=== PATIENT | female | born 1995 | race Caucasian/White ===

== ENCOUNTER 2022-12-19 17:47 | Emergency (ER) | payer OTHER, SELFPAY ==
[2022-12-19 17:55] VITALS: BP 117/80; PULSE 130; RESP 18; TEMP 37.1; O2SAT 99; BMI 32.3
[2022-12-19 18:19] VITALS: O2SAT 99
[2022-12-19 18:25] LABS: SARS-CoV-2 Ag NEGATIVE (NEGATIVE)
--- NOTE | 2022-12-19 18:33 | ED.GENADUL1 ---
HPI - General Adult General Chief complaint: Fever Stated complaint: FEVER, COUGH Time Seen by Provider: 12/19/22 17:56 Source: patient Mode of arrival: walk-in History of Present Illness HPI narrative: patient already diagnosed with bronchitis and bilateral ear infections - she is on augmentin and tessalon perles but is not taking tylenol or motrin. She was sent here by her family who told her that her skin looked yellow . No abdominal pain, vomiting or discolored stools. She complains of cough, achiness throughout the body and continued ear pain. Related Data Home Medications Medication Instructions Recorded Confirmed amoxicillin 875 mg-potassium 1 tab PO Q12H 12/19/22 12/19/22 clavulanate 125 mg tablet benzonatate 200 mg capsule 200 mg PO TID PRN cough 12/19/22 12/19/22 methylprednisolone 4 mg tablets in 4 mg PO . DIRECTED 12/19/22 12/19/22 a dose pack Allergies Allergy/AdvReac Type Severity Reaction Status Date / Time codeine Allergy Severe Verified 12/19/22 17:55 Exam Narrative Exam Narrative: Nurses notes and vital signs reviewed and patient is not hypoxic. afebrile General: Well-appearing and in no apparent distress. Skin: Warm, dry, no pallor noted. No rash. No scleral icterus or jaundice Head: Normocephalic, atraumatic. Neck: Supple, non-tender. no meningismus. No cervical lymphadenopathy. Eye: Pupils are equal, round and EOMI. No scleral icterus. Ears, Nose, Mouth, and Throat: TM are dull and erythematous bilaterally. Mild nasal mucosal hypertrophy. Oral mucosa is moist, mild posterior oropharynx erythema without exudate, uvula is mid-line Cardiovascular: Tachycardia Respiratory: No accessory muscle use or respiratory distress. Lungs with scattered rhonchi, no wheezing or ralesi Back: No CVA tenderness Musculoskeletal: normal ROM GI: Abdomen is soft, non-distended. Normal bowel sounds. No focal tenderness to palpation. No rebound, guarding, or rigidity noted. Neurological: A&O x4. No cranial nerve dysfunction observed. No truncal ataxia. Moves all extremities. Sensation intact. Psychiatric: Cooperative and interactive. Normal mood and affect. Constitutional Vital Signs, click to edit/add: Last Vital Signs Temp 98.8 F 12/19/22 17:55 Pulse 130 H 12/19/22 17:55 Resp 18 12/19/22 17:55 BP 117/80 12/19/22 17:55 Pulse Ox 99 12/19/22 18:19 O2 Del Method Room Air 12/19/22 18:19 Course Vital Signs Vital signs: Vital Signs Temperature 98.8 F 12/19/22 17:55 Pulse Rate 130 H 12/19/22 17:55 Respiratory Rate 18 12/19/22 17:55 Blood Pressure 117/80 12/19/22 17:55 Pulse Oximetry 99 12/19/22 17:55 Oxygen Delivery Method Room Air 12/19/22 17:55 Temperature 98.8 F 12/19/22 17:55 Pulse Rate 130 H 12/19/22 17:55 Respiratory Rate 18 12/19/22 17:55 Blood Pressure 117/80 12/19/22 17:55 Pulse Oximetry 99 12/19/22 18:19 Oxygen Delivery Method Room Air 12/19/22 18:19 Medical Decision Making MDM Narrative Medical decision making narrative: Covid swab was negative. Exam is consistent with bilateral ear infection and she has achiness associated with her illness. She was informed of results and given reassurance. Patient advised to rest, stay at home, practice social distancing, take Motrin and Tylenol for pain and fever if not allergic, stay well hydrated with Gatorade or similar drinks if vomiting or eat as tolerated if not and take any meds as prescribed. Reviewed reasons to return including rapid increase in respiratory rate, shortness of breath, confusion, inability to keep down sips of swallowed liquids for more than 24 hours. Asked patient to encourage any ill contacts to stay home and practice similar advice. Lab Data Lab results reviewed: Yes I reviewed the patient's lab results Labs: Lab Results 12/19/22 Range/Units 18:00 SARS-CoV-2 (PCR) Negative (NEGATIVE) Discharge Plan Discharge Chief Complaint: Fever Clinical Impression: Otitis media, Bronchitis Time of Disposition Decision: 18:38 Prescriptions / Home Meds: No Action amoxicillin-pot clavulanate 875-125 mg tablet 1 tab PO Q12H Patient Comments: STARTED 12/17 X 10DAYS benzonatate 200 mg capsule 200 mg PO TID PRN (Reason: cough) Patient Comments: STARTED 12/17 X 10 DAYS methylprednisolone 4 mg tablets,dose pack 4 mg PO . DIRECTED Patient Comments: STARTED ON 12/17 X 6 DAYS Instructions: Ear Infection (ED), Acute Bronchitis (ED) Stand Alone Forms: Portal Instructions Referrals: Physician,Non-Staff, MD [Primary Care Provider] - 1 week
[2022-12-19 18:45] VITALS: PULSE 110
[2022-12-20 14:11] LABS: SARS-CoV-2 NAA NOT DETECTED (NOT DETECTE)
== END 2022-12-19 18:48 | disposition home or self-care (01) ==
PROVIDERS: Emergency Provider Emergency Medicine
DX: J40 Bronchitis, not specified as acute or chronic (principal); H66.93 Otitis media, unspecified, bilateral; Z20.822 Contact with and (suspected) exposure to COVID-19
CPT/HCPCS: 87635; 87811; 99283; U0003

== ENCOUNTER 2023-09-08 19:23 | Emergency (ER) | payer SELFPAY ==
[2023-09-08 19:35] VITALS: BP 156/93; PULSE 96; TEMP 36.7; O2SAT 98; BMI 33.7
--- NOTE | 2023-09-08 20:06 | US_ITS ---
The [address] [address] Patient Name: JANNETTE LY MRN: [id number] date: 1995 Sex: F Assigned Patient Location: ER Current Patient Location: ER Accession/Order Number: [id number] Exam Date: 09/08/2023 21:39 Report Date: 09/08/2023 23:05 At the request of: ADELA MARKER Procedure: US pelvis transvaginal EXAM: US pelvis transvaginal HISTORY: R/O ovarian cyst COMPARISON: Correlation is made with CT abdomen and pelvis examination of the same date. TECHNIQUE: Real time pelvic ultrasound examination was performed using Duplex Doppler by a transvaginal approach. FINDINGS: The uterus is normal in size measuring 8.7 cm in length. There is a 0.8 x 0.7 x 0.9 cm suspected anterior uterine body fibroid. The endometrium is within normal limits with the stripe measuring up to 0.3 cm in thickness. A small amount of endometrial fluid is seen. The right ovary measures 3.1 x 1.8 x 2.1 cm, and the left ovary measures 4.1 x 2.4 x 2.4 cm. Arterial and venous blood flow is seen in both ovaries. There is a left ovarian follicle measures 2.7 x 2.1 x 2.3 cm. There is no significant free fluid. Prominent vessels are seen in the right hemipelvis. US/US pelvis transvaginal IMPRESSION: 1. Small left ovarian follicle without evidence of torsion. 2. Small uterine body fibroid. 3. Prominent vessels in the right hemipelvis which can be seen with pelvic congestion syndrome. 4. Small amount of fluid in the endometrial canal. Electronically authenticated by: Dennis MOSELEY Date: 09/08/2023 23:05
--- NOTE | 2023-09-08 20:06 | CT_ITS ---
[address] [address] Patient Name: JANNETTE LY MRN: [id number] date: 1995 Sex: F Assigned Patient Location: ER Current Patient Location: Accession/Order Number: [id number] Exam Date: 09/08/2023 20:53 Report Date: 09/08/2023 22:00 At the request of: ADELA MARKER Procedure: CT abdomen pelvis w con CT ABDOMEN AND PELVIS WITH CONTRAST: INDICATION: Right lower quadrant pain. COMPARISON: None. TECHNIQUE: Helical CT images of the abdomen and pelvis were obtained after the administration of intravenous contrast. Dose reduction techniques were achieved by using automated exposure control and/or adjustment of mA and/or kV according to patient size and/or use of iterative reconstruction technique. FINDINGS: LOWER CHEST: The visualized lung bases are clear. LIVER: There is hepatomegaly and diffuse hepatic steatosis. GALLBLADDER AND BILIARY SYSTEM: Unremarkable. SPLEEN: Unremarkable. PANCREAS: Unremarkable. ADRENAL GLANDS: Unremarkable. KIDNEYS AND URETERS: The kidneys enhance symmetrically. There is no hydronephrosis. No focal renal lesions. BLADDER: Under distended. GASTROINTESTINAL TRACT: No evidence of bowel obstruction or colitis. Normal appendix. VASCULATURE: Unremarkable. RETROPERITONEUM AND LYMPH NODES: No lymphadenopathy or mass. PERITONEUM/MESENTERY: No abdominal ascites. No free air. PELVIS: There are left ovarian cysts measuring 3.1 x 2.7 cm and 2.2 x 1.9 cm. No pelvic ascites or lymphadenopathy. BODY WALL: Unremarkable. BONES: Degenerative changes of the sacroiliac joints bilaterally. CT/CT abdomen pelvis w con IMPRESSION: 1. Left ovarian cysts. 2. Fatty liver. Electronically authenticated by: AYUSH CHIANG Date: 09/08/2023 22:00
--- NOTE | 2023-09-08 20:09 | ED.ABDPAIN1 ---
HPI - Abdominal Pain General Chief Complaint: Abdominal Pain Stated Complaint: Abdominal Pain Time Seen by Provider: 09/08/23 19:50 Source: patient Mode of arrival: walk-in Limitations: no limitations History of Present Illness HPI narrative: This 28-year-old female with a history of pyelonephritis presents for evaluation of right lower quadrant abdominal pain with radiation into her right flank associated with nausea and a fever earlier today. She has not had any vomiting or diarrhea. She denies any urinary symptoms. She doubts the possibility of but she did miss her last menstrual period. She states that the pain started on Wednesday and has been increasing in intensity since that time. On Wednesday she was seen by her family physician and an ultrasound was ordered but she cannot get the ultrasound performed until September 15 greater than 1 week from today. She states she cannot tolerate the pain until that time. At age 18 she did have a history of ovarian cyst. She denies any chest pain or shortness of breath. She denies any vaginal discharge odor or itching. She is not concerned about STDs. She is not having any dysuria or hematuria. Related Data Home Medications ?Medication ?Instructions ?Recorded ?Confirmed amoxicillin 875 mg-potassium 1 tab PO Q12H 12/19/22 12/19/22 clavulanate 125 mg tablet benzonatate 200 mg capsule 200 mg PO TID PRN cough 12/19/22 12/19/22 methylprednisolone 4 mg tablets in 4 mg PO . DIRECTED 12/19/22 12/19/22 a dose pack Allergies Allergy/AdvReac Type Severity Reaction Status Date / Time codeine Allergy Severe Verified 09/08/23 19:43 Review of Systems ROS Status of ROS 10 or more systems reviewed and unremarkable except as noted in history and below Exam Narrative Exam Narrative: Vital signs and Nursing Notes reviewed: She is afebrile, pulse and blood pressure are elevated, she is not hypoxic with pulse ox of 98% on room air General: Awake, alert, oriented, no acute distress, lying comfortably on the stretcher, ambulatory with a steady gait, no distress noted HEENT: Normocephalic atraumatic, mucous membranes are moist and pink, eyes are clear, normal conjunctiva, vision is grossly intact Neck: Supple, no meningeal signs, no anterior or posterior cervical lymphadenopathy Chest: Lungs are clear to auscultation with good air entry, there is no wheezing rhonchi or rales appreciated no accessory muscle use, patient is speaking in complete sentences-no chest wall tenderness to palpation CVS: Regular rate and rhythm S1-S2, no murmurs rubs or gallops, pulses are brisk and equal bilaterally ABD: Obese,Soft, nondistended, with tenderness in RLQ and rebound, negative Rovsing signs, bowel sounds are normal, no pulsatile masses appreciated Extremities: Moving all extremities, no lower extremity tenderness or swelling noted, negative Homans' sign, pulses are brisk and equal bilaterally Skin: Normal in appearance without rash,pallor, petechiae or purpura Neuro: No focal deficits Constitutional Vital Signs, click to edit/add: Last Vital Signs Temp 98.1 F 09/08/23 19:35 Pulse 96 H 09/08/23 19:35 Resp 18 09/08/23 19:35 BP 156/93 H 09/08/23 19:35 Pulse Ox 98 09/08/23 19:35 Course Vital Signs Vital signs: Vital Signs Temperature 98.1 F 09/08/23 19:35 Pulse Rate 96 H 09/08/23 19:35 Respiratory Rate 18 09/08/23 19:35 Blood Pressure 156/93 H 09/08/23 19:35 Pulse Oximetry 98 09/08/23 19:35 Temperature 98.1 F 09/08/23 19:35 Pulse Rate 96 H 09/08/23 19:35 Respiratory Rate 18 09/08/23 19:35 Blood Pressure 156/93 H 09/08/23 19:35 Pulse Oximetry 98 09/08/23 19:35 MDM - Abdominal Pain MDM Narrative Medical decision making narrative: This 28-year-old female presents for evaluation of 5 days of right lower quadrant abdominal pain that is now radiating somewhat into her right flank and associated with nausea. She states she had a fever earlier in the day. She had taken some Tylenol prior to arrival. She did not have a fever here. She was mildly tender in her right lower quadrant with mild rebound, no guarding or rigidity is appreciated. There is no flank tenderness. There was a negative Rovsing sign. An IV was placed and she was medicated with IV fluids, Zofran and Toradol. Routine labs are reviewed. Her white count is mildly elevated at 13. She has a normal hemoglobin. test was negative. Urinalysis is negative for infection. She stated that she had missed her last menstrual period. She is not concerned about any STDs. Electrolytes were reviewed. She has normal electrolytes with the exception of a low potassium of 2.9. She was medicated with 40 mEq of oral potassium in the emergency department. She states that she has had hypokalemia in the past. Ultrasound of the abdomen pelvis was ordered and it does show pelvic congestion syndrome and some left sided ovarian follicles. There was no sign of ovarian torsion or other notable abnormality on the ultrasound. CT scan of the abdomen pelvis again shows left-sided ovarian cyst without any notable torsion, appendix was noted to be normal, and there was mild hepatomegaly with fatty liver. The results of the CAT scan and ultrasound were discussed with the patient and she was given copies to share with her family physician. On reevaluation she was feeling better. Her nausea was resolved and pain had improved. She will be discharged home with prescription for potassium replacement, ibuprofen and Zofran. Medical Records Medical records narrative: [place] [address] CT Scan Report Signed Patient: JANNETTE LY MR#: [id number] : 1995 Acct:[id number] Age/Sex: 28 / F ADM Date: 09/08/23 Loc: ER Attending Dr: Ordering Physician: Adela Mccloud Date of Service: 09/08/23 Procedure(s): CT abdomen pelvis w con Accession Number(s): [id number] cc: WM THORNE The [address] [address] Patient Name: JANNETTE LY MRN: [id number] date: 1995 Sex: F Assigned Patient Location: ER Current Patient Location: ER Accession/Order Number: [id number] Exam Date: 09/08/2023 20:53 Report Date: 09/08/2023 22:00 At the request of: ADELA MCCLOUD Procedure: CT abdomen pelvis w con CT ABDOMEN AND PELVIS WITH CONTRAST: INDICATION: Right lower quadrant pain. COMPARISON: None. TECHNIQUE: Helical CT images of the abdomen and pelvis were obtained after the administration of intravenous contrast. Dose reduction techniques were achieved by using automated exposure control and/or adjustment of mA and/or kV according to patient size and/or use of iterative reconstruction technique. FINDINGS: LOWER CHEST: The visualized lung bases are clear. LIVER: There is hepatomegaly and diffuse hepatic steatosis. GALLBLADDER AND BILIARY SYSTEM: Unremarkable. SPLEEN: Unremarkable. PANCREAS: Unremarkable. ADRENAL GLANDS: Unremarkable. KIDNEYS AND URETERS: The kidneys enhance symmetrically. There is no hydronephrosis. No focal renal lesions. BLADDER: Under distended. GASTROINTESTINAL TRACT: No evidence of bowel obstruction or colitis. Normal appendix. VASCULATURE: Unremarkable. RETROPERITONEUM AND LYMPH NODES: No lymphadenopathy or mass. PERITONEUM/MESENTERY: No abdominal ascites. No free air. PELVIS: There are left ovarian cysts measuring 3.1 x 2.7 cm and 2.2 x 1.9 cm. No pelvic ascites or lymphadenopathy. BODY WALL: Unremarkable. BONES: Degenerative changes of the sacroiliac joints bilaterally. CT/CT abdomen pelvis w con IMPRESSION: 1. Left ovarian cysts. 2. [place]ty [place] [address] Ultrasound Report Signed Patient: JANNETTE LY MR#: [id number] : 1995 Acct:[id number] Age/Sex: 28 / F ADM Date: 09/08/23 Loc: ER Attending Dr: Ordering Physician: Adela Mccloud Date of Service: 09/08/23 Procedure(s): US pelvis transvaginal Accession Number(s): [id number] cc: WM THORNE ; Adela Mccloud~ The [address] [address] Patient Name: JANNETTE LY MRN: [id number] date: 1995 Sex: F Assigned Patient Location: ER Current Patient Location: ER Accession/Order Number: [id number] Exam Date: 09/08/2023 21:39 Report Date: 09/08/2023 23:05 At the request of: ADELA MCCLOUD Procedure: US pelvis transvaginal EXAM: US pelvis transvaginal HISTORY: R/O ovarian cyst COMPARISON: Correlation is made with CT abdomen and pelvis examination of the same date. TECHNIQUE: Real time pelvic ultrasound examination was performed using Duplex Doppler by a transvaginal approach. FINDINGS: The uterus is normal in size measuring 8.7 cm in length. There is a 0.8 x 0.7 x 0.9 cm suspected anterior uterine body fibroid. The endometrium is within normal limits with the stripe measuring up to 0.3 cm in thickness. A small amount of endometrial fluid is seen. The right ovary measures 3.1 x 1.8 x 2.1 cm, and the left ovary measures 4.1 x 2.4 x 2.4 cm. Arterial and venous blood flow is seen in both ovaries. There is a left ovarian follicle measures 2.7 x 2.1 x 2.3 cm. There is no significant free fluid. Prominent vessels are seen in the right hemipelvis. US/US pelvis transvaginal IMPRESSION: 1. Small left ovarian follicle without evidence of torsion. 2. Small uterine body fibroid. 3. Prominent vessels in the right hemipelvis which can be seen with pelvic congestion syndrome. 4. Small amount of fluid in the endometrial canal. Lab Data Attestation: I reviewed the patient's lab results. Labs: Lab Results 09/08/23 09/08/23 Range/Units 20:00 20:05 WBC 13.0 H (4.0-11.0) 10^3/uL RBC 4.39 (4.20-5.40) 10^6/uL Hgb 13.4 (12.0-16.0) g/dL Hct 39.3 (36.0-48.0) % MCV 89.5 (81.0-99.0) fL MCH 30.5 (26.7-34.0) pg MCHC 34.1 (29.9-35.2) g/dL RDW 11.9 (11.0-15.0) % Plt Count 431 (150-450) 10^3/uL MPV 8.6 L (9.5-13.5) fL Neut % (Auto) 54.9 (43.0-75.0) % Lymph % (Auto) 37.5 (20.5-60.0) % [place] % (Auto) 5.5 (1.7-12.0) % Eos % (Auto) 1.0 (0.9-7.0) % Baso % (Auto) 0.6 (0.2-2.0) % Neut # (Auto) 7.1 H (1.4-6.5) 10^3/uL Lymph # (Auto) 4.9 H (1.2-3.8) 10^3/uL [place] # (Auto) 0.7 (0.3-0.8) 10^3/uL Eos # (Auto) 0.1 (0.0-0.7) 10^3/uL Baso # (Auto) 0.1 (0.0-0.1) 10^3/uL Abs Immat Gran (auto) 0.07 H (0.00-0.03) 10^3/uL Imm/Tot Granulo (auto) 0.5 (0.0-0.5) % Sodium 136 (136-145) mmol/L Potassium 2.9 L* (3.5-5.1) mmol/L Chloride 101 (98-107) mmol/L Carbon Dioxide 26.0 (21.0-32.0) mmol/L Anion Gap 11.9 BUN 7.0 (7.0-18.0) mg/dL Creatinine 0.86 (0.55-1.02) mg/dL Est GFR ( Amer) >60 (>=60) Est GFR (Non-Af Amer) >60 (>=60) BUN/Creatinine Ratio 8.1 Glucose 122 H (74-106) mg/dL Lactate 2.0 (0.4-2.0) mmol/L Calcium 9.2 (8.5-10.1) mg/dL Total Bilirubin 0.3 (0.2-1.0) mg/dL AST 16 (15-37) U/L ALT 22 (14-59) U/L Alkaline Phosphatase 93 (46-116) U/L Total Protein 8.2 (6.4-8.2) g/dL Albumin 3.8 (3.4-5.0) g/dL Globulin 4.4 g/dL Albumin/Globulin Ratio 0.9 Urine Color Yellow (YELLOW) Urine Clarity Clear (CLEAR) Urine pH 6.0 (5.0-9.0) Ur Specific [place] >=1.030 A (1.005-1.025) Urine Protein Negative (NEG/TRACE) mg/dL Urine Glucose (UA) Negative (NEGATIVE) mg/dL Urine Ketones Negative (NEGATIVE) mg/dL Urine Occult Blood Large A (NEGATIVE) Urine Nitrite Negative (NEGATIVE) Urine Bilirubin Negative (NEGATIVE) Urine Urobilinogen 0.2 (0.2-1.0) EU/dL Ur Leukocyte Esterase Negative (NEGATIVE) Urine RBC 5-10 A (0-2) #/HPF Urine WBC 2-5 A (NONE SEEN) #/HPF Ur Squamous Epith Cells Moderate A (NONE/RARE) #/LPF Urine Crystals None seen (None Seen) #/HPF Amorphous Sediment Moderate Urine Bacteria None seen (NONE SEEN) #/HPF Urine Casts None seen (NONE SEEN) #/LPF Urine Mucus Moderate A (NONE SEEN) Ur Culture Indicated? No Urine HCG, Qual Negative (NEGATIVE) Discharge Plan Discharge Stand Alone Forms: Portal Instructions Chief Complaint: Abdominal Pain Clinical Impression: Female pelvic congestion syndrome, Abdominal pain, Follicular cyst of ovary, Hypokalemia Patient Disposition: Home, Self-Care Time of Disposition Decision: 23:26 Condition: Good Prescriptions / Home Meds: No Action amoxicillin-pot clavulanate 875-125 mg tablet 1 tab PO Q12H Patient Comments: STARTED 12/17 X 10DAYS benzonatate 200 mg capsule 200 mg PO TID PRN (Reason: cough) Patient Comments: STARTED 12/17 X 10 DAYS methylprednisolone 4 mg tablets,dose pack 4 mg PO . DIRECTED Patient Comments: STARTED ON 12/17 X 6 DAYS Print Language: Chadian Instructions: Ovarian Cyst (ED), Potassium Content of Foods List (ED), Hypokalemia (ED), Abdominal Pain (ED) Referrals: WM THORNE [Primary Care Provider] - 1 week
[2023-09-08 20:31] LABS: Basophils Absolute Auto 0.1 10^3/uL (0.0-0.1); Basophils Percent Auto 0.6 % (0.2-2.0); Eosinophils Absolute Auto 0.1 10^3/uL (0.0-0.7); Hematocrit 39.3 % (36.0-48.0); Hemoglobin 13.4 g/dL (12.0-16.0); Immature Granulocytes Abs Auto 0.07 10^3/uL (0.00-0.03); Immature Granulocytes Pct Auto 0.5 % (0.0-0.5); Lymphocytes Absolute Auto 4.9 10^3/uL (1.2-3.8); Lymphocytes Percent Auto 37.5 % (20.5-60.0); Mean Corpuscular HGB Conc 34.1 g/dL (29.9-35.2); Mean Corpuscular Hemoglobin 30.5 pg (26.7-34.0); Mean Corpuscular Volume 89.5 fL (81.0-99.0); Mean Platelet Volume 8.6 fL (9.5-13.5); Monocytes Absolute Auto 0.7 10^3/uL (0.3-0.8); Monocytes Percent Auto 5.5 % (1.7-12.0); Neutrophils Absolute Auto 7.1 10^3/uL (1.4-6.5); Neutrophils Percent Auto 54.9 % (43.0-75.0); Platelet Count 431 10^3/uL (150-450); Red Blood Count 4.39 10^6/uL (4.20-5.40); Red Cell Distribution Width 11.9 % (11.0-15.0)
[2023-09-08 20:36] LABS: Bilirubin Urine NEGATIVE (NEGATIVE); Blood Urine LARGE (NEGATIVE); Clarity Urine CLEAR (CLEAR); Color Urine YELLOW (YELLOW); Glucose Urine UA NEGATIVE (NEGATIVE); Ketones Urine NEGATIVE (NEGATIVE); Leukocyte Esterase Urine NEGATIVE (NEGATIVE); Nitrite Urine NEGATIVE (NEGATIVE); Protein Urine NEGATIVE (NEG/TRACE); Specific Gravity Urine >=1.030 (1.005-1.025); Urobilinogen Urine 0.2 EU/dL (0.2-1.0)
[2023-09-08 20:38] LABS: HCG Qualitative Urine* NEGATIVE (NEGATIVE)
[2023-09-08] MEDS: 0.9 % SODIUM CHLORIDE 1,000 ML 1000 ML IV (20:42)
[2023-09-08] MEDS: ONDANSETRON PF 4 MG/2 ML VIAL IV (20:43)
[2023-09-08] MEDS: KETOROLAC TROMETHAMINE 30 MG/ML VIAL IVP (20:43)
[2023-09-08 20:45] LABS: Bacteria Urine NONE SEEN #/HPF (NONE SEEN); Crystals Seen? None Seen #/HPF (None Seen); Mucus Urine MODERATE (NONE SEEN); Squamous Epithelial Cell Urine MODERATE #/LPF (NONE/RARE)
[2023-09-08 20:46] LABS: Amorphous Sediment Urine MODERATE; Cast Seen? NONE SEEN #/LPF (NONE SEEN); Urine Culture Indicated NO
[2023-09-08 20:49] LABS: Alanine Aminotransferase 22 U/L (14-59); Albumin Globulin Ratio 0.9; Albumin Level 3.8 g/dL (3.4-5.0); Alkaline Phosphatase 93 U/L (46-116); Anion Gap 11.9; Aspartate Amino Transferase 16 U/L (15-37); BUN Creatinine Ratio 8.1; Bilirubin Total 0.3 mg/dL (0.2-1.0); Calcium 9.2 mg/dL (8.5-10.1); Chloride 101 mmol/L (98-107); Estimated GFR (African America >60 (>=60); Estimated GFR (Non-African Ame >60 (>=60); Globulin 4.4 g/dL; Glucose 122 mg/dL (74-106); Sodium 136 mmol/L (136-145); Total Protein 8.2 g/dL (6.4-8.2)
[2023-09-08 20:50] LABS: Potassium 2.9 mmol/L (3.5-5.1)
[2023-09-08] MEDS: POTASSIUM CHLORIDE 10 MEQ ER TABLET 40 MEQ PO (21:22)
== END 2023-09-08 23:56 | disposition home or self-care (01) ==
PROVIDERS: Emergency Provider Emergency Medicine; PCP Physician Assistant
DX: N94.89 Other specified conditions associated with female genital organs and menstrual cycle (principal); N83.202 Unspecified ovarian cyst, left side; K76.0 Fatty (change of) liver, not elsewhere classified; E87.6 Hypokalemia; R10.31 Right lower quadrant pain
CPT/HCPCS: 36415; 74177; 76830; 80053; 81001; 83605; 84703; 85025; 87040; 96374; 96375; 99285; Q9967

== ENCOUNTER 2023-09-12 19:30 | Emergency (ER) | payer SELFPAY ==
--- OUTSIDE RECORDS SUMMARY | 2023-09-12 19:37 | XMS_ITS | CCD ---
Author Organization [facility] Care Team Providers Care Carpet Cleaning Technician Name Role Phone Juliana Thorne Primary Care Unavailable Paddy Figueroa Admitting UnavailPaddy Langston Attending Unavailab YEVGENIY Talbert Attending Unavailable YEVGENIY RIVERS Referring Unavailable YEVGENIY RIVERS Attending Unavailable YEVGENIY RIVERS Referring Unavailable Hemmer Juliana BERG Primary Care Provider [phone] RYAN FABIAN Referring Unavailable HEMHIEN, JULIANA Primary Care Unavailable Anuel Peace MD Primary Care Provider ANJELICA MOELLER Attending Unavailable HEMMERJULIANA Referring Unavailable HEMMER, JULIANA Primary Care Unavailable OOSTRRYAN Bone Attending Unavailable HEMHIEN, JULIANA Referring Unavailable HEMMER, JULIANA Primary Care Unavailable OOSTRRYAN Bone Attending Unavailable HEMJULIANA STANFORD Referring Unavailable HEMMER, JULIANA Primary Care Unavailable HEMJULIANA STANFORD Referring Unavailable HEMMER, JULIANA Primary Care Unavailable ANJELICA MOELLER Attending Unavailable OOSTRARYAN Referring Unavailable HEMMER, JULIANA Primary Care Unavailable ANJELICA MOELLER Referring Unavailable HEMMER, JULIANA Primary Care Unavailable YEVGENIY RIVERS Attending Unavailable HEMMERJULIANA Attending Unavailable HEMMERJULIANA Attending Unavailable HEMMERJULIANA Attending Unavailable HEMMERJULIANA Attending Unavailable Allergies Allergy Classification Reported Allergen(s) Allergy Type Date of Onset Reaction(s) Facility (10 sources) Codeine; Translations: [codeine] Drug Allergy [facility] (7 sources) Lactase; Translations: [LACTASE] Drug Allergy 1 GI Disturbance [facility] (2 sources) Lactose (non-medical use) Drug Allergy 3 Unknown [facility] Work Phone: Medications Current Medications Medication Drug Class(es) Dates Sig (Normalized) Sig (Original) acetaminophen 500 mg oral tablet (2 sources) Start: 03-10-2022 take 1 tablet by mouth every six hours as needed for pain Acetaminophen Extra Strength 500 MG tablet Take 500 mg by mouth every 6 (six) hours if needed for mild pain. 0 03/10/2022 Active ergocalciferol 1.25 mg oral capsule (4 sources) Provitamin D2 Compound Start: 05-26-2023 ergocalciferol (Vitamin D2) 1.25 MG (99899 UT) capsule Start: 05-25-2023 take 1 capsule by mo uth every week ergocalciferol (DRISDOL) 1,250 mcg (50,000 unit) capsule Indications: Vitamin D deficiency Take 1 capsule (50,000 Units total) by mouth once a week. 12 capsule 0 05/25/2023 Active Ethinyl Estradiol / Ferrous fumarate / Norethindrone (5 sources) Estrogen Start: 11-17-2022 take 1 tablet by mouth in the morning, then take 0.05 tablet by mouth once norethindrone-e.estradioL-iron (JUNEL FE 05/08, ,) 1 mg-20 mcg (21)/75 mg (7) per tablet Indications: Encounter for surveillance of other contraceptive Take 1 tablet by mouth in the morning. 28 tablet 12 11/17/2022 Active ethinyl estradiol 0.005 mg / norethindrone acetate 1 mg oral tablet (2 sources) Estrogen norethindrone-et hinyl estradiol (Femhrt 04/23) 1-5 MG-MCG tablet Take 1 tablet by mouth 1 (one) time each day. 0 Active ferrous sulfate 325 mg oral tablet (5 sources) Start: 05-25-2023 End: 05-24-2024 take 1 tablet by mouth every other day ferrous sulfate 325 (65 FE) mg tablet Indications: History of iron deficiency Take 1 tablet (325 mg total) by mouth every other day. 45 tablet 3 05/25/2023 05/24/2024 Active folic acid 0.4 mg / vitamin b12 1 mg sublingual tablet (1 source) Vitamin B12 Start: 05-25-2023 End: 05-24-2024 take 100-5000 ug under the tongue in the morning Cobalamin Combinations (B-12) 100-[address] 5,000 mcg under the tongue in the morning. 0 05/25/2023 05/24/2024 Active phentermine hydrochloride 37.5 mg oral tablet (5 sources) Sympathomimetic Amine Anorectic Start: 04-28-2023 End: 06-26-2023 take 1 tablet by mouth before mealtime phentermine (Adipex-P) 37.5 MG tablet Indications: Obesity (BMI 30-39.9) Take 1 tablet (37.5 mg) by mouth in the morning. Take before meals. 30 tablet 0 05/27/2023 06/26/2023 Active rifAXIMin 200 mg oral tablet (2 sources) Rifamycin Antibacterial Start: 05-20-2023 End: 06-03-2023 take 1 tablet by mouth in the morning, then take 1 tablet by mouth in the evening, then take 1 tablet by mouth at bedtime rifAXIMin (Xifaxan) 200 MG tablet Indications: Irritable bowel syndrome with diarrhea Take 1 tablet (200 mg) by mouth in the morning and 1 tablet (200 mg) in the evening and 1 tablet (200 mg) before bedtime. Do all this for 14 days. 42 tablet 0 05/20/2023 06/03/2023 Active SUMAtriptan 25 mg oral tablet (6 sources) Serotonin-1b and Serotonin-1d Receptor Agonist take 1 tablet by mouth every twelve hours SUMAtriptan (IMITREX) 25 mg tablet Take 1 tablet (25 mg total) by mouth every 12 (twelve) hours. 0 Active tranexamic acid 650 mg oral tablet (5 sources) Antifibrinolytic Agent Start: 05-25-2023 tranexamic acid (LYSTEDA) 65 0 mg tablet Indications: Menorrhagia with regular cycle Take 2 tablets (1,300 mg total) by mouth 3 (three) times a day as needed (take days 1-5 of menses). 30 tablet 5 05/25/2023 Active vitamin b12 1 mg/ml injectable solution (3 sources) Vitamin B12 Start: 05-28-2023 End: 05-27-2024 cyanocobalamin, vitamin B-12 , 1,000 mcg/mL kit Indications: B12 deficiency Inject 1,000 mcg as directed every 28 days. 3 kit 3 05/28/2023 05/27/2024 Active Start: 05-25-2023 End: 05-24-2024 take 1 tablet under the tongue in the morning cyanocobalamin, vitamin B-12, 5,000 mcg tablet, sublingual Indications: B12 deficiency Place 5,000 mcg under the tongue in the morning. 90 tablet 3 05/25/2023 05/24/2024 Active Problems Active Problems Problem Classification Problem Date Documented Da te Episodic/Chronic Anxiety disorders (2 sources) Posttraumatic stress disorder; Translations: [Post-traumatic stress disorder, unspecified] Onset: 10-06-2022 10-06-2022 Chronic Headache; including migraine (10 sources) Migraine without aura; Translations: [Migraine without aura, not intractable, without status migrainosus] Onset: 09-22-2013 02-09-2020 Chronic Immunizations and screening for infectious disease (5 sources) Anti-nuclear factor positive; Translations: [Other specified abnormal immunological findings in serum] Onset: 06-10-2023 05-27-2023 Episodic Melanomas of skin (7 sources) Malignant melanoma; Translations: [Malignant melanoma of skin, unspecified] Onset: 09-09-2021 Resolved: 04-28-2023 09-09-2021 Chronic Menstrual disorders (4 sources) Menorrhagia; Translations: [Excessive and frequent menstruation with regular cycle] Onset: 10-06-2022 05-25-2023 Chronic Mood disorders (7 sources) Reactive depression (situational); Translations: [Major depressive disorder, single episode, unspecified] Onset: 09-20-2017 Resolved: 12-06-2018 12-06-2018 Chronic Nutritional deficiencies (6 sources) Vitamin D deficiency; Translations: [Vitamin D deficiency, unspecified] Onset: 10-07-2022 05-25-2023 Chronic Nutritional deficiencies (18 sources) Iron deficiency; Translations: [Iron deficiency] Onset: 05-26-2022 05-26-2022 Episodic Other acquired deformities (7 sources) Scoliosis deformity of spine; Translations: [Scoliosis, unspecified] Onset: 09-22-2013 02-09-2020 Chronic Other bone disease and musculoskeletal deformities (2 sources) Idiopathic scoliosis; Translations: [Other idiopathic scoliosis, site unspecified] 06-10-2023 Chronic Other bone disease and musculoskeletal deformities (1 source) Other idiopathic scoliosis, site unspecified; Translations: [Other idiopathic scoliosis, site unspecified] Onset: 02-09-2020 Chronic Other circulatory disease (1 source) Raynaud's disease; Translations: [Raynaud's syndrome without gangrene] 05-25-2023 Chronic Other circulatory disease (1 source) Raynaud's syndrome without gangrene; Translations: [Raynaud's syndrome without gangrene] Onset: 05-25-2023 Chronic Other complications of (7 sources) Iron deficiency anemia of ; Translations: [Anemia complicating , unspecified trimester] Onset: 01-03-2022 01-03-2022 Chronic Other gastrointestinal disorders (7 sources) Malabsorption - iron; Translations: [Intestinal malabsorption, unspecified] Onset: 01-03-2022 01-03-2022 Chronic Other gastrointestinal disorders (3 sources) Irritable bowel syndrome with diarrhea; Translations: [Irritable bowel syndrome with diarrhea] Onset: 04-28-2023 04-28-2023 Chronic Other liver diseases (2 sources) Steatosis of liver; Translations: [Fatty (change of) liver, not elsewhere classified] Onset: 10-06-2022 10-06-2022 Chronic Other nutritional; endocrine; and metabolic disorders (3 sources) Body mass index 30+ - obesity; Translations: [Obesity, unspecified] Onset: 10-06-2022 10-06-2022 Chronic Other nutritional; endocrine; and metabolic disorders (1 source) Hypomagnesemia; 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] Onset: 05-25-2023 Chronic Other nutritional; endocrine; and metabolic disorders (1 source) History of iron deficiency; Translations: [Personal history of other endocrine, nutritional and metabolic disease] 05-25-2023 Episodic Other nutritional; endocrine; and metabolic disorders (1 source) Personal history of other endocrine, nutritional and metabolic disease; Translations: [Personal history of other endocrine, nutritional and metabolic disease] Onset: 08-25-2023 Episodic Other screening for suspected conditions (not mental disorders or infectious disease) (3 sources) Decreased vitamin D; Translations: [Other specified abnormal findings of blood chemistry] Onset: 06-10-2023 06-10-2023 Episodic Ovarian cyst (2 sources) Cyst of ovary; Translations: [Unspecified ovarian cyst, unspecified side] Onset: 04-28-2023 04-28-2023 Episodic Residual codes; unclassified (2 sources) Insomnia; Translations: [Other insomnia] Onset: 10-06-2022 10-06-2022 Chronic Unclassified (1 source) Thrombocytosis, unspecified; Translations: [Thrombocytosis, unspecified] Onset: 08-25-2023 Unclassified (1 source) New Patient Onset: 06-10-2023 Past or Other Problems Problem Classification Problem Date Documented Da te Episodic/Chronic Deficiency and other anemia (5 sources) Iron deficiency anemia; Translations: [Iron deficiency anemia, unspecified] Onset: 01-03-2022 01-03-2022 Episodic Deficiency and other anemia (5 sources) Iron deficiency anemia secondary to inadequate dietary iron intake; Translations: [Other iron deficiency anemias] Onset: 03-31-2018 Resolved: 02-09-2020 02-09-2020 Episodic Fluid and electrolyte disorders (3 sources) Hypokalemia; Translations: [Hypokalemia] Onset: 10-06-2022 10-06-2022 Episodic Hemorrhage during ; abruptio placenta; placenta previa (5 sources) Placenta previa; Translations: [Complete placenta previa NOS or without hemorrhage, first trimester] Onset: 10-04-2017 Resolved: 12-06-2018 12-06-2018 Episodic Melanomas of skin (7 sources) History of malignant melanoma of the skin; Translations: [Personal history of malignant melanoma of skin] Onset: 08-28-2021 08-28-2021 Episodic Mood disorders (5 sources) Mood disorders Onset: 08-25-2022 Resolved: 05-25-2023 08-25-2022 Neoplasms of unspecified nature or uncertain behavior (3 sources) Thrombocytosis; Translations: [Thrombocytosis, unspecified] Onset: 10-06-2022 05-25-2023 Episodic Other complications of ; puerperium affecting management of mother (7 sources) Abnormality of heart; Translations: [ ventricular septal defect affecting antepartum care of mother] Onset: 12-09-2021 12-09-2021 Episodic Other complications of (5 sources) Anemia in mother complicating , childbirth AND/OR puerperium; Translations: [Anemia complicating , third trimester] Onset: 02-15-2018 Resolved: 02-09-2020 02-09-2020 Chronic Other complications of (7 sources) Inherited disorder of folate metabolism; Translations: [Endocrine, nutritional and metabolic diseases complicating , second trimester] Onset: 08-28-2021 08-28-2021 Episodic Other complications of (5 sources) Symptomatic disorders in ; Translations: [ related conditions, unspecified, unspecified trimester] Onset: 06-24-2017 Resolved: 12-06-2018 12-06-2018 Episodic Other complications of (5 sources) Reduced movement; Translations: [Decreased movements, third trimester, not applicable or unspecified] Onset: 03-01-2018 Resolved: 12-06-2018 12-06-2018 Episodic Other complications of (5 sources) Vaginal discharge; Translations: [Other specified related conditions, third trimester] Onset: 03-07-2018 Resolved: 12-06-2018 12-06-2018 Episodic Other female genital disorders (7 sources) H/O: miscarriage; Translations: [Recurrent loss] Onset: 02-20-2020 12-29-2020 Episodic Other gastrointestinal disorders (2 sources) Slow transit constipation; Translations: [Slow transit constipation] Onset: 10-06-2022 10-06-2022 Episodic Other nutritional; endocrine; and metabolic disorders (6 sources) Gitelman syndrome; 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] Onset: 12-27-2020 Resolved: 03-11-2021 03-11-2021 Chronic Other and delivery including normal (5 sources) Normal ; Translations: [Encounter for supervision of normal , unspecified, third trimester] Onset: 04-01-2018 Resolved: 12-06-2018 12-06-2018 Episodic Polyhydramnios and other problems of amniotic cavity (7 sources) Tiago rupture of membranes onset of labor within 24 hours; Translations: [Premature rupture of membranes, onset of labor within 24 hours of rupture, unspecified weeks of gestation] Onset: 03-07-2022 Resolved: 04-28-2023 03-07-2022 Episodic Residual codes; unclassified (5 sources) Family history of Spina bifida; Translations: [Family history of other congenital malformations, deformations and chromosomal abnormalities] Onset: 10-04-2017 Resolved: 12-06-2018 12-06-2018 Episodic Spontaneous (2 sources) Miscarriage; Translations: [Complete or unspecified spontaneous without complication] Onset: 04-28-2023 Resolved: 04-28-2023 04-28-2023 Episodic Results Test Name Value Interpretation Reference Range Facility ANTI CARDIOLIPIN AB IGG IGA IGMon 06-10-2023 KEVIN IgA <2.0 Normal 0-19.9 [facility] Comment on above: Performed By: #### C SHAAN, 23420-3, 1987-08, FEPR, 2823-3, 86244- 9, 2276-4, 2284-8, 2131-9, 81263-7, 73125-9, 72541-3, 5130-0, 75093-1, 01397-4, 54614-5 #### [facility] ([id number]) [address] [place] [address], [address] [place] [address] KEVIN IgG <1.6 Normal 0-19.9 [facility] Comment on above: Performed By: #### C SHAAN, 91338-1, 1987-08, FEPR, 2823-3, 94837- 9, 2276-4, 2284-8, 2131-9, 84355-9, 02191-4, 47383-3, 5130-0, 37956-6, 80109-6, 22991-6 #### [facility] ([id number]) [address] [place] [address], [address] [place] [address] KEVIN IgM 1.5 MPL Normal 0-19.9 [facility] Comment on above: Performed By: #### C SHAAN, 11548-5, 1987-08, FEPR, 2823-3, 66359- 9, 2276-4, 2284-8, 2132-9, 76402-1, 39632-5, 53760-7, 5130-0, 57755-1, 95184-2, 20858-4 #### [facility] ([id number]) [facility], [address] [place] [address] Anti cardiolipin AB IgG IgA IgMon 06-10-2023 Cardiolipin IgA IA Qn (S) [facility] Cardiolipin IgG IA Qn (S) [facility] Cardiolipin IgM IA Qn (S) 1.5 [facility] Antinuclear AB, HE-p Kalpesha osmani, (JUSTICE by IFA)on 06-10-2023 JUSTICE Pattern: Speckled Normal [facility] Comment on above: Result Comment: NOTE Test Performed by: [facility] [place][Note 2] [address] [place] [address] Software Applications Designer: Satnam Cerna M.D. Ph.D.; CLIA# [id number] Performed By: #### C SHAAN, 81503-6, 1987-08, FEPR, 2823-3, 35427-9, 6-4, 2283-8, 2131-9, 41760-4, 49984-7, 48836-2, 5130-0, 61428-8, 18530-6, 16664-3 #### [facility] ([id number]) [address] [place] [address], [address] [place] [address] JUSTICE Titer: 1:160 Normal [facility] Comment on above: Performed By: #### Magui GARDUNO, 74548-0, 1987-08, FEPR, 2823-3, - 9, 2275-4, 2283-8, 2131-9, 37557-6, 82145-0, 27120-1, 5130-0, 13824-8, 67445-3, 64981-7 #### [facility] ([id number]) [address] [place] [address], [address] [place] [address] Antinuclear Ab, HEp-2 Substrate, S Positive Abnormal <1:80 (Negative) [facility] Comment on above: Result Comment: NOTE ADDITIONAL INFORMATION Method: Immunofluorescence using HEp-2 cellular substrate. Performed By: #### Magui GARDUNO, 43772-5, 1987-08, FEPR, 2823-3, 07759-2, 2276-4, 2284-8, 2-9, 57090-0, 60729-1, 91789-9, 5130-0, 92373-2, 21241-6, 95921-9 #### [facility] ([id number]) [address], [address] [place] [address] BETA-2 GP1 AB PANELon 2023 BETA-2 GP1 IgA <2.0 Normal 0.0-19.9 [facility] Comment on above: Performed By: #### C BCA, 69777-2, 1987-08, FEPR, 3-3, - 9, 2275-4, 2283-8, 2131-9, 24487-2, 70903-3, 75359-8, 5130-0, 78122-9, 78169-1, 92263-0 #### [facility] ([id number]) [address], [address] [place] [address] BETA-2 GP1 IgG <1.4 Normal 0.0-19.9 [facility] Comment on above: Performed By: #### C BCA, 32526-6, 1987-08, FEPR, 2823-3, - 9, 6-4, 2283-8, 2131-9, 90223-4, 68923-1, 11158-7, 5130-0, 92089-8, 35913-7, 59569-6 #### [facility] ([id number]) [address], [address] [place] [address] BETA-2 GP1 IgM 1.7 u/mL Normal 0.0-19.9 [facility] Comment on above: Performed By: #### C BCA, 88674-3, 1987-08, FEPR, 2823-3, 35497- 9, 2276-4, 2284-8, 2131-9, 90287-7, 90418-3, 33695-9, 5130-0, 63921-8, 17747-6, #### [facility] ([id number]) [address] [place] [address], [address] [place] [address] Beta-2 glycoprotein antibodi eson 06-10-2023 Beta 2 glycoprotein 1 IgA IA Qn u/mL 0.0 - 19.9 u/mL [facility] Beta 2 glycoprotein 1 IgG IA Qn u/mL 0.0 - 19.9 u/mL [facility] Beta 2 glycoprotein 1 IgM IA Qn 1.7 u/mL 0.0 - 19.9 u/mL [facility] CCL GENERIC ORDERon 06-10-19 TEST NAME LAURA WANG Normal [facility] Comment on above: Performed By: #### Magui GARDUNO, 08020-5, 1987-08, FEPR, 2823-3, 55652- 9, 2276-4, 2284-8, 2132-9, 76503-5, 19148-3, 28076-4, 5130-0, 04306-4, 41166-5, #### [facility] ([id number]) [address] [place] [address], [address] [place] [address] TEST RESULT See Below Normal [facility] Comment on above: Result Comment: NOTE TEST RESULT FLAG UNIT REF.RANGE ------ Crithidia lucillae Negative Negative Crithidia luciliae assay is used as an aid in diagnosis of systemic lupus erythematosus (SLE). A negative result cannot rule out SLE. Low positive titers may be seen with other systemic autoimmune diseases. Clinical correlation is required. CRITHIDIA LUCILIAE Test Performed By: [facility] [address] [place] [address] Associate Financial Analyst: Chaim Del Rio III, M.D. CLIA #[id number] Performed By: #### Magui GARDUNO, 59709-9, 1987-08, FEPR, 2823-3, 04947-4, 2276-4, 2284-8, 2132-9, 62857-1, 58485-1, 80701-3, 5130-0, 72283-9, 51013-6, 02776-3 #### [facility] ([id number]) [address] [facility], [address] [place] [address] COMPLEMENT PROFILEon 024 COMPLEMENT C3 173 mg/dL Normal 86-184 [facility] Comment on above: Performed By: #### C BCA, 29853-6, 1987-08, FEPR, 2823-3, 38912- 9, 2276-4, 2284-8, 2131-9, 68031-4, 97264-6, 43864-7, 5130-0, 06081-9, 58879-1, 87646-0 #### [facility] ([id number]) [address] [facility], [address] [place] [address] COMPLEMENT C4 39 mg/dL Normal 16-47 [facility] Comment on above: Performed By: #### C SHAAN, 49148-9, 1987-08, FEPR, 2823-3, 56472- 9, 2276-4, 2284-8, 2131-9, 10111-2, 36164-6, 73103-0, 5130-0, 56577-6, 94780-5, 23507-2 #### [facility] ([id number]) [address] [facility], [address] [place] [address] Complement profile (C3 AND C 4)on 06-10-2023 Complement C3 [Mass/Vol] 173 mg/dL 86 - 184 mg/dL [facility] Complement C4 [Mass/Vol] 39 mg/dL 16 - 47 mg/dL [facility] VICKY PANELon 06-10-2023 ANTI-QUINTERO AB IGG <0.2 Normal <1.0 [facility] Comment on above: Performed By: #### C SHAAN, 31738-4, 1987-08, FEPR, 2823-3, 73894- 9, 2276-4, 2284-8, 213-9, 60971-1, 54392-0, 38815-5, 5130-0, 52197-7, 36310-7, 15544-5 #### [facility] ([id number]) [address] [facility] [facility], [address] [place] [address] JO1 ANTIBODY <0.2 Normal <1.0 [facility] Comment on above: Performed By: #### C BCA, 80292-7, 1987-08, FEPR, 2823-3, - 9, 6-4, 2283-8, 2131-9, 21392-5, 30688-6, 23048-4, 5130-0, 83441-5, 30506-7, 04965-0 #### [facility] ([id number]) [facility], [address] [place] [address] [employer] ANTIBODY IGG 0.6 AI Normal <1.0 [facility] Comment on above: Performed By: #### C BCA, 53673-7, 1987-08, FEPR, 2823-3, - 9, 6-4, 2283-8, 2131-9, 62142-4, 67281-7, 11717-1, 5130-0, 11599-8, 60199-1, 10177-7 #### [facility] ([id number]) [address] [facility], [address] [place] [address] SCL 70 ANTIBODY <0.2 Normal <1.0 [facility] Comment on above: Performed By: #### C BCA, 08569-7, 1987-08, FEPR, 2823-3, - 9, 2276-4, 2283-8, 2131-9, 02643-4, 27577-8, 02285-9, 5130-0, 65111-9, 05757-9, 07100-2 #### [facility] ([id number]) [address] [facility], [address] [place] [address] SSA ANTIBODY <0.2 Normal <1.0 [facility] Comment on above: Performed By: #### C SHAAN, 51375-3, 1987-08, FEPR, 2823-3, 77009- 9, 2276-4, 2284-8, 213-9, 15060-8, 05754-0, 73723-4, 5130-0, 04063-5, 19638-9, 01268-2 #### [facility] ([id number]) [address] [facility], [address] [place] [address] SSB ANTIBODY <0.2 Normal <1.0 [facility] Comment on above: Performed By: #### C SHAAN, 40149-5, 1987-08, FEPR, 3-3, - 9, 6-4, 2283-8, 2131-9, 65618-7, 60310-4, 94820-6, 5130-0, 87260-4, 62076-9, 08433-7 #### [facility] ([id number]) [address] [place] [address], [address] [place] [address] VICKY Panelon 06-10-2023 Anileridine Ql (U) [facility] Ribonucleoprotein extractable nuclear IgG Qn (S) 0.6 [facility] SCL-70 extractable nuclear Ab Ql (S) [facility] Sjogrens syndrome-A extractable nuclear Ab Qn (S) [facility] Sjogrens syndrome-B extractable nuclear IgG Qn (S) [facility] Quintero extractable nuclear IgG Qn (S) [facility] Laboratory comment Jack (Repo rt)on 06-10-2023 [facility] UNLISTED LAB TEST Sent to reference lab [facility] Comment on above: Performed By: #### C SHAAN, 88801-6, 1987-08, FEPR, 2823-3, 43745- 9, 2276-4, 2284-8, 2132-9, 92902-6, 53056-6, 17114-2, 5130-0, 00679-8, 85026-5, 28787-2 #### [facility] ([id number]) [address] [facility], [address] [place] [address] No Panel Informationon 06-10 [facility] THYROGLOBULIN ABon 4 Thyroglobulin Ab Qn [IU]/mL Normal <4.0 [facility] Comment on above: Performed By: #### C SHAAN, 49674-4, 1987-08, FEPR, 2823-3, 07419- 9, 2276-4, 2284-8, 2131-9, 47007-5, 87379-6, 79251-6, 5130-0, 89846-1, 54917-7, 21006-1 #### [facility] ([id number]) [address] [facility], [address] [place] [address] THYROPEROXIDASE ABon 024 TPO Ab Qn [IU]/mL Normal <10 [facility] Comment on above: Performed By: #### C SHAAN, 45221-8, 1987-08, FEPR, 2823-3, 16496- 9, 2276-4, 2284-8, 2132-9, 73900-3, 42284-9, 71963-3, 5130-0, 80776-5, 78432-8, 18580-2 #### [facility] ([id number]) [address] [facility], [address] [place] [address] TPO Ab Qnon 06-10-2023 [facility] Thyroglobulin Abon 4 Thyroglobulin Ab Qn [facility] Thyroglobulin Ab Qnon 2023 [facility] Thyroid peroxidase antibodyo n 06-10-2023 TPO Ab Qn [facility] Unlisted Lab Test ds-dna ant ibody by manuel (IFA)on 06-10-2023 Laboratory comment Jack (Report) Sent to reference lab [facility] JUSTICE Screen w/ Reflexon 05-25 Nuclear Ab IA Ql (S) Positive Abnormal Negativ e^Neg ative [facility] Comment on above: Testing performed using multiplex flow immunoassay. Eleven different antigens associated with systemic autoimmune diseases (dsDNA,Sm,Sm/MARINE WATER TENDER,MARINE WATER TENDER,Chromatin, SSA,SSB,Rosi-1,Scl70,Ribo P,Centromere B) are included in this screening test. Aldosterone [Mass/Vol]on ALDOSTERONE 10.3 ng/dL Normal [facility] Comment on above: Result Comment: NOTE INTERPRETIVE INFORMATION: Aldosterone, Serum Reference intervals for age 15 and older: Upright ......... 4.0 - 31.0 ng/dL Supine .......... Less than or equal to 16.0 ng/dL Unspecified ..... Less than or equal to 31.0 ng/dL Normal serum levels of aldosterone are dependent on the sodium intake and whether the patient is upright or supine. High sodium intake will tend to suppress serum aldosterone, whereas low sodium intake will elevate serum aldosterone. The reference intervals for serum aldosterone are based on normal sodium intake. Access complete set of age- and/or gender-specific reference intervals for this test in the [facility] Test Directory (Foxtrot). Performed By: [facility] [address] [place] [address] Associate Financial Analyst: Lewis Bradford MD, PhD CLIA Number: [id number] C-reactive proteinon 024 CRP [Mass/Vol] 0.6 mg/dL 0.000 - 0.744 mg/dL [facility] CBC AND AUTO DIFFon 05-25-19 24 ABSOLUTE BASOPHIL 0.1 X10E9/L Normal 0.0-0.2 [facility] Comment on above: Performed By: #### C BCA, 60254-7, 1987-5, FEPR, 2823-3, 87410- 9, 2276-4, 2284-8, 2132-9, 28522-2, 39237-2, 84900-4, 5130-0, 55587-3, 90139-9, 80561-6 #### [facility] ([id number]) [address], [address] [place] [address] ABSOLUTE NEUTROPHIL 5.0 X10E9/L Normal 1.5-6.6 [facility] Comment on above: Performed By: #### C SHAAN, 91863-8, 1987-08, FEPR, 2823-3, 41860- 9, 2276-4, 2283-8, 2131-9, 31952-4, 67970-5, 39957-8, 5130-0, 93061-8, 63467-6, 46677-7 #### [facility] ([id number]) [address] [facility] [facility], [address] [place] [address] Basophils/100 WBC (Bld) 0.6 % Normal [facility] Comment on above: Performed By: #### C SHAAN, 34615-5, 1987-08, FEPR, 2823-3, - 9, 6-4, 4-8, 2131-9, 32429-0, 28693-1, 63488-8, 5130-0, 60744-0, 05940-4, 48966-3 #### [facility] ([id number]) [address], [address] [place] [address] Eosinophils (Bld) [#/Vol] 0.1 10*3/uL Normal 0.0-0.4 [facility] Comment on above: Performed By: #### C SHAAN, 79562-7, 1987-08, FEPR, 2823-3, 11794- 9, 2276-4, 2284-8, 2131-9, 16948-1, 64837-3, 35590-9, 5130-0, 54290-5, 48625-3, 91849-5 #### [facility] ([id number]) [address] [facility] [facility], [address] [place] [address] Eosinophils/100 WBC (Bld) 1.4 % Normal [facility] Comment on above: Performed By: #### C BCA, 91771-5, 1987-08, FEPR, 2823-3, 18510- 9, 2276-4, 2284-8, 2131-9, 82745-2, 33020-1, 33354-8, 5130-0, 94310-5, 21876-1, 25305-2 #### [facility] ([id number]) [address], [address] [place] [address] Erythrocyte distribution width (RBC) [Ratio] 12.6 % Normal 11.5-15.0 [facility] Comment on above: Performed By: #### C SHAAN, 79953-8, 1987-08, FEPR, 2823-3, - 9, 6-4, 2283-8, 2131-9, 51199-5, 62972-0, 83841-2, 5130-0, 49274-0, 27496-2, 12324-2 #### [facility] ([id number]) [address], [address] [place] [address] Hematocrit (Bld) [Volume fraction] 38.4 % Normal 35-47 [facility] Comment on above: Performed By: #### C SHAAN, 42056-3, 1987-08, FEPR, 2823-3, 11467- 9, 6-4, 2283-8, 2131-9, 13789-7, 47201-9, 62945-5, 5130-0, 80116-1, 50657-7, 57911-0 #### [facility] ([id number]) [address], [address] [place] [address] Hemoglobin (Bld) [Mass/Vol] 13.2 g/dL Normal 11.7-15.5 [facility] Comment on above: Performed By: #### C BCA, 61168-3, 1987-08, FEPR, 2823-3, 13590- 9, 6-4, 2283-8, 2132-9, 08846-1, 30516-4, 48572-6, 5130-0, 12758-0, 44242-2, 00075-1 #### [facility] ([id number]) [address], [address] [place] [address] Lymphocytes (Bld) [#/Vol] 3.7 10*3/uL High 1.0-3.5 [facility] Comment on above: Performed By: #### C BCA, 98161-6, 1987-08, FEPR, 2823-3, - 9, 6-4, 2283-8, 2131-9, 04981-8, 45275-9, 80502-2, 5130-0, 11827-2, 73936-7, 44382-2 #### [facility] ([id number]) [address] [facility], [address] [place] [address] Lymphocytes/100 WBC (Bld) 39.3 % Normal [facility] Comment on above: Performed By: #### C BCA, 41228-5, 1987-08, FEPR, 2823-3, - 9, 2275-4, 2283-8, 2131-9, 72500-4, 19632-8, 89152-1, 5130-0, 22399-8, 52962-4, 06230-6 #### [facility] ([id number]) [address], [address] [place] [address] MCH (RBC) [Entitic mass] 30.6 pg Normal 27-34 [facility] Comment on above: Performed By: #### C BCA, 46453-3, 1987-08, FEPR, 2823-3, - 9, 6-4, 2283-8, 2131-9, 89583-3, 90155-1, 29904-4, 5130-0, 76383-5, 77781-6, 51134-5 #### [facility] ([id number]) [address], [address] [place] [address] MCHC (RBC) [Mass/Vol] 34.3 g/dL Normal 32-36 [facility] Comment on above: Performed By: #### C SHAAN, 43814-8, 1987-08, FEPR, 2823-3, 30254- 9, 2276-4, 2284-8, 2132-9, 73787-8, 13516-4, 72049-3, 5130-0, 79952-7, 26369-0, 79913-5 #### [facility] ([id number]) [address], [address] [place] [address] MCV (RBC) [Entitic vol] 89 fL Normal 80-100 [facility] Comment on above: Performed By: #### C SHAAN, 20615-4, 1987-08, FEPR, 2823-3, 40967- 9, 2276-4, 2284-8, 2131-9, 59324-3, 40817-2, 83489-2, 5130-0, 33914-3, 56970-8, 05425-4 #### [facility] ([id number]) [address], [address] [place] [address] Monocytes (Bld) [#/Vol] 0.6 10*3/uL Normal 0-0.9 [facility] Comment on above: Performed By: #### C SHAAN, 93364-4, 1987-08, FEPR, 2823-3, 78979- 9, 2276-4, 2284-8, 2132-9, 25102-6, 98895-0, 52958-6, 5130-0, 01330-4, 55611-9, 60398-7 #### [facility] ([id number]) [address], [address] [place] [address] Monocytes/100 WBC (Bld) 6.2 % Normal [facility] Comment on above: Performed By: #### C SHAAN, 29512-8, 1987-08, FEPR, 2823-3, 98711- 9, 2276-4, 2284-8, 2132-9, 30302-4, 00952-9, 98593-0, 5130-0, 55608-6, 56716-8, 63707-9 #### [facility] ([id number]) [address], [address] [place] [address] Neutrophils/100 WBC (Bld) 52.5 % Normal [facility] Comment on above: Performed By: #### C BCA, 03702-1, 1987-08, FEPR, 2823-3, 76040- 9, 2276-4, 2284-8, 2131-9, 58007-3, 66333-3, 49047-0, 5130-0, 42726-1, 03515-0, 17338-1 #### [facility] ([id number]) [address], [address] [place] [address] Platelet mean volume (Bld) [Entitic vol] 7.0 fL Normal 7-12 [facility] Comment on above: Performed By: #### C SHAAN, 67607-7, 1987-08, FEPR, 2823-3, 13755- 9, 2276-4, 2284-8, 2131-9, 95283-9, 34296-9, 66373-2, 5130-0, 05562-1, 59311-7, 59273-0 #### [facility] ([id number]) [address], [address] [place] [address] Platelets (Bld) [#/Vol] 473 10*3/uL High 150-450 [facility] Comment on above: Performed By: #### C SHAAN, 42492-8, 1987-08, FEPR, 2823-3, 73998- 9, 2276-4, 2284-8, 2132-9, 92105-3, 35667-2, 31208-8, 5130-0, 27156-4, 58408-2, 90207-1 #### [facility] ([id number]) [address], [address] [place] [address] RBC COUNT 4.31 X10E12/L Normal 3.80-5.20 [facility] Comment on above: Performed By: #### C SHAAN, 81810-4, 1987-, FEPR, 2823-3, 33376- 9, 2276-4, 2284-8, 213-9, 17986-4, 93747-0, 54273-6, 5130-0, 75255-3, 97228-7, 36525-4 #### [facility] ([id number]) [address] [facility] [place] [address] WBC (Bld) [#/Vol] 9.4 10*3/uL Normal 4.0-11.0 [facility] Comment on above: Performed By: #### C SHAAN, 64704-5, 1987-08, FEPR, 2823-3, 17524- 9, 2276-4, 2284-8, 2-9, 56877-2, 55097-8, 03427-2, 5130-0, 62990-9, 17337-2, 27347-5 #### [facility] ([id number]) [address], [address] [place] [address] CBC auto differentialon 0 Basophils (Bld) [#/Vol] 0.1 10*3/uL [facility] Basophils/100 WBC (Bld) 0.6 % [facility] Eosinophils (Bld) [#/Vol] 0.1 10*3/uL [facility] Eosinophils/100 WBC (Bld) 1.4 % [facility] Erythrocyte distribution width (RBC) [Ratio] 12.6 % 11.5 - 15.0 % [facility] Hematocrit (Bld) [Volume fraction] 38.4 % 35 - 47 % [facility] Hemoglobin (Bld) [Mass/Vol] 13.2 g/dL 11.7 - 15.5 g/dL [facility] Interpretation and review of laboratory results Abnormal [facility] Lymphocytes (Bld) [#/Vol] 3.7 10*3/uL High [facility] Lymphocytes/100 WBC (Bld) 39.3 % [facility] MCH (RBC) [Entitic mass] 30.6 pg 27 - 34 pg [facility] MCHC (RBC) [Mass/Vol] 34.3 g/dL 32 - 36 g/dL [facility] MCV (RBC) [Entitic vol] 89 fL 80 - 100 fL [facility] Monocytes (Bld) [#/Vol] 0.6 10*3/uL [facility] Monocytes/100 WBC (Bld) 6.2 % [facility] Neutrophils (Bld) [#/Vol] 5.0 10*3/uL [facility] Neutrophils/100 WBC (Bld) 52.5 % [facility] Platelet mean volume (Bld) [Entitic vol] 7.0 fL 7 - 12 fL [facility] Platelets (Bld) [#/Vol] 473 10*3/uL High [facility] RBC (Bld) [#/Vol] 4.31 10*6/uL [facility] WBC corrected for nucl RBC Auto (Bld) [#/Vol] 9.4 [facility] CRP [Mass/Vol]on 05-25-2023 C REACTIVE PROTEIN 0.6 mg/dL Normal 0.000-0.744 [facility] Comment on above: Performed By: #### C BCA, 46402-5, 1988-5, FEPR, 2823-3, 02214- 9, 2276-4, 2284-8, 2132-9, 28245-8, 29837-9, 69173-0, 5130-0, 35513-3, 10214-7, 01795-3 #### [facility] ([id number]) [address] [facility] [place] [address] Chromatin Ab Qlon 05-25-2023 CHROMATIN AB IGG 0.3 AI Normal <1.0 [facility] Comment on above: Performed By: #### C BCA, 03789-6, 1987-08, FEPR, 2823-3, 75623- 9, 6-4, 2283-8, 2131-9, 05704-3, 29246-8, 17397-7, 5130-0, 25303-3, 61000-1, 39497-0 #### [facility] ([id number]) [facility], [address] [place] [address] Cobalamin (Vitamin B12) [Mas s/Vol]on 05-25-2023 Interpretation and review of laboratory results Abnormal [facility] DNA double strand Ab Qn (S)o n 05-25-2023 DOUBLE STRANDED DNA 14 IU/ML High <5 [facility] Comment on above: Result Comment: Interpretation-------- <5 Negative 5-9 Indeterminate >9 Positive Performed By: #### C BCA, 50510-0, 1987-08, FEPR, 2823-3, 86911-1, 2275-4, 2283-8, 9, 79141-8, 44769-1, 74800-6, 5130-0, 62476-9, 19140-5, 24141-7 #### [facility] ([id number]) [facility], [address] [place] [address] ESR Photometric method (Bld) [Velocity]on 05-25-2023 [facility] ESR, ERYTHROCYTE SEDIMENTATION RATE 18 mm/h Normal 0-20 [facility] Comment on above: Performed By: #### C BCA, 86619-3, 1987-08, FEPR, 2823-3, 25947- 9, 2276-4, 2284-8, 2131-9, 06371-5, 34880-8, 08752-2, 5130-0, 98633-5, 32368-8, #### [facility] ([id number]) [address] [facility], [address] [place] [address] Erythrocyte Sedimentation Ra te (ESR)on 05-25-2023 ESR Photometric method (Bld) [Velocity] 18 mm/h 0 - 20 mm/h [facility] FERRITINon 05-25-2023 Ferritin [Mass/Vol] 156 ng/mL Normal 11-307 [facility] Comment on above: Performed By: #### C BCA, 92702-5, 1987-08, FEPR, 2823-3, 12202- 9, 6-4, 2283-8, 2131-9, 61952-0, 66524-3, 30412-2, 5130-0, 20580-5, 09109-9, #### [facility] ([id number]) [facility], [address] [address] Ferritinon 05-25-2023 Ferritin [Mass/Vol] 156 ng/mL 11 - 307 ng/mL [facility] Folateon 05-25-2023 Folate [Mass/Vol] 7.7 ng/mL 5.8 - PINF ng/mL [facility] Comment on above: NEW REFERENCE RANGE Folate [Mass/Vol]on 05-25-19 24 [facility] FOLIC ACID 7.7 ng/mL Normal >5.8 [facility] Comment on above: Result Comment: NEW REFERENCE RANGE Performed By: #### C BCA, 40081-8, 1987-08, FEPR, 2823-3, 99267-1, 2276-4, 2283-8, 2131-9, 65234-1, 46768-7, 93338-8, 5130-0, 17919-0, 31334-4, #### [facility] ([id number]) [address] [facility], [address] [place] [address] IRON PROFILEon 05-25-2023 Iron [Mass/Vol] 65 ug/dL Normal 50-170 [facility] Comment on above: Performed By: #### C BCA, 84828-6, 1987-08, FEPR, 2823-3, 05030- 9, 2276-4, 2284-8, 2131-9, 09246-9, 63046-7, 01114-2, 5130-0, 30114-5, 72336-5, 83584-0 #### [facility] ([id number]) [address], [address] [place] [address] IRON BINDING 427 ug/dL High 250-425 [facility] Comment on above: Performed By: #### C BCA, 63853-1, 1987-08, FEPR, 2823-3, - 9, 6-4, 4-8, 2131-9, 67337-2, 79415-0, 24133-4, 5130-0, 28826-1, 37304-9, 76061-9 #### [facility] ([id number]) [address], [address] [place] [address] IRON SATURATION 15 % SATURATION Normal 15-50 [facility] Comment on above: Performed By: #### C SHAAN, 24074-4, 1987-08, FEPR, 2823-3, 33716- 9, 2276-4, 2284-8, 2-9, 69094-4, 77525-3, 45015-0, 5130-0, 24988-5, 77224-6, 75595-4 #### [facility] ([id number]) [address], [address] [place] [address] Intrinsic factor blocking Ab Ql (S)on 05-25-2023 IF BLOCKING AB See Below Normal [facility] Comment on above: Result Comment: NOTE TEST RESULT FLAG UNIT REF.RANGE ------ Intrinsic Factor Ab Negative Negative Performed By: [facility] [address] [place] [address] Associate Financial Analyst: Lewis Bradford MD, PhD CLIA Number: [id number] Performed By: #### C BCA, 13246-1, 1987-5, FEPR, 2823-3, 44041-9, 2276-4, 2284-8, 2132-9, 97240-0, 20579-1, 12169-3, 5130-0, 17428-3, 72419-0, 68433-7 #### [facility] ([id number]) [address] [place] [address], [address] [place] [address] Iron and TIBCon 05-25-2023 Interpretation and review of laboratory results Abnormal [facility] Iron [Mass/Vol] 65 ug/dL 50 - 170 ug/dL [facility] Iron binding capacity [Mass/Vol] 427 ug/dL High 250 - 425 ug/dL [facility] Iron saturation [Mass fraction] 15 [facility] JAK2 gene p.[id number] Molgen Ql (Bld/Tiss)on 05-25-2023 JAK2 V617F MUTATION, BLOOD SEE COMMENTS 05/27/2023 04:44 PM Normal [facility] Comment on above: Result Comment: NOTE Test Result Flag Unit RefValue -- JAK2 V617F Mutation Detection, B JAK2 Result see interpretation JAK2 V617F Mutation Detection, B See Note Peripheral blood, JAK2 V617F mutation analysis: Negative for JAK2 V617F. A negative [id number] test result does not exclude the possibility of a myeloproliferative neoplasm (MPN). If clinical suspicion is high for primary myelofibrosis (PMF) or essential thrombocythemia (ET), consider additional testing for CALR with reflex to MPL (test ID: MPNCM). If clinical suspicion is high for polycythemia vera, the test JAK2 Exon 12 and Other Non-V617F Mutational Detection (test ID: JAKXB or JAKXM) could be considered. Clinicopathologic correlation is recommended for a definitive diagnosis. Signing Pathologist: Jossy Young ADDITIONAL INFORMATION Method summary - JAK2 V617F analysis: Quantitative, allele-specific polymerase chain reaction (PCR) assay was performed using extracted genomic DNA to evaluate for the point mutation causing JAK2 V617F. The analytic sensitivity of this assay has been determined at 0.06% (see [facility] Interpretive Handbook for method details). This test was developed and its performance characteristics determined by [facility] in a manner consistent with CLIA requirements. This test has not been cleared or approved by the U.S. Food and Drug Administration. Test Performed by: [place] [address] Software Applications Designer: Satnam Cerna M.D. Ph.D.; CLIA# [id number] Performed By: #### C SHAAN, 37370-3, 1987-08, FEPR, 2823-3, 29733-1, 2276-4, 2284-8, 2132-9, 31180-4, 54642-4, 50956-8, 5130-0, 34924-9, 26047-7, 46567-5 #### [facility] ([id number]) [address] [place] [address], [address] [address] MAGNESIUMon 05-25-2023 Magnesium [Mass/Vol] 1.9 mg/dL Normal 1.8-2.6 [facility] Comment on above: Performed By: #### C BCA, 85123-0, 1987-08, FEPR, 2823-3, 32931- 9, 2276-4, 2284-8, 2132-9, 25391-4, 40969-4, 27825-7, 5130-0, 76983-0, 32926-2, 51236-2 #### [facility] ([id number]) [address] [place] [address], [address] [place] [address] Magnesiumon 05-25-2023 Magnesium [Mass/Vol] 1.9 mg/dL 1.8 - 2 .6 mg/dL [facility] No Panel Informationon 05-25 [facility] Nuclear Ab IA Ql (S)on 05-25 Interpretation and review of laboratory results Abnormal [facility] JUSTICE Screen w/reflex Positive Abnormal NEG [facility] Comment on above: Result Comment: Testing performed using multiplex flow immunoassay. Eleven different antigens associated with systemic autoimmune diseases (dsDNA,Sm,Sm/MARINE WATER TENDER,MARINE WATER TENDER,Chromatin, SSA,SSB,Rosi-1,Scl70,Ribo P,Centromere B) are included in this screening test. Performed By: #### C SHAAN, 94276-6, 1987-08, FEPR, 2823-3, 53979-8, 2276-4, 2284-8, 2131-9, 49131-1, 07400-3, 83261-8, 5130-0, 07297-1, 76755-1, 86035-0 #### [facility] ([id number]) [address] [facility], [address] [address] POTASSIUMon 05-25-2023 Potassium [Moles/Vol] 3.5 mmol/L Normal 3.5-5.0 [facility] Comment on above: Performed By: #### C SHAAN, 99799-9, 1987-08, FEPR, 2823-3, 85309- 9, 2276-4, 4-8, 2131-9, 40698-0, 24162-4, 49277-4, 5130-0, 33879-2, 69666-9, 84724-8 #### [facility] ([id number]) [facility], [facility] [address] [place] [address] Parietal cell IgG Qn (S)on 0 05-25-2023 PARIETAL CELL AB IGG See Below Normal [facility] Comment on above: Result Comment: NOTE TEST RESULT FLAG UNIT REF.RANGE ------ Gastric Parietal Cell IgG Qualitative Positive A Negative Anti-parietal cell antibody test is used as an aid in diagnosis of autoimmune gastritis. Clinical correlation is required. Gastric Parietal Cell IgG Quantitative 54.3 H Units <=20.0 Test Performed By: [place] [address] Associate Financial Analyst: Chaim Del Rio III, M.D. CLIA #[id number] Performed By: #### C BCA, 55630-3, 1987-5, FEPR, 2823-3, 44747-0, 2276-4, 2284-8, 2132-9, 49632-3, 41603-2, 66223-6, 5130-0, 57410-0, 65580-5, 44976-2 #### [facility] ([id number]) [address] [place] [address], [address] [place] [address] Potassiumon 05-25-2023 Potassium [Moles/Vol] 3.5 mmol/L 3.5 - 5.0 mmol/L [facility] RENIN ACTIVITYon 05-25-2023 RENIN ACTIVITY 0.5 ng/mL/hr Normal [facility] Comment on above: Result Comment: NOTE INTERPRETIVE INFORMATION: Renin Activity Adult, Normal sodium diet: Supine ................. 0.2-1.6 ng/mL/hr Upright ................ 0.5-4.0 ng/mL/hr Children, Normal sodium diet, Supine: (1-7 days) ..... 2.0-35.0 ng/mL/hr Cord blood ............. 4.0-32.0 ng/mL/hr 1-12 mos ............... 2.4-37.0 ng/mL/hr 13 mos-3 yrs ........... 1.7-11.2 ng/mL/hr 4-5 yrs ................ 1.0- 6.5 ng/mL/hr 6-10 yrs ............... 0.5- 5.9 ng/mL/hr 11-15 yrs .............. 0.5- 3.3 ng/mL/hr Children, normal sodium diet, Upright: 0-3 yrs ................ Not Available 4-5 yrs ................ Less than or equal to 15 ng/mL/hr 6-10 yrs ............... Less than or equal to 17 ng/mL/hr 11-15 yrs .............. Less than or equal to 16 ng/mL/hr Plasma renin activity measures enzyme ability to convert angiotensinogen to angiotensin I and is limited by the availability of angiotensinogen. Plasma renin activity is not an accurate indicator of enzyme activity when angiotensinogen is decreased. This test was developed and its performance characteristics determined by [facility]. It has not been cleared or approved by the [place] Food and Drug Administration. This test was performed in a CLIA certified laboratory and is intended for clinical purposes. Performed By: [facility] [address] [place] [address] Associate Financial Analyst: Lewis Bradford MD, PhD CLIA Number: [id number] Performed By: #### C BCA, 16415-9, 1988-5, FEPR, 2823-3, 73651-6, 2276-4, 2284-8, 2132-9, 49160-9, 21748-2, 53788-4, 5130-0, 65731-0, 86868-4, 01201-9 #### [facility] ([id number]) [address] [facility], [address] [place] [address] Ribonucleoprotein extractabl e nuclear IgG Qn (S)on 05-25-2023 [employer] ANTIBODY IGG 0.6 AI Normal <1.0 [facility] Comment on above: Performed By: #### C SHAAN, 26411-8, 1987-, FEPR, 2823-3, 25317- 9, 2276-4, 2284-8, 2131-9, 12776-1, 89738-9, 66858-2, 5130-0, 38719-0, 69736-2, 10668-5 #### [facility] ([id number]) [address], [address] [place] [address] Quintero extractable nuclear Ab +Ribonucleoprotein extractable nuclear IgG Qn (S)on 05-25-2023 QUINTERO/MARINE WATER TENDER AB IGG <0.2 Normal <1.0 [facility] Comment on above: Performed By: #### C SHAAN, 16580-1, 1987-08, FEPR, 282-3, - 9, 6-4, 2283-8, 2131-9, 86040-9, 32510-7, 30156-3, 5130-0, 14127-1, 53528-3, 31517-4 #### [facility] ([id number]) [address] [place] [address], [address] [place] [address] Quintero extractable nuclear Ig G Qn (S)on 05-25-2023 ANTI-QUINTERO AB IGG <0.2 Normal <1.0 [facility] Comment on above: Performed By: #### C SHAAN, 26531-9, 1985-08, FEPR, 2823-3, - 9, 2276-4, 2284-8, 2131-9, 18220-9, 09176-1, 19687-9, 5130-0, 71789-4, 17166-3, 26041-0 #### [facility] ([id number]) [address], [address] [place] [address] TTG AB IGA IGGon 05-25-2023 TTG AB IGA 1.7 U/mL Normal <4.0 (Negative) [facility] Comment on above: Performed By: #### C BCA, 54613-1, 1987-, FEPR, 2823-3, 23201- 9, 2276-4, 2284-8, 2131-9, 47279-7, 28401-2, 33033-5, 5130-0, 94122-1, 14747-1, 93961-5 #### [facility] ([id number]) [address] [place] [address] TTG AB IGG 2.7 U/mL Normal <6.0 (Negative) [facility] Comment on above: Result Comment: NOTE Test Performed by: [facility] [place][Note 2] [address] [place] [address] Software Applications Designer: Satnam Cerna M.D. Ph.D.; CLIA# [id number] Performed By: #### C BCA, 16573-7, 1987-08, FEPR, 2823-3, 27712-9, 6-4, 2283-8, 2131-9, 40328-1, 42813-4, 05093-4, 5130-0, 53759-3, 08424-7, 89046-5 #### [facility] ([id number]) [address] [place] [address] VITAMIN B12on 05-25-2023 Cobalamin (Vitamin B12) [Mass/Vol] 118 pg/mL Low 180-914 [facility] Comment on above: Performed By: #### C BCA, 49588-2, 1987-08, FEPR, 2823-3, 77771- 9, 2276-4, 2284-8, 2131-9, 21977-2, 17469-4, 39646-5, 5130-0, 23888-6, 59487-8, 07983-0 #### [facility] ([id number]) [address] [place] [address] Vitamin B12on 05-25-2023 Cobalamin (Vitamin B12) [Mass/Vol] 118 pg/mL Low 180 - 914 pg/mL [facility] Vitamin D 25 hydroxyon 05-25 Vitamin D+Metabolites [Mass/Vol] 9.9 ng/mL Low 30 - 100 ng/mL [facility] Comment on above: Vitamin D status 25 [place] Vitamin D Deficiency <20 ng/mL Insufficiency 20-29 ng/mL Sufficiency 30-100 ng/mL Toxicity >100 ng/mL NOTE: A pediatric reference range has not been established by the content director of this kit. The [place] [employer] recommends a Vitamin D level of = or >20ng/mL in infants and children. Vitamin D+Metabolites [Mass/ Vol]on 05-25-2023 Interpretation and review of laboratory results Abnormal [facility] VITAMIN D 25 HYD TOT 9.9 ng/mL Low 30-100 [facility] Comment on above: Result Comment: Vitamin D status 25 [place] Vitamin D Deficiency <20 ng/mL Insufficiency 20-29 ng/mL Sufficiency 30-100 ng/mL Toxicity >100 ng/mL NOTE: A pediatric reference range has not been established by the content director of this kit. The [place] [employer] recommends a Vitamin D level of = or >20ng/mL in infants and children. Performed By: #### C BCA, 32657-7, 1987-5, FEPR, 2823-3, 96048-6, 2276-4, 2284-8, 2132-9, 58276-1, 67699-9, 42500-4, 5130-0, 47138-1, 14456-4, 22632-0 #### [facility] ([id number]) [address], [address] [place] [address] CBC AND AUTO DIFFon 04-28-19 24 ABSOLUTE BASOPHIL 0.0 X10E9/L Normal 0.0-0.2 [facility] Comment on above: Performed By: #### F EPR, 2275-07, CBCA #### [facility] ([id number]) [address], [address] [place] [address] ABSOLUTE NEUTROPHIL 6.3 X10E9/L Normal 1.5-6.6 [facility] Comment on above: Performed By: #### F EPR, 2275-07, CBCA #### [facility] ([id number]) [address], [address] [place] [address] Basophils/100 WBC (Bld) 0.3 % Normal [facility] Comment on above: Performed By: #### F EPR, 2275-07, CBCA #### [facility] ([id number]) [address], [facility] [address] [place] [address] Eosinophils (Bld) [#/Vol] 0.2 10*3/uL Normal 0.0-0.4 [facility] Comment on above: Performed By: #### F EPR, 2275-07, CBCA #### [facility] ([id number]) [address], [address] [place] [address] Eosinophils/100 WBC (Bld) 2.0 % Normal [facility] Comment on above: Performed By: #### F EPR, 2275-07, CBCA #### [facility] ([id number]) [address], [address] [place] [address] Erythrocyte distribution width (RBC) [Ratio] 12.6 % Normal 11.5-15.0 [facility] Comment on above: Performed By: #### F EPR, 2275-07, CBCA #### [facility] ([id number]) [address], [address] [place] [address] Hematocrit (Bld) [Volume fraction] 41.9 % Normal 35-47 [facility] Comment on above: Performed By: #### F EPR, 2275-07, CBCA #### [facility] ([id number]) [address] [address] [place] [address] Hemoglobin (Bld) [Mass/Vol] 14.2 g/dL Normal 11.7-15.5 [facility] Comment on above: Performed By: #### F EPR, 2275-07, CBCA #### [facility] ([id number]) [address], [address] [address] Lymphocytes (Bld) [#/Vol] 3.9 10*3/uL High 1.0-3.5 [facility] Comment on above: Performed By: #### F EPR, 2275-07, CBCA #### [facility] ([id number]) [address] [address] [place] [address] Lymphocytes/100 WBC (Bld) 34.7 % Normal [facility] Comment on above: Performed By: #### F EPR, 2275-07, CBCA #### [facility] ([id number]) [address] [address] [place] [address] MCH (RBC) [Entitic mass] 30.5 pg Normal 27-34 [facility] Comment on above: Performed By: #### F EPR, 2275-07, CBCA #### [facility] ([id number]) [address] [address] [place] [address] MCHC (RBC) [Mass/Vol] 33.8 g/dL Normal 32-36 [facility] Comment on above: Performed By: #### F EPR, 2275-07, CBCA #### [facility] ([id number]) [address] [address] [place] [address] MCV (RBC) [Entitic vol] 90 fL Normal 80-100 [facility] Comment on above: Performed By: #### F EPR, 2275-07, CBCA #### [facility] ([id number]) [address], [address] [place] [address] Monocytes (Bld) [#/Vol] 0.7 10*3/uL Normal 0-0.9 [facility] Comment on above: Performed By: #### F EPR, 6-4, CBCA #### [facility] ([id number]) [address], [address] [place] [address] Monocytes/100 WBC (Bld) 6.6 % Normal [facility] Comment on above: Performed By: #### F EPR, 2275-4, CBCA #### [facility] ([id number]) [address], [facility] [address] [place] [address] Neutrophils/100 WBC (Bld) 56.4 % Normal [facility] Comment on above: Performed By: #### F EPR, 2275-, CBCA #### [facility] ([id number]) [address], [address] [place] [address] Platelet mean volume (Bld) [Entitic vol] 7.0 fL Normal 7-12 [facility] Comment on above: Performed By: #### F EPR, 2275-, CBCA #### [facility] ([id number]) [address], [facility] [address] [place] [address] Platelets (Bld) [#/Vol] 545 10*3/uL High 150-450 [facility] Comment on above: Performed By: #### F EPR, 2275-4, CBCA #### [facility] ([id number]) [address], [address] [place] [address] RBC COUNT 4.65 X10E12/L Normal 3.80-5.20 [facility] Comment on above: Performed By: #### F EPR, 2275-, CBCA #### [facility] ([id number]) [address], [address] [place] [address] WBC (Bld) [#/Vol] 11.3 10*3/uL High 4.0-11.0 [facility] Comment on above: Performed By: #### F EPR, 2276-4, CBCA #### [facility] ([id number]) [address], [address] [place] [address] FERRITINon 04-28-2023 Ferritin [Mass/Vol] 160 ng/mL Normal 11-307 [facility] Comment on above: Performed By: #### F EPR, 6-4, CBCA #### [facility] ([id number]) [address], [address] [place] [address] IRON PROFILEon 04-28-2023 Iron [Mass/Vol] 84 ug/dL Normal 50-170 [facility] Comment on above: Performed By: #### F EPR, 2275-4, CBCA #### [facility] ([id number]) [address], [address] [place] [address] IRON BINDING 475 ug/dL High 250-425 [facility] Comment on above: Performed By: #### F EPR, 2276-4, CBCA #### [facility] ([id number]) [address], [address] [place] [address] IRON SATURATION 18 % SATURATION Normal 15-50 [facility] Comment on above: Performed By: #### F EPR, 2276-4, CBCA #### [facility] ([id number]) [address], [address] [place] [address] Coding Summaryon 03-15-2023 Coding Summary HTMLBase 64 WgagnuimYEn3sRt+PGhlYW Q+AK1FPOQaL88ojOQriM3u P8IIGBsHHinfEEHTKEtBYx WwjqOvSY6vaCFgFRPi IC8+EL1fEVDzClerbMFtc4 Z3xFJ5K71gns1iMAshrCC6 BIPpLnDqvkjyi8ytxJu5MW cuNmluOyBt UGOlhG37KBF4oS98Jh36yJ MgbCCjl4kqkEb0ZwDjQVVq NWN2pQfqJPufu4NgHCXlR8 6qgVCzl5Y8 HGJjkWxriMHuElOcyUH1gF 1eMGdrueuqo2tthjqkKyu5 kz42bZEjx4B1kZO5N5Zqne M4ZRHrfTTa JmrxqAIJqW8trwwgx9skdz gyDtGoJDEtHRz1EGk0RZZk tLhiTiGvWJ77EDN0TELcoy JwL2QnRCFm fFslHaF1g6J2My0FO1QFZv rxQ4CBUPFHNXogbOU+PC90 dz95A7HfPhdoMku1GPPnAQ E3jBR5cX1u RALbTVoki3M3mGE4L7Wxbl Gtqr5qv1dhUACrVArnQ32z lPWau3O5EVLyxMO4AJPmcV wzPvQckF70 Oyc+PEPeiYbtb2ShYpgij7 aom6gsrXy4UfxlIAYtfpFa xPifPML9a8EkYj2vGWHadI D8oLT6eM1f BiAjLnT1ENjqU840NfWksX XjZdsxZ50bZ0DjgYO+PHRy Ncz1IWHyoJxkNZ2xD0RmRH RpbmctbGVm bIfcEU5mNUWzoeycWGRsnJ 7nDFIlQ2t7LuVtMaZ4RHol N4RcYZKfjiwsFi09iD2vIy AnYyI1WRnb C3OkcmQ6VOGveYToMLshLT L9N79qt3Q9DTHdMZFbNMM0 aKD9sS6ifSodrsakqBFujJ sgdmVydGlj KRovPIseT554ZQWenKnrEy NvZGluZyBEYXRlOiAgMTEv MjcvMjAyMzwvdGQ+PHRkIH R0lVpeZNRb oJNxMIwsHg1luRoigAbeZT 2lPIDifdtrXCKpcZ8pHFCz iVWzzPkcBT1jPEOhncgoq8 31LuPoUQF1 CAVpeQBrV5GidB2lXrMcBM RkJWNrF0WgxXNsPRsdP844 OGvaBdA5XFAhcaKgD9IyGB FsaWduOiB0 q9D7Hb0Bm7NegddcP3FguJ MqVgPoLabwFRq8T0JsCrwg dHI+BN95TKNaJR29GZo5VN U4hNsfLWvk KAZaQ4EtnO0cPqLiEQXtWQ RkOyc+PHRhYmxlIHdpZHRo MKwlLNFkStXwxJkpBW6cNy 9yZGVyLWNv nLggiXSxCeCcc2rbUMRoLL peXX0lbQlrR1NgfWR7EOKp f5f1Uc58O46bW0UvxRB+PG OrrTN0rCK2 fR6wYwGiJiW3SLjvW820Sw VviMHtNxmrr6niq7ipwDo1 GbT4DWZvyuMdyJyhGPJ1n6 BqDm82C47f IHdpZHRoPSIxNSUiIHZhbG qljf6jaU3fRd7+PGNvbCB3 dQZ1oF9zXeQsKkB4AYdvG3 49InRvcCIv Lmktb1frl8nchLy6SbDfMM HebkDdfTdqDEE2t8IxBf31 X2DjyMkpd4TbSzi0do25xB Fss5X5nCG0 Q5MqHWPzmbltnOSefDabVQ 2xLHRewfmhJUGdoZ5wFWNw V3x8BrYtKpJ9FPmgS9Yqbh R5WGDvmJNe RTMxfZIAaV5jfjynf9puei mnTkFkPAXaAEb0ELs5GGFs hSiuPbRoKPI2MxH2OYT9fL LiuT7ixMej dofasX3mIfc+GHF8pCLjsX APIC3pXslioIV+PHRkIHN0 tSyiDAczZAAbvL0aQFUkL4 y5IdZyPtO7 HAazE3UgimS5HCXdiMHbUF JyqYURyR9rhnylx5bhtleo KeBlAFVmDFr1XBv7YQKfsW duOiBsZWZ0 XzH2OHV9tPNdfW5ayWbsre vhxR6kAds+QmlydGggRGF0 JJt0L4MbPmt9WNWprHmuAB 0ncGFkZGlu Kb1slPlspVeeLI1aYIGajn yve569EhNcz2fwDLPiyKCj EUudCQO6C45bq0B7ZZAlGD YyBGS7qHH5 iL1bgSnqrdzibUCloUtcuj SevGzxGGqsYTaiK756ABRp pXlhYnGvBNm6K5FhNgb0YC CneUooFF9i fMUqBPmlHu7bfZkhiWmbAT 9mKVWrdhzva098CuXjk3jk VLRebAYxHAriHBA8O85mw9 T8FRZbONOa ZUQ4lJT5tF2zrVtkrikgfH VmdDsgdmVydGljYWwtYWxp R265IXRgmDzxRtYcgAc9P7 XzEzm5NSUw nScrFV2dyWMsQKipQu2gyH mgiTayVP3jRRRrhdvzb764 OwYwa3xaHIPuxMTsAHfyMS D4Z12nn3F2 DOHeNTOoKRJ9tWQ7aR2yuA lnbjogbGVmdDsgdmVydGlj XZggXPmeD401TKRqkLfyGc BhdGllbnQg TLnhUVz4Q7FzAytzyBM+PC 29XMYjUG84pMRnpKLyk6wp wFa8XoBbWUHfXPT9kZraVT hax6RfUEWj V67bjVZws5V2FOMllDxmtD BgQuAtrMQ3eC6yYAjpeasu h6zpoxujOxwla4ijmc29fU 01H38wBFqb ZHRoPSIzMCUiIHZhbGlnbj 7hyT0pGs3+GTItsQO6gFW5 hU9lRXMeNdD5DHeiN739Ul RvcCIvPjxj w6pgi8bzwOw0GnB3SBNeoc PbhCikCXO3t8TmBm62F74w IHdpZHRoPSIyMCUiIHZhbG yaop1raQ8i Ii8+QMLwxDY1hHU8dC9qHy ZmPgF4FFxfN494RzNpbAWs GhvoN56nP8PjlEM+PHRyPj x1AZAbiVnl DB6qxOJkCFbaUr5kPDO1Dl JnPnYjEOimC1CrEHAqlupq iekgrEO0TYShPSBsvO62Kq 9udDogMTBw nDBOqR5jvswwd9pnvhckSy YfRQFvCEs3RJq8LTWfwBwl MqOmOQW3EtP1MNR9mBDyiA 1hbGlnbjog kT0uM9TuKSKshaimTb19uQ 3tGzYqNgC1YMchVhn+V1VF DqASQfmtGJYYC5BSFOFLAK PDK0WUIwF4 W1JdFhy0TEMuwSwgTP5nrQ StBKdyGk5jiXeyoQfwNH5j UMTdytfsFRRzdR2sSIHcpC BqqGpyJC3z XYJfdjsjd905IhQoSWN7LO VcyRAxY6YsjB6dTzYqJFGk FEAeB8KvfKOqTGnzC581QO qgZeP5WZSl jhMzB8BmCXNuiLkaIqS1l6 G7Je4nQx3xCo2sWIr5OZ78 PT60hESrs2S6vRD7B6IaHW Rpbmctcmln uFU1IVPoMNYzzE24dBExPS cfWr7kc5O1v629JMSdFLLn dL07Nu0cpJpvUWGobWDRzK 5azrqfp2te lhnrBxPhGWPbIGm8BBt0VW WfgBfhSxEkZYK2LiD9GLP8 yJQumD6hvYrnzmvhsA2mXk c+MjUgWWVh umG9F2RwOns4BXWtxQytQQ 0ieFBjIRlvPj8qjQzhhQty YE7wHRRosfruTKTyuS8oOW JvdHRvbTog II7kOBYykgfne903OpOcYZ P2BWQdwQVqK2LzeB1tPvAr ZNMkBZOmW4XeiQGmTKkyD9 59QQaxTvX5 XRJxbnGwK0WvIDYfzXybYz O5q1E5Sg7FMW6MDLJ6S7Bf Igx4IUZmdMouGS6vxPCdKF qoKu3fkZwv tLkkOX9nQWIupwnsONRgyE 6gUKNagNTltJwbKJ7xPARw zbfjh424FpSnTEO9BOAneG ZyW2JalJ2l PhLsIADmAMMqF5TqnJKfUO zqQ952ELoeNiS3UYOvquRc L2DvLHUoxNkmQnI7s0B2Xl 9AsCThM3Fk Z4b0V9UfGroveTN+PC90YW MoSP30vVDosYZxa9yngTi9 KrWmZHFiRLD6eYvoWWxbq4 VeMDImZ68d mMKij2F0VHOnjSoepZMqMl SfbKT7mK1nTXsrvmzud2jz liqmJiumx2bgxv13tI43U8 9sIHdpZHRo JBUsCMZxCFNfwYiewn7fiQ 9wIi8+WKLthJS5dFE6hS4u DzGpWcB3HVqgP971KdIeiX YxUijup9pc j9jggYk7RgUlACJzdqXsqK mpDSK6s2TcCb59A29lOFzk ZHRoPSIyMCUiIHZhbGlnbj 3heK4iHf9+ YV2ni3rtbb85aT57aAQ+PH XwBQP3hEdmMKuoYRIlrE1d OTxmVxE2TINaQyEoaU11vA ChFQmqYm0a lTeokFkvMQ4rFYLkkjkop3 57AyVad7gbJCEvfIHlFBvc LON0A99re8I8KKKqDHStDE F1cTT8hE7o bGlnbjogbGVmdDsgdmVydG xiQLtsUXsrH511ZTRfvYwh OnCbpYWcM4dyeiDPBL1kRc wvdGQ+PHRk AFO2oTodBRbaTYAzhN4nGO LfS6w7AuIvArV2UMfpK9Rm rgB0ALNgoFUcIHQgfUTPtH 5aspbch7cz fsrzMpJrYICzNMk2NEo1EY UjaImeLvZeNTS9RjT6FTB3 gZGqjS7vsOeaoxvhvO8nSq c+RklOOjwv dGQ+ZLEbCCD6fSyeNDabHG TzeG0sQRElU2c7SjIrAuB8 RNvrU6ByziO4QMYccUTvUF DlvONVgH8r evipx0jygyrdKsHsNMZoWC y2TZh3CERxxZflYtEwXYT4 KlM2QNE7sNWxsR2gqErvdq nvdI2nFup+ TVJOOjwvdGQ+NFQyXSF5mS tcPSbwGAZybU3mIWNnD0b5 DlIpSeD4MPxmO0PvzlG6KH JvbGQgMTBw jNCNzJ0udqakt6sxgoboUn SjTWJoUUd9QRx6RVShvIqx PiCsWXE4DvF6RGE0pIUpgO 1hbGlnbjog iN7dFqn+FDI5JIN6VZ17KX 71C5RgVhsauTFjiKF+PHRh YmxlIHdpZHRoPScxMDAlJy FnzHlvKB3s Ym9 (more content not included)... [facility] Consent Formson 03-10-2023 Consent Forms [id number] TGTIFF [facility] ED Clinical Summaryon 2022 ED Clinical Summary [facility] - Emergency Department [address] [place] [id number] ED Clinical Summary PERSON INFORMATION Name: JANNETTE WONG Age: 27 Years Sex: FEMALE : 1995 MRN: Acct#: Visit Reason: Foot pain-swelling; RIGHT FOOT PAIN Arrival: 03/09/2023 21:15:57 Discharge: 03/09/2023 22:39:00 LOS: 000 01:24 Check In: 03/09/2023 21:15:57 Checkout:03/09/2023 22:39:00 Address: [address] [place] [id number] PCP: Juliana Thorne PROVIDER INFORMATION Provider Role Assigned Unassigned Jorge DUMONT, Viridiana Oleary ED Nurse 03/09/2023 21:18:14 Paddy Figueroa DO ED Provider 03/09/2023 21:24:24 VITALS INFORMATION Vital Sign Triage Latest Temperature Tympanic 36.2 DegC 36.2 DegC Temperature Temporal Artery Pulse Rate 99 bpm 99 bpm O2 Sat 96 % 96 % Respiratory Rate 16 br/min 16 br/min Blood Pressure /86 mmHg /86 mmHg MEDICAL INFORMATION Medications Given: Medication Dose Route acetaminophen-hydrocod one (THP #1 Tab acetaminophen-hydrocod one 325 mg-5 mg) 1 packet(s) PO acetaminophen-hydrocod one (acetaminophen-hydroco done 325 mg-5 mg oral tablet) 1 tab(s) PO Allergy Information: codeine PHYSICIAN DOCUMENTATION DISCHARGE INFORMATION: Discharge Disposition: Home Discharge Location: Home PATIENT EDUCATION INFORMATION Instructions: Toe Fracture Follow-Up: With: Address: When: PADDY [address] [address] Business (1) Within 2 to 4 days Comments: Call for follow up appointment Return if symptoms worsen DIAGNOSIS: Toe fracture, right Patient Understands: Yes - Patient/family/caregiv er verbalizes understanding of instructions given Comment: [facility] ED Note - Physicianon 2022 ED Note - Physician Patient: JANNETTE WONG Age: 27 years Sex: FEMALE : 1995 Associated Diagnoses: Toe fracture, right Author: Paddy Figueroa DO Basic Information Additional information: Chief Complaint from Nursing Triage Note : Chief Complaint 03/09/2023 21:23 EST Chief Complaint C/o R lateral foot pain, radiates into 5th digit. Struck foot against vaccuum laboratory equipment cleaner, tripped on toy. MSP intact, cap refill <2 sec. Pain w walking and ambulating. Works in [employer] standing on feet daily. Mom with her. No OTC meds . History of Present Illness 27-year-old female to the emergency department chief complaint of right foot pain. Patient states that she excellently hit her foot and rolled it against a vacuum laboratory equipment cleaner. No other injury no head injury no loss of consciousness no neck or back pain. Patient complains of pain lateral aspect of right foot and also difficult time weightbearing. Review of Systems Constitutional symptoms: Negative except as documented in HPI. Skin symptoms: Negative except as documented in HPI. Eye symptoms: Negative except as documented in HPI. ENMT symptoms: Negative except as documented in HPI. Respiratory symptoms: Negative except as documented in HPI. Cardiovascular symptoms: Negative except as documented in HPI. Gastrointestinal symptoms: Negative except as documented in HPI. Genitourinary symptoms: Negative except as documented in HPI. Musculoskeletal symptoms: Joint pain. Neurologic symptoms: Negative except as documented in HPI. Health Status Allergies: Allergic Reactions (Selected) Severity Not Documented Codeine- No reactions were documented.. Medications: (Selected) Inpatient Medications Ordered THP #1 Tab acetaminophen-hydrocod one 325 mg-5 m packet(s), PO, Once acetaminophen-hydrocod one 325 mg-5 mg oral tablet: 1 tab(s), PO, Once Prescriptions Prescribed Colace 100 mg oral capsule: 100 mg = 1 cap(s), PO, BID, PRN: for constipation, 20 cap(s), 0 Refill(s) Protonix 40 mg oral delayed release tablet: 40 mg = 1 tab(s), PO, BID, 60 tab(s), 0 Refill(s) Zofran 4 mg oral tablet: 4 mg = 1 tab(s), PO, q6hr, 12 tab(s), 0 Refill(s) ondansetron 4 mg oral tablet, disintegratin mg = 1 tab(s), PO, q8hr, PRN: as needed for nausea/vomiting, 15 tab(s), 0 Refill(s) potassium chloride 20 mEq oral tablet, extended release: 20 mEq = 1 tab(s), PO, Daily, for 3 day(s), 3 tab(s), 0 Refill(s) Documented Medications Documented buPROPion 75 mg oral tablet: 75 mg = 1 tab(s), PO, BID, 0 Refill(s) dicyclomine 10 mg oral capsule: 10 mg = 1 cap(s), PO, Daily, 0 Refill(s). Past Medical/ Family/ Social History Medical history: Resolved Chest pain ([id number]): Resolved.. Surgical history: Transfusions ([id number]). Anemia ([id number]).. Family history: No family history items have been selected or recorded.. Social history: Social & Psychosocial Habits Alcohol 03/12/2020 Alcohol Use: Current Type: Liquor Frequency: 1-2 times per month 06/12/2020 Alcohol Use: Current Type: Wine Frequency: 1-2 times per month 03/09/2023 Alcohol Use: Current Concerns about alcohol use in household: No Comment: Denies use - 03/09/2023 21:27 - Jorge RN, Viridiana Oleary Substance Use 06/12/2020 Substance use: Never 03/09/2023 Substance use: Never Tobacco 03/12/2020 Smoking tobacco use: Never (less than 100 in l 06/12/2020 Smoking tobacco use: Never (less than 100 in l 03/09/2023 Smoking tobacco use: Never tobacco user Electronic Cigarette/Vaping 03/12/2020 Electronic Cigarette Use: Never 06/12/2020 Electronic Cigarette Use: Never 03/09/2023 Electronic Cigarette Use: Never . Problem list: Active Problems (5) Cyst, ovarian Depression Miscarriage None Spontaneous miscarriage . Physical Examination Vital Signs Vital Signs 03/09/2023 21:23 EST Temperature Tympanic 36.2 DegC LOW Peripheral Pulse Rate 99 bpm Respiratory Rate 16 br/min Systolic Blood Pressure 131 mmHg Diastolic Blood Pressure 86 mmHg SpO2 96 % Oxygen Therapy Room air . Measurements 03/09/2023 21:25 EST Height/Length Dosing 157.000 cm Weight Dosing 83.000 kg 03/09/2023 21:23 EST Height/Length Estimated 157.000 cm Weight Estimated 83.000 kg . General: Alert, no acute distress, Appears uncomfortable. Skin: Warm, dry. Head: Normocephalic, atraumatic. Neck: Supple. Ears, nose, mouth and throat: Oral mucosa moist. Cardiovascular: Regular rate and rhythm, No murmur. Respiratory: Lungs are clear to auscultation, respirations are non-labored. Musculoskeletal: Ankle/foot: Examination of the right foot and ankle shows no gross deformity. No redness warmth or signs of infection. There is mild swelling about the fifth metatarsal distally into the toe with early bruising noted. Neurovascularly intact distally. Patient diffusely tender about the lateral aspect of the foot and also fourth and fifth toes. No tenderness about the Achilles tendon or proximal (more content not included)... Normal [facility] ED Patient Summaryon 023 ED Patient Summary [facility] - Emergency Department [address] [place] [address] PATIENT DISCHARGE INSTRUCTIONS Patient Information Name: JANNETTE WONG Age: 27 Years Date of : 1995 Reason For Visit: Foot pain-swelling; RIGHT FOOT PAIN Arrival Time: 03/09/2023 21:15:57 Primary Care Physician: Juliana Thorne Attending Physician: Paddy Figueroa DO Comment: Visit Diagnosis: Diagnoses This Visit Foot pain-swelling ([id number]) Toe fracture, right (S92.911A) The Pharmacy at [facility] is open Wednesday through Wednesday from 9A to 6P and Wednesday and Wednesday from 9A to 5P Prescription Information: If you have been given a prescription for narcotics, seek immediate medical attention if you have any difficulty breathing or any sudden status changes such as confusion and sleepiness. If you or anyone you know is experiencing suicidal thoughts, mental health, alcohol and/or drug addiction problems; contact the Mental [facility] Recovery [facility] 09/11 Crisis Hotline -Text 4HYZY iv 752237. If you received any narcotics, sedation, or any other medication that causes drowsiness for the next 24 hours, unless otherwise directed: ? Do not drive a car. ? Do not operate machinery such as power tools, lawn mowers, drills, sewing machines, or stoves ? Avoid alcoholic beverages and drugs for allergies, nerves, or sleep ? Do not make important personal or business decisions or sign any legal documents With: Address: When: PADDY CANELA [address] [place], [place] [id number] Business (1) Within 2 to 4 days Comments: Call for follow up appointment Return if symptoms worsen Medication Information: The exam and treatment you received today in the [facility] Emergency Department were for an urgent problem and are not intended as complete care. It is important for you to follow up with a doctor, nurse practitioner, or physician?s biology laboratory assistant for ongoing care. If your symptoms become worse or you do not improve as expected and you are unable to reach your usual health care provider, you should return to the Emergency Department, we are available 24 hours a day. For those patients who have received Radiology results, the interpretation of your X-ray as given to you by our Emergency Department physician is only a preliminary report. The Radiologist will review your films and if there is a change in the diagnosis you will be notified by phone. Please make sure you have provided a working phone number so we can reach you if necessary. In the event that you had a lab culture while you were a patient in the Emergency Department, you will be notified by phone if there is a need to change your antibiotic. Please make sure you have provided a working phone number so we can reach you if necessary. [facility] Emergency Department has provided you with a complete list of medications post discharge. Please inform your security flex officer/provider of your visit and for further instruction on these medications. Any specific questions regarding your chronic medications and dosages should be discussed with your primary care physician(s) and/or pharmacist. New Medications [id number], [address], [place] [id number], [phone] acetaminophen-hydrocod one (acetaminophen-hydroco done 325 mg-5 mg oral tablet) 1 tab(s) Oral Every 4 hours as needed as needed for pain. Refills: 0. ibuprofen (ibuprofen 600 mg oral tablet) 1 tab(s) Oral Every 8 hours. Refills: 0. Additional medications on your home medication list not specifically addressed. Please contact the ordering physician if you have questions about these medications. buPROPion (buPROPion 75 mg oral tablet) 1 tab(s) Oral 2 times a day. dicyclomine (dicyclomine 10 mg oral capsule) 1 cap(s) Oral every day. docusate (Colace 100 mg oral capsule) 1 cap(s) Oral 2 times a day as needed for constipation. Refills: 0. ondansetron (ondansetron 4 mg oral tablet, disintegrating) 1 tab(s) Oral Every 8 hours as needed as needed for nausea/vomiting. Refills: 0. ondansetron (Zofran 4 mg oral tablet) 1 tab(s) Oral Every 6 hours. Refills: 0. pantoprazole (Protonix 40 mg oral delayed release tablet) 1 tab(s) Oral 2 times a day. Refills: 0. potassium chloride (potassium chloride 20 mEq oral tablet, extended release) 1 tab(s) Oral every day for 3 Days. Refills: 0. Visit Information Allergies: Substance Reaction Symptoms Type Comments codeine Drug Vital Signs: Vitals and Measurements this Visit (last charted value for your 03/09/2023 visit) Vital Signs This Visit Temperature Tympanic: 36.2 DegC Peripheral Pulse Rate: 99 bpm Respiratory Rate: 16 br/min Systolic Blood Pressure: 131 mmHg Diastolic Blood Pressure: 86 mmHg SpO2: 96 % Oxygen Therapy: Room air Measurements This Visit Height/Length Dosin.000 cm Height/Length (more content not included)... Normal [facility] XR Foot Complete Righton XR Foot Complete Right HISTORY: Foot pain after injury COMPARISON: None available TECHNIQUE: AP, lateral, and oblique views. FINDINGS: Mildly displaced obliquely oriented fracture of the fifth proximal phalanx with associated soft tissue edema. The remaining visualized bones are intact. No dislocation. IMPRESSION: Mildly displaced fracture of the fifth proximal phalanx. Final Signed (Electronic Signature): Gael Monroe DO 03/10/23 10:10 a Technologist: JEANIE [facility] ABO/Rh Retypeon 02-18-2021 ABO/RH Recheck Result Positive Normal [facility] Comment on above: Result Comment: PERF ORMED BY: [place] [address] PATHOLOGIST CHIEF ENVIRONMENTAL COMMITMENT OFFICER MICHAEL BOB M.D. Basic Metabolic Panelon 11 Calcium [Mass/Vol] 8.8 mg/dL Normal 8.2-10.2 [facility] Comment on above: Performed By: #### P TT, CBC, LACTIC, BMP, PT, HCGQNT #### [address] Chloride [Moles/Vol] 105 mmol/L Normal 95-114 [facility] Comment on above: Performed By: #### P TT, CBC, LACTIC, BMP, PT, HCGQNT #### [address] CO2 [Moles/Vol] 20.5 mmol/L Low 22.0-30.0 [facility] Comment on above: Performed By: #### P TT, CBC, LACTIC, BMP, PT, HCGQNT #### [address] Creatinine [Mass/Vol] 0.65 mg/dL Normal 0.44-1.[address] [facility] Comment on above: Performed By: #### P TT, CBC, LACTIC, BMP, PT, HCGQNT #### [place] [address] [place] Creatinine Clr Calc Pharmacy 135.44 [facility] Comment on above: Performed By: #### P TT, CBC, LACTIC, BMP, PT, HCGQNT #### [address] Estimated GFR ( Heena > 60 [facility] Comment on above: Result Comment: GFR estimated reference range: According to KDOQI guidelines, <60 ml/min/1.73m2 is sufficient to diagnose a patient with chronic kidney disease. Performed By: #### P TT, CBC, LACTIC, BMP, PT, HCGQNT #### [facility] [address] Estimated GFR (Non- Am > 60 Normal [facility] Comment on above: Performed By: #### P TT, CBC, LACTIC, BMP, PT, HCGQNT #### [facility] [address] Glucose [Mass/Vol] 99 mg/dL Normal 70-100 [facility] Comment on above: Result Comment: [facility] Glucose Reference Range is dependent on time and content of last meal. Glucose of more than 200 mg/dL in a nonstressed, ambulatory subject supports the diagnosis of Diabetes Mellitus. ADA recommended reference range Performed By: #### P TT, CBC, LACTIC, BMP, PT, HCGQNT #### [address] Potassium [Moles/Vol] 3.1 mmol/L Low 3.5-5.[address] [facility] Comment on above: Performed By: #### P TT, CBC, LACTIC, BMP, PT, HCGQNT #### [address] Sodium [Moles/Vol] 135 mmol/L Low 136-146 [facility] Comment on above: Performed By: #### P TT, CBC, LACTIC, BMP, PT, HCGQNT #### [address] Urea nitrogen [Mass/Vol] 4 mg/dL Low 9-23 [facility] Comment on above: Performed By: #### P TT, CBC, LACTIC, BMP, PT, HCGQNT #### [address] Complete Blood Count Auto Di ffon 02-18-2021 Basophils (Bld) [#/Vol] 0.0 10*3/uL Normal 0.0-0.2 [facility] Comment on above: Result Comment: PERF ORMED BY: [place] [address] PATHOLOGIST CHIEF ENVIRONMENTAL COMMITMENT OFFICER MICHAEL BOB M.D. Performed By: #### P TT, CBC, LACTIC, BMP, PT, HCGQNT #### [address] Basophils/100 WBC (Bld) 0.4 % Normal . [facility] Comment on above: Performed By: #### P TT, CBC, LACTIC, BMP, PT, HCGQNT #### [address] Eosinophils (Bld) [#/Vol] 0.0 10*3/uL Normal 0.0-0.45 [facility] Comment on above: Performed By: #### P TT, CBC, LACTIC, BMP, PT, HCGQNT #### [address] Eosinophils/100 WBC (Bld) 0.3 % Normal . [facility] Comment on above: Performed By: #### P TT, CBC, LACTIC, BMP, PT, HCGQNT #### [address] Erythrocyte distribution width (RBC) [Ratio] 13.4 % Normal 11.9-15.3 [facility] Comment on above: Performed By: #### P TT, CBC, LACTIC, BMP, PT, HCGQNT #### [address] Hematocrit (Bld) [Volume fraction] 29.1 % Low 34.0-46.4 [facility] Comment on above: Performed By: #### P TT, CBC, LACTIC, BMP, PT, HCGQNT #### [address] Hemoglobin (Bld) [Mass/Vol] 10.1 g/dL Low 11.8-15.4 [facility] Comment on above: Performed By: #### P TT, CBC, LACTIC, BMP, PT, HCGQNT #### [place] [address] [place] Lymphocytes (Bld) [#/Vol] 1.7 10*3/uL Normal 1.00-4.8 [facility] Comment on above: Performed By: #### P TT, CBC, LACTIC, BMP, PT, HCGQNT #### [address] Lymphocytes/100 WBC (Bld) 14.7 % Normal . [facility] Comment on above: Performed By: #### P TT, CBC, LACTIC, BMP, PT, HCGQNT #### [address] MCH (RBC) [Entitic mass] 30.1 pg Normal 24.7-34.3 [facility] Comment on above: Performed By: #### P TT, CBC, LACTIC, BMP, PT, HCGQNT #### [address] MCV (RBC) [Entitic vol] 86.8 fL Normal 80-100 [facility] Comment on above: Performed By: #### P TT, CBC, LACTIC, BMP, PT, HCGQNT #### [address] Mean Corpuscular HGB Conc 34.6 g/dL Normal 32.0-35.0 [facility] Comment on above: Performed By: #### P TT, CBC, LACTIC, BMP, PT, HCGQNT #### [address] Monocytes (Bld) [#/Vol] 0.5 10*3/uL Normal 0.0-0.8 [facility] Comment on above: Performed By: #### P TT, CBC, LACTIC, BMP, PT, HCGQNT #### [address] Monocytes/100 WBC (Bld) 4.4 % Normal . [facility] Comment on above: Performed By: #### P TT, CBC, LACTIC, BMP, PT, HCGQNT #### [address] Neutrophils (Bld) [#/Vol] 9.5 10*3/uL High 1.8-7.7 [facility] Comment on above: Performed By: #### P TT, CBC, LACTIC, BMP, PT, HCGQNT #### [address] Neutrophils/100 WBC (Bld) 80.2 % Normal . [facility] Comment on above: Performed By: #### P TT, CBC, LACTIC, BMP, PT, HCGQNT #### [address] Nucleated RBC/100 WBC (Bld) [Ratio] 0.1 % Normal 0-0.5 [facility] Comment on above: Performed By: #### P TT, CBC, LACTIC, BMP, PT, HCGQNT #### [address] Platelet mean volume (Bld) [Entitic vol] 7.0 fL Normal 6.3-10.7 [facility] Comment on above: Performed By: #### P TT, CBC, LACTIC, BMP, PT, HCGQNT #### [address] Platelets (Bld) [#/Vol] 432 10*3/uL Normal 150-450 [facility] Comment on above: Performed By: #### P TT, CBC, LACTIC, BMP, PT, HCGQNT #### [address] RBC (Bld) [#/Vol] 3.35 10*6/uL Low 3.60-5.00 [facility] Comment on above: Performed By: #### P TT, CBC, LACTIC, BMP, PT, HCGQNT #### [place] [address] [place] WBC (Bld) [#/Vol] 11.8 10*3/uL High 4.5-11.0 [facility] Comment on above: Performed By: #### P TT, CBC, LACTIC, BMP, PT, HCGQNT #### [place] [address] [place] Dipstick and Microscopicon 1 04-20-2020 Appearance (U) Turbid Critically abnormal Clear [facility] Comment on above: Order Comment: Name Collection Type:: Clean-Voided Midstream Performed By: #### A DDONUAPLUS #### [facility] [address] [place], [place] [id number] [place] Bacteria,Urine None Seen Normal None Seen [facility] Comment on above: Order Comment: Name Collection Type:: Clean-Voided Midstream Performed By: #### A DDONUAPLUS #### [facility] [address] [place] [address] [place] Bilirubin,Urine Negative Normal Negative [facility] Comment on above: Order Comment: Name Collection Type:: Clean-Voided Midstream Performed By: #### A DDONUAPLUS #### [place] [address] [place] Color (U) Yellow Normal Yellow [facility] Comment on above: Order Comment: Name Collection Type:: Clean-Voided Midstream Performed By: #### A DDONUAPLUS #### [facility] [address] [place] [address] [place] Glucose Ql (U) Normal Normal Normal [facility] Comment on above: Order Comment: Name Collection Type:: Clean-Voided Midstream Performed By: #### A DDONUAPLUS #### [place] [address] [place] Hyaline Casts,Urine 0-8 Normal 0-8 [facility] Comment on above: Order Comment: Name Collection Type:: Clean-Voided Midstream Result Comment: PERF ORMED BY: [place] [address] PATHOLOGIST CHIEF ENVIRONMENTAL COMMITMENT OFFICER MICHAEL BOB M.D. Performed By: #### A DDONUAPLUS #### [facility] [address] [place] [address] [place] Ketones Ql (U) 4+ High Negative [facility] Comment on above: Order Comment: Name Collection Type:: Clean-Voided Midstream Performed By: #### A DDONUAPLUS #### [facility] [address] [place] [address] Leukocyte esterase Test strip Ql (U) Negative Normal Negative [facility] Comment on above: Order Comment: Name Collection Type:: Clean-Voided Midstream Performed By: #### A DDONUAPLUS #### [place] [address] [place] Nitrite,Urine Negative Normal Negative [facility] Comment on above: Order Comment: Name Collection Type:: Clean-Voided Midstream Performed By: #### A DDONUAPLUS #### [address] Occult Blood,Urine 2+ High Negative [facility] Comment on above: Order Comment: Name Collection Type:: Clean-Voided Midstream Result Comment: PERF ORMED BY: [place] [address] PATHOLOGIST CHIEF ENVIRONMENTAL COMMITMENT OFFICER MICHAEL BOB M.D. Performed By: #### A DDONUAPLUS #### [address] pH (U) 6.0 [pH] Normal 5.0-9.0 [facility] Comment on above: Order Comment: Name Collection Type:: Clean-Voided Midstream Performed By: #### A DDONUAPLUS #### [place] [address] [place] Protein,Urine Trace High Negative [facility] Comment on above: Order Comment: Name Collection Type:: Clean-Voided Midstream Performed By: #### A DDONUAPLUS #### [place] [address] [place] RBC,Urine 5-9 High 0-4 [facility] Comment on above: Order Comment: Name Collection Type:: Clean-Voided Midstream Performed By: #### A DDONUAPLUS #### [address] Specificy [place],Urine 1.030 Normal 1.001-1.030 [facility] Comment on above: Order Comment: Name Collection Type:: Clean-Voided Midstream Performed By: #### A DDONUAPLUS #### [address] Squamous Epithelial Cell,Urine 3-4 High 0-2 [facility] Comment on above: Order Comment: Name Collection Type:: Clean-Voided Midstream Performed By: #### A DDONUAPLUS #### [address] Urobilinogen,Urine Normal Normal Normal [facility] Comment on above: Order Comment: Name Collection Type:: Clean-Voided Midstream Performed By: #### A DDONUAPLUS #### [address] WBC,Urine 1-2 Normal 0-4 [facility] Comment on above: Order Comment: Name Collection Type:: Clean-Voided Midstream Performed By: #### A DDONUAPLUS #### [address] HCG,Quantitativeon 1 HCG,Quantitative 7147.00 m[iU]/mL Normal [facility] Comment on above: Result Comment: Appr oximate Approximate hCG Gestational Age Range (mIU/ml) (weeks) 0.2-1 5-50 1-2 50-500 2-3 100-5,000 3-4 500-10,000 4-5 1,000-50,000 5-6 10,000-100,000 6-8 15,000-200,000 8-12 10,000-100,000 PERFORMED BY: [address] [place] [address] PATHOLOGIST CHIEF ENVIRONMENTAL COMMITMENT OFFICER MICHAEL BOB M.D. Performed By: #### P TT, CBC, LACTIC, BMP, PT, HCGQNT #### [address] Johann 02-18-2021 L -- ---- Specimen: [id number] Received: 02/19/21 Status: KATHERINE Keithluly Num: [id number] Spec Type: Surgical Subm Dr: Paulino Cid DO Tissues: A Products of Conception - Spontaneous or Missed ( TISSUE/RETAIN Procedures: HE Stain/3, Gross/Micro L4 ---- Patient Age/Sex Location Account Attending Physician ---- Jannette Wong / E3 [id number] Paulino Cid DO ---- SPEC NUM: [id number] RECD: 02/19/21 STATUS: KATHERINE KEITHLuly NUM: [id number] LUAN: 02/18/[address] [facility] [address]: Paulino Cid DO ENTERED: 02/19/21 [facility] DR: SPEC TYPE: Surgical DEPT: S ORDERED: HE Stain/3, Gross/Micro L4 ORDERED: HE Stain/3, Gross/Micro L4 Pathological Diagnosis Products of conception, curettings: - Immature chorionic villi and decidual tissue are present. Clinical Information Miscarriage, eight weeks Gross Description Received in a container filled with formalin, labeled with patient's name and number, are multiple fragments of red-brown soft tissue admixed with blood clots measuring together 9 x 5 x 2.5 cm. Possible villi and membranous sac like structure is identified. No parts are identified. Monotype Operator sections are submitted in three cassettes labeled A1-A3. Microscopic Description Three glass slides with H E stained material have been examined. The microscopic findings support the above pathologic diagnosis. CPT Codes 56233 ---- ---- Specimen: [id number] Received: 02/19/21 Status: KATHERINE Barrera Num: [id number] Spec Type: Surgical Subm Dr: Paulino Cid DO Tissues: A Products of Conception - Spontaneous or Missed ( TISSUE/RETAIN Procedures: HE Stain/3, Gross/Micro L4 ---- Patient: MarvinJannette C [id number] (Continued) ---- Signed (signature on file) Melissa Allison MD 02/20/21 1430 Normal [facility] Lactic Acidon 02-18-2021 Lactate [Moles/Vol] 1.1 mmol/L Normal 0.5-2.2 [facility] Comment on above: Result Comment: PERF ORMED BY: [place] [address] PATHOLOGIST CHIEF ENVIRONMENTAL COMMITMENT OFFICER MICHAEL BOB M.D. Performed By: #### P TT, CBC, LACTIC, BMP, PT, HCGQNT #### [facility] [address] [place] [address] Partial Thromboplastin Timeo n 02-18-2021 aPTT Coag (Bld) [Time] 30.1 s Normal 25.1-36.5 [facility] Comment on above: Result Comment: PERF ORMED BY: [place] [address] PATHOLOGIST CHIEF ENVIRONMENTAL COMMITMENT OFFICER MICHAEL BOB M.D. Performed By: #### P TT, CBC, LACTIC, BMP, PT, HCGQNT #### [facility] [address] [place] [address] [place] Prothrombin Time INRon 02-18 INR Coag (PPP) [Relative time] 1.1 {INR} Normal [facility] Comment on above: Result Comment: INR Therapeutic Range A) Pre- and Peroperative OAT started two weeks before surgery. NOT HIP SURGERY: 1.5 - 2.5 HIP SURGERY: 2 - 3 B) Primary and secondary prevention of venous THROMBOSIS: 2 - 3 C) Active venous thrombosis, pulmonary embolism and prevention of recurrent venous thrombosis: 2 - 3 D) Prevention of arterial thromboembolism including patients with mechanical heart valves: 3 - 4.5 Performed By: #### P TT, CBC, LACTIC, BMP, PT, HCGQNT #### [facility] [address] [place] [id number] [facility] PT Coag (PPP) [Time] 12.5 s Normal 9.0-12.9 [facility] Comment on above: Performed By: #### P TT, CBC, LACTIC, BMP, PT, HCGQNT #### [address] Type and Screenon 02-18-2021 ABO and Rh group Nom (Bld) Blood group O Rh(D) positive Normal [facility] Comment on above: Result Comment: PERF ORMED BY: [place] [address] PATHOLOGIST CHIEF ENVIRONMENTAL COMMITMENT OFFICER MICHAEL BOB M.D. US OB transvaginalon 021 US OB transvaginal [facility] Main [place] [address] [place] [address] Ultrasound Report Signed Patient: Jannette Wong MR#: [id number] : 1995 Acct:[id number] Age/Sex: 25 / F ADM Date: 02/18/21 Loc: ER Room: Type: [facility] ER Attending Dr: Ordering Provider: Washington Thomas PA-C Date of Service: 02/18/21 US/US OB transvaginal: OB/Uterine Contractions Copies to: Washington Thomas PA-C TRANSVAGINAL OB ULTRASOUND CLINICAL DATA: Heavy vaginal bleeding. No heart rate on ultrasound from [facility] over the weekend. COMPARISON: None The uterus is retroverted. Estimated uterine size is approximately 10.6 x 7.5 x 8.4 cm. No gestational sac is identified. The endometrial lining appears thickened and heterogeneous. Products of conception are not excluded. The ovaries are seen. The right measures 3.9 x 2.2 x 2.7 cm. The left ovary measures 3.3 x 2.3 x 2.3 cm. No free fluid is noted. US/US OB transvaginal IMPRESSION: RETROVERTED UTERUS. HETEROGENEOUS ENDOMETRIUM THAT COULD BE RETAINED PRODUCTS OF CONCEPTION. Impression dictated by: Juliana Davison M.D.02/18/2021 7:38 PM Dictation Location: [place] [address] Tech: [facility] Transcribed By: LLOYD 02/18/211937 Dictated By: Juliana Davison MD 02/18/211933 Signed By: 02/18/211937 [facility] Vital Signs Date Time Vital Sign Value Performing Clinician Facility 05-27-2023 11:32-0500 Body mass index (BMI) [Ratio] 33.16 kg/m2 Juliana Hemmer PA Work Phone: [facility] 05-27-2023 11:32-0500 Body weight 84.91 kg Juliana Hemmer PA Work Phone: [facility] 05-27-2023 11:32-0500 Diastolic blood pressure 84 mm[Hg] Juliana Hemmer PA Work Phone: [facility] 05-27-2023 11:32-0500 Heart rate 84 /min Juliana Hemmer PA Work Phone: [facility] 05-27-2023 11:32-0500 Respiratory rate 16 /min Juliana Hemmer PA Work Phone: [facility] 05-27-2023 11:32-0500 SaO2% (BldA) [Mass fraction] 97 % Juliana Hemmer PA Work Phone: [facility] 05-27-2023 11:32-0500 Systolic blood pressure 122 mm[Hg] Juliana Hemmer PA Work Phone: [facility] 05-25-2023 15:25-0500 Body height 160 cm Ryan Fabian MD Work Phone: [facility] 05-25-2023 15:25-0500 Body mass index (BMI) [Ratio] 33.23 kg/m2 Ryan Fabian MD Work Phone: [facility] 05-25-2023 15:25-0500 Body weight 85.1 kg Ryan Fabian MD Work Phone: [facility] 05-25-2023 15:25-0500 Diastolic blood pressure 82 mm[Hg] Ryan Fabian MD Work Phone: [facility] 05-25-2023 15:25-0500 Heart rate 86 /min Ryan Fabian MD Work Phone: [facility] 05-25-2023 15:25-0500 Systolic blood pressure 128 mm[Hg] Ryan Fabian MD Work Phone: [facility] Encounters Encounter Date Encounter Type Care Provider Facility Start: 09-07-2023 End: 09-07-2023 ambulatory JULIANA THORNE Not Available Start: 08-25-2023 End: 08-25-2023 ambulatory RYAN [facility] Start: 07-06-2023 End: 07-06-2023 ambulatory [facility] Start: 07-06-2023 End: 07-06-2023 Office outpatient visit 25 minutes Anjelica Moeller MD Work Phone: [facility] Comment on above: Positive JUSTICE (antinu clear antibody) (Primary Dx); Migraine without aura and without status migrainosus, not intractable; Other idiopathic scoliosis, unspecified spinal region; Iron deficiency; Low serum vitamin D; Low serum vitamin B12 Start: 06-22-2023 End: 06-22-2023 ambulatory JULIANA THORNE Not Available Start: 06-10-2023 End: 06-11-2023 ambulatory ANJELICA [facility] Start: 06-10-2023 End: 06-10-2023 Office outpatient new 45 minutes Anjelica Moeller MD Work Phone: [facility] Comment on above: Positive JUSTICE (antinu clear antibody) (Primary Dx); Ds DNA antibody positive; Migraine without aura and without status migrainosus, not intractable; Other idiopathic scoliosis, unspecified spinal region; Iron deficiency; Low serum vitamin D; Low serum vitamin B12 Start: 05-27-2023 End: 05-27-2023 ambulatory JULIANA THORNE Not Available Start: 05-27-2023 End: 05-27-2023 Office outpatient visit 25 minutes Juliana Thorne PA Work Phone: [facility] Comment on above: Irritable bowel synd tha with diarrhea (Primary Dx); Obesity (BMI 30-39.9); Positive JUSTICE (antinuclear antibody); Vitamin D deficiency Start: 05-26-2023 Chart abstracting Juliana Castro er PA Work Phone: [facility] Start: 05-25-2023 End: 05-25-2023 Office outpatient visit 25 minutes Ryan Fabian MD Work Phone: [facility] [place] Comment on above: Thrombocytosis, unsp ecified (Primary Dx); History of iron deficiency; Vitamin D deficiency; B12 deficiency; Gitelman syndrome; Raynaud's disease without gangrene; Menorrhagia with regular cycle Start: 05-25-2023 End: 05-26-2023 Orders Only Ryan Fabian MD Work Phone: [facility] Comment on above: Vitamin D deficiency (Primary Dx); B12 deficiency Start: 04-28-2023 End: 04-28-2023 ambulatory JULIANA THORNE Not Available Start: 04-28-2023 End: 04-29-2023 ambulatory RYAN FABIAN [facility] Start: 04-26-2023 End: 04-26-2023 ambulatory YEVGENIY RIVERS Not Available Start: 04-15-2023 Telephone encounter Annalee Lopez RN [facility] Comment on above: Appointment Start: 03-29-2023 End: 03-30-2023 ambulatory YEVGENIY RIVERS Not Available Start: 03-15-2023 End: 03-16-2023 ambulatory YEVGENIY RIVERS Not Available Start: 03-09-2023 End: 03-10-2023 Emergency department patient visit Juliana Thorne Facility:[facility] Procedures Date Procedure Procedure Detail Performing Clinician Start: 05-25-2023 Follow-up visit Follow-up RYAN FABIAN Start: 05-25-2023 Adult depression scr eening assessment Ryan Fabian MD Work Phone: Start: 05-09-2023 Adult depression scr eening assessment Annalee Lopez RN Start: 02-18-2021 Antibody screen Comment on above: Result Comment: PERF ORMED BY: [facility] [place] [address] PATHOLOGIST CHIEF ENVIRONMENTAL COMMITMENT OFFICER MICHAEL BOB M.D. Start: 01-14-2021 Microscopic observat ion [Identifier] in Cervix by Cyto stain Annalee Lopez RN Plan of Treatment Date Care Activity Detail Author Start: 02-16-2028 DTaP,Tdap and Td Vaccines (9 - Td or Tdap) DTaP,Tdap and Td Vaccines (9 - Td or Tdap) [facility] Start: 05-25-2024 Adult BMI Screening Adult BMI Screen ing [facility] Start: 05-25-2024 Depression Screening Depression Scre ening [facility] Start: 05-25-2024 Tobacco Screening Tobacco Screening [facility] Start: 01-15-2024 Screening for malign ant neoplasm of cervix Pap Smear [facility] Start: 11-18-2023 Adult BMI Screening Adult BMI Screen ing [facility] Start: 11-18-2023 Tobacco Screening Tobacco Screening [facility] Start: 09-09-2023 End: 09-09-2023 Patient encounter procedure 09/09/2023 10:30 AM EDT Office Visit [facility] [address] [facility] [address] [place] [address] Anjelica Moeller MD [address] [facility] [address] [place] [address] [facility] Start: 08-26-2023 Depression Screening Depression Scre ening [facility] Start: 08-25-2023 End: 08-25-2023 Telemedicine consultation with patient 08/25/2023 1:30 PM EDT Telemedicine [facility] [address] [facility] [address] [place] [phone] Ryan Fabian MD [address] [place] [address] [address] [place] [address] [facility] Start: 06-10-2023 End: 06-10-2023 Patient encounter procedure 06/10/2023 9:45 AM EST Office Visit [facility] [address] [phone] Anjelica Moeller MD [address] [address] [facility] Start: 05-27-2023 End: 05-27-2023 Patient encounter procedure 05/27/2023 11:30 AM EST Office Visit [facility] [address] [facility] [address] [place] [address] Juliana Thorne PA [address] [facility] [address] [place] [address] [facility] Start: 05-25-2023 End: 05-25-2023 Patient encounter procedure 05/25/2023 3:30 PM EST Office Visit [facility] [address] [facility] [address] [place] [address] Ryan Fabian MD [address] [place] [address] [address] [place] [address] [facility] Start: 12-18-2022 Influenza vaccination [facility] Start: 2015 Adult BMI Follow Up Plan Adult BMI Follow Up Plan [facility] Aldosterone [Mass/volume] in Serum or Plasma Aldosterone Lab Routine Gitelman syndrome 05/25/2023 4:37 PM EST [facility] End: 05-25-2024 Aldosterone Note: Restrict Location Aldosterone Note: Restrict Location Lab Routine Gitelman syndrome 1 Occurrences starting 05/25/2023 until 05/25/2024 [facility] Comment on above: 1 Occurrences starti ng 05/25/2023 until 05/25/2024 End: 06-10-2024 Antinuclear Ab, HEp-2 Substrate, S Antinuclear Ab, HEp-2 Substrate, S Lab Routine Positive JUSTICE (antinuclear antibody) 1 Occurrences starting 06/10/2023 until 06/10/2024 [employer] Work Phone: Comment on above: 1 Occurrences starti ng 06/10/2023 until 06/10/2024 Antinuclear Ab, HEp- 2 Substrate, S Antinuclear Ab, HEp-2 Substrate, S Lab Routine Positive JUSTICE (antinuclear antibody) 06/10/2023 10:24 AM EST [employer] End: 05-25-2024 Cyanocobalamin vitamin b-12 Vitamin B12 Lab Routine B12 deficiency 1 Occurrences starting 05/25/2023 until 05/25/2024 [employer] Work Phone: Comment on above: 1 Occurrences starti ng 05/25/2023 until 05/25/2024 Intrinsic factor blocking Ab [Presence] in Serum Intrinsic factor blocking antibody Lab Routine B12 deficiency 05/25/2023 4:37 PM EST [employer] End: 05-25-2024 Intrinsic factor blocking antibody Intrinsic factor blocking antibody Lab Routine B12 deficiency 1 Occurrences starting 05/25/2023 until 05/25/2024 [employer] Work Phone: Comment on above: 1 Occurrences starti ng 05/25/2023 until 05/25/2024 JAK2 gene [id number] [Presence] in Blood or Tissue by Molecular genetics method JAK2 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 mutation Lab Routine Thrombocytosis, unspecified 05/25/2023 4:37 PM EST [employer] End: 05-25-2024 JAK2 [id number] mutation JAK2 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 mutation Lab Routine Thrombocytosis, unspecified 1 Occurrences starting 05/25/2023 until 05/25/2024 [employer] Comment on above: 1 Occurrences starti ng 05/25/2023 until 05/25/2024 End: 05-25-2024 Parietal cell AB IGG Parietal cell AB IGG Lab Routine B12 deficiency 1 Occurrences starting 05/25/2023 until 05/25/2024 [employer] Comment on above: 1 Occurrences starti ng 05/25/2023 until 05/25/2024 Parietal cell IgG Ab [Units/volume] in Serum Parietal cell AB IGG Lab Routine B12 deficiency 05/25/2023 4:37 PM EST [employer] End: 05-25-2024 Renin Activity Renin Activity Lab Routine Gitelman syndrome 1 Occurrences starting 05/25/2023 until 05/25/2024 [facility] Comment on above: 1 Occurrences starti ng 05/25/2023 until 05/25/2024 Renin Activity Renin Activity L ab Routine Gitelman syndrome 05/25/2023 4:37 PM EST [facility] End: 05-25-2024 Tissue transglutaminase, IgA & IgG Tissue transglutaminase, IgA & IgG Lab Routine B12 deficiency 1 Occurrences starting 05/25/2023 until 05/25/2024 [facility] Comment on above: 1 Occurrences starti ng 05/25/2023 until 05/25/2024 Tissue transglutamin ase, IgA & IgG Tissue transglutaminase, IgA & IgG Lab Routine B12 deficiency 05/25/2023 4:37 PM EST [facility] End: 05-25-2024 Vitamin D 25 hydroxy Vitamin D 25 hydroxy Lab Routine Vitamin D deficiency 1 Occurrences starting 05/25/2023 until 05/25/2024 [facility] Comment on above: 1 Occurrences starti ng 05/25/2023 until 05/25/2024 Immunizations Immunization Date Immunization Notes Care Provider Fa cili 02-15-2020 influenza, injectabl e, quadrivalent, preservative free Annalee Lopez RN [facility] 02-15-2020 influenza virus vaccine, unspecified formulation Annalee Lopez RN [facility] 02-15-2018 tetanus toxoid, redu lupe diphtheria toxoid, and acellular pertussis vaccine, adsorbed Annalee Lopez RN [facility] 02-01-2018 influenza, injectabl e, quadrivalent, preservative free Annalee Lopez RN [facility] 12-09-2009 diphtheria, tetanus toxoids and pertussis vaccine Juliana BERG Work Phone: [facility] 12-09-2009 meningococcal polysaccharide (groups A, C, Y and W-135) diphtheria toxoid conjugate vaccine (MCV4P) Juliana BERG Work Phone: [facility] 12-09-2009 tetanus toxoid, redu lupe diphtheria toxoid, and acellular pertussis vaccine, adsorbed Juliana BERG Work Phone: [facility] 12-25-2002 diphtheria, tetanus toxoids and pertussis vaccine Juliana Hemmer PA Work Phone: [facility] 12-25-2002 measles, mumps and rubella virus vaccine Juliana Hemmer PA Work Phone: [facility] 12-25-2002 poliovirus vaccine, inactivated Juliana Hemmer PA Work Phone: [facility] 12-25-2002 poliovirus vaccine, unspecified formulation Juliana Hemmer PA Work Phone: [facility] 03-24-1999 diphtheria, tetanus toxoids and acellular pertussis vaccine, unspecified formulation Juliana Hemmer PA Work Phone: [facility] 03-24-1999 varicella virus vaccine Patience vibha Hemmer PA Work Phone: [facility] 07-29-1998 haemophilus influenz ae type b vaccine, conjugate unspecified formulation Juliana Hemmer PA Work Phone: [facility] 07-29-1998 trivalent poliovirus vaccine, live, oral Juliana Hemmer PA Work Phone: [facility] 05-27-1998 diphtheria, tetanus toxoids and acellular pertussis vaccine, unspecified formulation Juliana Hemmer PA Work Phone: [facility] 05-27-1998 haemophilus influenz ae type b vaccine, conjugate unspecified formulation Juliana Hemmer PA Work Phone: [facility] 05-27-1998 hepatitis B vaccine, pediatric or pediatric/adolescent dosage Juliana Hemmer PA Work Phone: [facility] 05-27-1998 measles, mumps and rubella virus vaccine Juliana Hemmer PA Work Phone: [facility] 1997 diphtheria, tetanus toxoids and acellular pertussis vaccine, unspecified formulation Juliana Hemmer PA Work Phone: [facility] 1997 haemophilus influenz ae type b vaccine, conjugate unspecified formulation Juliana Hemmer PA Work Phone: [facility] 1997 trivalent poliovirus vaccine, live, oral Juliana Hemmer PA Work Phone: [facility] 1997 diphtheria, tetanus toxoids and acellular pertussis vaccine, unspecified formulation Juliana BERG Work Phone: [facility] 1997 haemophilus influenz ae type b vaccine, conjugate unspecified formulation Juliana BERG Work Phone: [facility] 1997 hepatitis B vaccine, pediatric or pediatric/adolescent dosage Juliana BERG Work Phone: [facility] 1997 poliovirus vaccine, inactivated Juliana BERG Work Phone: [facility] 1997 hepatitis B vaccine, pediatric or pediatric/adolescent dosage Juliana BERG Work Phone: [facility] NEGATED: Highlighted row has not occurred!03-08-2022 tetanus toxoid, reduced diphtheria toxoid, and acellular pertussis vaccine, adsorbed Annalee Lopez RN [facility] NEGATED: Highlighted row has not occurred!2018 tetanus toxoid, reduced diphtheria toxoid, and acellular pertussis vaccine, adsorbed Annalee Lopez RN [facility] Comment on above: Deferred: Other - MORENA INTERIANO HAS IN OB OFFICE DURING THIS Payers Date Payer Category Payer Unknown [id number] 2019 Medicaid [id number] 2019 Medicaid [id number] 2015 Unknown [id number] 1997 Unknown [id number] 2.16.8 [id number] 1997 Unknown [id number] 2.16.840 .[id number] 1997 Unknown [id number] 2.16.840 .[id number] 1997 Unknown [id number] 2.16.840 .1.084557.3.579.2.1259 1997 Unknown [id number] 2.16.840 .1.260583.3.579.2.1259 1997 Unknown [id number] 2.16.84 0.1.052420.3.579.2.1286 1997 Unknown [id number] 2.16.8 40.1.301833.3.579.2.6 1997 Unknown [id number] 2.16.8 40.1.657041.3.579.2.1286 1997 Unknown [id number] 2.16.8 40.1.089826.3.579.2.128 1997 Unknown [id number] 2.16.8 40.1.106394.3.579.2.6 1997 Unknown [id number] 2.16.8 40.1.939608.3.579.2.128 1997 Unknown [id number] 2.16.8 40.1.026000.3.579.2.1286 1997 Unknown [id number] 2.16.84 0.1.095611.3.579.2.9 1997 Unknown [id number] 2.16.84 0.1.070551.3.579.2.9 1997 Unknown [id number] 2.16.84 0.1.791047.3.579.2.9 1997 Unknown [id number] 2.16.84 0.1.854938.3.579.2.9 1997 Unknown [id number] 2.16.84 0.1.361953.3.579.2.1259 Social History Date Type Detail Facility Start: 05-26-2022 End: 10-07-2022 Tobacco smoking status NHIS Never smoked tobacco [facility] Start: 05-26-2022 End: 10-07-2022 Tobacco use and exposure Smokeless tobacco non-user [facility] Start: 11-17-2022 End: 05-25-2023 Alcohol intake Ex-drinker (finding) [facility] Start: 05-30-2020 End: 11-17-2022 History of Social function [facility] Start: 05-30-2020 End: 11-17-2022 Tobacco use panel [facility] How hard is it for you to pay for the very basics like food, housing, medical care, and heating Not hard at all [facility] The thought of harming myself has occurred to me Never [facility] Start: 02-09-2020 Alcohol Comment occasional [facility] Start: 1997 [facility] Start: 03-03-2022 Gender identity Identifies as female gender (finding) [facility] Start: 03-03-2022 Sexual orientation Heterosexual (fin ding) [facility] Start: 04-28-2023 Alcohol Comment Caffeine intake: pop [facility] Start: 1997 Sex Assigned At Not on file [facility] NEGATED: Highlighted rowStart: NINF History of tobacco use Passive smoker [facility] Clinical Notes 03-10-2023 to 07-06-2023 Anjelica Moeller MD - 07/06/2023 11:30 AM Cheikh Moeller MD - 06/10/2023 9:45 AM MORENA Juarez - 05/27/2023 11:30 AM Thaddeus Fabian MD - 05/25/2023 3:30 PM EST Note Date & Type Note Facility 07-06-2023 History of Present illness Narrative Images from the original note were not included. [address] [id number] Date of Service: 07/06/2023 Video Visit via Real-time Synchronous Audiovisual Provider Location: [facility] [address] [place] [id number] Patient Location: Patient's home Patient Location Appointment Coordinator: None Video Visit Consent Statement: I discussed risks, benefits, and alternatives of a real-time synchronous audiovisual consultation with the patient (and any accompanying persons) including the risks that the patient's personal health details and medical records will be discussed over real-time, synchronous, interactive video/audio/telecommunication technology, the visit will not be recorded without the express consent of both the provider and the patient, and that there are some limitations compared to [id number] evaluations. We elected to proceed. Chief Complaint: Abnormal labs SUBJECTIVE: Jannette Wong is a 28 y.o. female who has video visit rheumatology clinic in follow up evaluation of possible underlying autoimmune disease. The problem has been present for several months. Patient has history of recurrent miscarriages, iron deficiency and thrombocytosis who was seen by patent solicitor status post iron infusion treatment. She is referred to deputy clerk of court for having JUSTICE. Onset was gradual. The symptoms are of moderate severity. They are made worse by: nothing. They are helped by nothing. Associated symptoms include: none. Previously used rheumatologic medications include none. Limitation on activities include: none. Rheumatology Family Hx: no family hx related to rheumatology noted. Previous Meds tried: Previous Procedures: REVIEW OF SYSTEMS: CONSTITUTIONAL: Admits: [] Weight Loss [] Fever [] Frequent Night Sweats OPHTHALMOLOGIC: Admits: [] Glaucoma [] History or Current Inflammatory Eye Disease [] Cataracts ENT: Admits: [] Oral/Nasal Ulcers [] epistaxis [] Recurrent Sinusitis [] Dry Eyes [] Dry mouth CARDIOVASCULAR: Admits: [] Chest pain [] Pericarditis/Pleuritis [] Palpitations [] Edema RESPIRATORY: Admits: [] hemoptysis [] Dyspnea on Exertion [] Cough [] Wheezing GASTROINTESTINAL: Admits: [] Bloody Stool [] Diarrhea [] Vomitting GENITOURINARY: Admits: [] Blood in urine [] Genital Ulcers [] Burning/pain with urination MUSCULOSKELETAL: Admits: [] Muscle Pain [] Joint Pain INTEGUMENTARY: Admits: [] Skin changes [] Sclerodactyly [] Raynauds [] Photosensitivity [] Alopecia NEUROLOGIC: Admits: [] Recurrent Headaches [] Limb Weakness [] Numbness/Tingling PSYCHIATRIC: Admits: [] Insomnia [] Depression [] Anxiety ENDOCRINE: Admits: [] Thyroid abnormalities HEMATOLOGY/LYMPH: Admits: [] Notable Swollen Lymph Nodes [] History of Cytopenias [] Bruising tendency [] History of DVT/PE All non checked boxes, patient denies. All other 10 point ROS reviewed and negative. PHYSICAL EXAMINATION: Constitutional: There were no vitals taken for this visit.: reviewed Comfortable, pleasant, no acute distress Eyes: Conjunctiva clear and moist, eyelids without lesions. Extraocular movements fully intact. Ears/Nose/Mouth/Throat: External inspection of ears/nose is normal - no scars, lesions, masses No oral ulcers or lesions on mucosa of inner mouth, tongue. Neck: Symmetrical, tongue midline, no masses, no lymphadenopathy, no thyromegaly Respiratory: Inspiratory and expiratory effort normal. Clear to auscultation bilaterally. No crackles or wheezes. Cardiovascular: Palpation of heart reveals normal PMI. Auscultation: regular rate rhythm, no murmurs/rubs/gallops. Carotid arteries symmetric and 2+. No edema of extremities Gastrointestinal: Soft, nontender, bowel sounds in all quadrants. No hepatosplenomegaly on palpation. Lymphatic: No lymphadenopathy in neck Neurologic: Facial muscles symmetric and of normal strength. Tongue is midline. Dermatologic: Inspection and palpation of skin and subcutaneous tissue of all four extremities without rashes Nailfold capillary exam normal Psychiatric: Normal affect. Judgement/insight intact. Musculoskeletal: Neck: Full ROM. no swelling, No tenderness, Shoulder: Bilateral full active ROM. no swelling, No tenderness, Elbows: Full ROM. no swelling, No tenderness, Wrists: Full ROM. no swelling, No tenderness, Hands: Full ROM. no swelling, No tenderness, Hips: Normal ROM. No swelling, No tenderness, Knees: Normal ROM, no swelling, No tenderness, Feet: Full ROM. no swelling, No tenderness, Ankles: Normal ROM,no swelling, No tenderness, Spine: no tenderness throughout spine, no sacroiliac joint tenderness Labs & Imaging: Labs and Imaging reviewed and discussed with the patient during the visit. Lab Results Component Value Date C3 173 06/10/2023 C4 39 06/10/2023 Lab Results Component Value Date WBC 9.4 05/25/2023 HGB 13.2 05/25/2023 HCT 38.4 05/25/2023 MCV 89 05/25/2023 PLT 473 (H) 05/25/2023 Lab Results Component Value Date CREATININE 0.48 02/06/2022 BUN 4 (L) 02/06/2022 K 3.5 05/25/2023 CL 104 02/06/2022 CO2 26 02/06/2022 Lab Results Component Value Date ALT 8 02/06/2022 AST 10 02/06/2022 ALKPHOS 116 02/06/2022 Lab Results Component Value Date SEDRATE 18 05/25/2023 Lab Results Component Value Date CRP 0.6 05/25/2023 No results found. ASSESSMENT/PLAN: Jannette was seen today for new patient. Diagnoses and all orders for this visit: Positive JUSTICE (antinuclear antibody) - The JUSTICE was checked by Wireless Network Engineer. - She denies hx of photosensitivity, no dry eye/mouth, no recurrent oral/nasal ulcer, some Raynaud's, no DVT/PE, recurrent miscarriage in the past, no pleurisy. Her energy is low, denies patchy hair loss. - Based on history and ph/ex, few sign and symptoms of connective tissue disease. - All serologies are negative. I recommend observing symptoms. - [facility] - [place], [place] Migraine without aura and without status migrainosus, not intractable - managed by PCP Other idiopathic scoliosis, unspecified spinal region - managed by PCP Iron deficiency - history of iron deficiency and check labs again for iron infusion Low serum vitamin D - severe low vitamin-D level - she is getting treated Low serum vitamin B12 - having low vitamin B12 and started on treatment Follow up in 6 months. Total time spent with the patient face to face was 30 minutes which included obtaining and reviewing history, performing an exam, educating and counseling the patient, communicating test results to the patient. Preparing to see the patient (reviewing all results, history, medications, my office notes, other physician notes), ordering tests/medications/referrals, documenting in the patient's health record time spent was 10 minutes This note was created with the assistance of a speech recognition program. While intending to generate a timely document that accurately reflects the content of the visit, no guarantee can be provided that every grammatical or spelling mistake has been or will be identified or corrected. Thank you for your understanding. Any information carried forward was reviewed, updated, and is pertinent to the current visit [facility] Dr. Anjelica Moeller M.D. [address] [place] [address], [address] [place] [address] Office: [phone] 07/06/2023 documented in this encounter [facility] [employer] 06-10-2023 History of Present illness Narrative Images from the original note were not included. [address] [address] [place] [id number] Date of Service: 06/10/2023 Thank you for the referral to evaluate Jannette Wong for having +JUSTICE. This is a new patient and is seen at the request of MORENA GIRON. Chief Complaint: Abnormal labs SUBJECTIVE: Jannette Wong is a 28 y.o. female who came to rheumatology clinic for new patient evaluation of possible underlying autoimmune disease. The problem has been present for several months. Patient has history of recurrent miscarriages, iron deficiency and thrombocytosis who was seen by patent solicitor status post iron infusion treatment. She is referred to deputy clerk of court for having JUSTICE. Onset was gradual. The symptoms are of moderate severity. They are made worse by: nothing. They are helped by nothing. Associated symptoms include: none. Previously used rheumatologic medications include none. Limitation on activities include: none. Rheumatology Family Hx: no family hx related to rheumatology noted. Previous Meds tried: Previous Procedures: Current Outpatient Medications Medication Sig Dispense Refill cyanocobalamin, vitamin B-12, 1,000 mcg/mL kit Inject 1,000 mcg as directed every 28 days. 3 kit 3 ergocalciferol (DRISDOL) 1,250 mcg (50,000 unit) capsule Take 1 capsule (50,000 Units total) by mouth once a week. 12 capsule 0 ferrous sulfate 325 (65 FE) mg tablet Take 1 tablet (325 mg total) by mouth every other day. 45 tablet 3 norethindrone-e.estradioL-iron (JUNEL FE 05/08, ,) 1 mg-20 mcg (21)/75 mg (7) per tablet Take 1 tablet by mouth in the morning. 28 tablet 12 SUMAtriptan (IMITREX) 25 mg tablet Take 1 tablet (25 mg total) by mouth every 12 (twelve) hours. tranexamic acid (LYSTEDA) 650 mg tablet Take 2 tablets (1,300 mg total) by mouth 3 (three) times a day as needed (take days 1-5 of menses). 30 tablet 5 No current facility-administered medications for this visit. reviewed. 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 Past Surgical History: Procedure Laterality Date DILATION AND CURETTAGE OF UTERUS SKIN BIOPSY reviewed. Social History Tobacco Use Smoking status: Never Passive exposure: Never Smokeless tobacco: Never Vaping Use Vaping Use: Never used Substance Use Topics Alcohol use: Not Currently Comment: occasional Drug use: No reviewed. Past Medical History: Diagnosis Date Abdominal migraine Dx by [facility] resolved Anemia affecting in third trimester Chlamydia Depression Habitual aborter Melanoma ([facility]) 2019 stomach legs left breast, no further tx just removal Ovarian cyst Scoliosis Varicella reviewed. Social History Social History Narrative Patient denies any intimate partner physical, emotional, or sexual abuse. reviewed Family History Problem Relation Age of Onset Heart disease Paternal Grandfather Heart disease Paternal Grandmother Diabetes Paternal Grandmother Cancer Maternal Grandmother ovarian/uterine Ovarian cancer Maternal Grandmother Cause of No Known Problems Maternal Grandfather No Known Problems Father Kidney disease Mother Gitelman's syndrome Asthma Sister Migraines Sister Ovarian cancer Maternal Aunt Ovarian cancer Maternal Aunt Spina bifida Cousin Spina bifida Cousin Ovarian cancer Other Breast cancer Neg Hx Colon cancer Neg Hx Uterine cancer Neg Hx reviewed. Allergies Allergen Reactions Codeine Swelling Facial swelling with Tylenol with Codeine. Can take Tylenol by itself. Lactose Intolerance (Lactase) [Lactase] GI Disturbance reviewed. The following portions of the patient's history were reviewed and updated as appropriate: allergies, current medications, past family history, past medical history, past social history, past surgical history and problem list. REVIEW OF SYSTEMS: CONSTITUTIONAL: Admits: [] Weight Loss [] Fever [] Frequent Night Sweats OPHTHALMOLOGIC: Admits: [] Glaucoma [] History or Current Inflammatory Eye Disease [] Cataracts ENT: Admits: [] Oral/Nasal Ulcers [] epistaxis [] Recurrent Sinusitis [] Dry Eyes [] Dry mouth CARDIOVASCULAR: Admits: [] Chest pain [] Pericarditis/Pleuritis [] Palpitations [] Edema RESPIRATORY: Admits: [] hemoptysis [] Dyspnea on Exertion [] Cough [] Wheezing GASTROINTESTINAL: Admits: [] Bloody Stool [] Diarrhea [] Vomitting GENITOURINARY: Admits: [] Blood in urine [] Genital Ulcers [] Burning/pain with urination MUSCULOSKELETAL: Admits: [] Muscle Pain [] Joint Pain INTEGUMENTARY: Admits: [] Skin changes [] Sclerodactyly [] Raynauds [] Photosensitivity [] Alopecia NEUROLOGIC: Admits: [] Recurrent Headaches [] Limb Weakness [] Numbness/Tingling PSYCHIATRIC: Admits: [] Insomnia [] Depression [] Anxiety ENDOCRINE: Admits: [] Thyroid abnormalities HEMATOLOGY/LYMPH: Admits: [] Notable Swollen Lymph Nodes [] History of Cytopenias [] Bruising tendency [] History of DVT/PE All non checked boxes, patient denies. All other 10 point ROS reviewed and negative. PHYSICAL EXAMINATION: Constitutional: LMP 05/09/2023 (Exact Date) : reviewed Comfortable, pleasant, no acute distress Eyes: Conjunctiva clear and moist, eyelids without lesions. Extraocular movements fully intact. Ears/Nose/Mouth/Throat: External inspection of ears/nose is normal - no scars, lesions, masses No oral ulcers or lesions on mucosa of inner mouth, tongue. Neck: Symmetrical, tongue midline, no masses, no lymphadenopathy, no thyromegaly Respiratory: Inspiratory and expiratory effort normal. Clear to auscultation bilaterally. No crackles or wheezes. Cardiovascular: Palpation of heart reveals normal PMI. Auscultation: regular rate rhythm, no murmurs/rubs/gallops. Carotid arteries symmetric and 2+. No edema of extremities Gastrointestinal: Soft, nontender, bowel sounds in all quadrants. No hepatosplenomegaly on palpation. Lymphatic: No lymphadenopathy in neck Neurologic: Facial muscles symmetric and of normal strength. Tongue is midline. Dermatologic: Inspection and palpation of skin and subcutaneous tissue of all four extremities without rashes Nailfold capillary exam normal Psychiatric: Normal affect. Judgement/insight intact. Musculoskeletal: Neck: Full ROM. no swelling, No tenderness, Shoulder: Bilateral full active ROM. no swelling, No tenderness, Elbows: Full ROM. no swelling, No tenderness, Wrists: Full ROM. no swelling, No tenderness, Hands: Full ROM. no swelling, No tenderness, Hips: Normal ROM. No swelling, No tenderness, Knees: Normal ROM, no swelling, No tenderness, Feet: Full ROM. no swelling, No tenderness, Ankles: Normal ROM,no swelling, No tenderness, Spine: no tenderness throughout spine, no sacroiliac joint tenderness Labs & Imaging: Labs and Imaging reviewed and discussed with the patient during the visit. No results found for: RF , C3 , C4 Lab Results Component Value Date WBC 9.4 05/25/2023 HGB 13.2 05/25/2023 HCT 38.4 05/25/2023 MCV 89 05/25/2023 PLT 473 (H) 05/25/2023 Lab Results Component Value Date CREATININE 0.48 02/06/2022 BUN 4 (L) 02/06/2022 K 3.5 05/25/2023 CL 104 02/06/2022 CO2 26 02/06/2022 Lab Results Component Value Date ALT 8 02/06/2022 AST 10 02/06/2022 ALKPHOS 116 02/06/2022 Lab Results Component Value Date SEDRATE 18 05/25/2023 Lab Results Component Value Date CRP 0.6 05/25/2023 No results found. ASSESSMENT/PLAN: Jannette was seen today for new patient. Diagnoses and all orders for this visit: Positive JUSTICE (antinuclear antibody) - The JUSTICE was checked by Wireless Network Engineer. - She denies hx of photosensitivity, no dry eye/mouth, no recurrent oral/nasal ulcer, some Raynaud's, no DVT/PE, recurrent miscarriage in the past, no pleurisy. Her energy is low, denies patchy hair loss. - Based on history and ph/ex, few sign and symptoms of connective tissue disease. - Will complete the w/up by checking serologies as below - further treatment per w/up results. - [facility] - [place], [place] - Antinuclear Ab, HEp-2 Substrate, S; Future - Beta-2 glycoprotein antibodies; Future - Anti cardiolipin AB IgG IgA IgM; Future - Complement profile (C3 AND C4); Future - Unlisted Lab Test; Future - VICKY Panel; Future - Thyroglobulin Ab; Future - Thyroid peroxidase antibody; Future Ds DNA antibody positive - [facility] - [place], [place] Migraine without aura and without status migrainosus, not intractable - managed by PCP Other idiopathic scoliosis, unspecified spinal region - managed by PCP Iron deficiency - history of iron deficiency and check labs again for iron infusion Low serum vitamin D - severe low vitamin-D level - she is getting treated Low serum vitamin B12 - having low vitamin B12 and started on treatment Follow up in 4 weeks. Total time spent with the patient face to face was 45 minutes which included obtaining and reviewing history, performing an exam, educating and counseling the patient, communicating test results to the patient. Preparing to see the patient (reviewing all results, history, medications, my office notes, other physician notes), ordering tests/medications/referrals, documenting in the patient's health record time spent was 10 minutes This note was created with the assistance of a speech recognition program. While intending to generate a timely document that accurately reflects the content of the visit, no guarantee can be provided that every grammatical or spelling mistake has been or will be identified or corrected. Thank you for your understanding. [facility] Dr. Anjelica Moeller M.D. [address] [place] [address] [address] [place] [address] Office: [phone] 06/10/2023 documented in this encounter [facility] 05-27-2023 History of Present illness Narrative Subjective Patient ID: Jannette Wong is a 28 y.o. female who presents for weight check. Jannette is present today for weight check. She started Adipex 04/28/23. 04/28/23 wt - 187.0 Today wt - 187.2 Pt is going to the gym 4 days a week and works out for 1 hour at a time. Pt is watching what she is eating. She states she did lose an inch around her waist. Seeing Rheumatology on the for positive JUSTICE. Current Outpatient Medications on File Prior to Visit Medication Sig Dispense Refill Cobalamin Combinations (B-12) 100-[address] 5,000 mcg under the tongue in the morning. ergocalciferol (Vitamin D2) 1.25 MG (66426 UT) capsule ferrous sulfate 325 (65 Fe) MG tablet Take 325 mg by mouth every other day tranexamic acid (Lysteda) 650 MG tablet tablet Take 1,300 mg by mouth 3 (three) times a day as needed Acetaminophen Extra Strength 500 MG tablet Take 500 mg by mouth every 6 (six) hours if needed for mild pain. norethindrone-ethinyl estradiol (Femhrt 04/23) 1-5 MG-MCG tablet Take 1 tablet by mouth 1 (one) time each day. phentermine (Adipex-P) 37.5 MG tablet Take 1 tablet (37.5 mg) by mouth in the morning. Take before meals. 30 tablet 0 rifAXIMin (Xifaxan) 200 MG tablet Take 1 tablet (200 mg) by mouth in the morning and 1 tablet (200 mg) in the evening and 1 tablet (200 mg) before bedtime. Do all this for 14 days. 42 tablet 0 SUMAtriptan (Imitrex) 25 MG tablet Take 1 tablet by mouth every 12 (twelve) hours. PRN No current facility-administered medications on file prior to visit. Allergies Allergen Reactions Codeine Swelling Facial swelling with Tylenol with Codeine. Can take Tylenol by itself. Lactose Intolerance (Gi) Unknown Social History Tobacco Use Smoking status: Never Smokeless tobacco: Never Substance Use Topics Alcohol use: Not Currently Comment: Caffeine intake: pop Drug use: Never Family History Problem Relation Name Age of Onset Heart disease Maternal Grandmother Mental illness Maternal Grandmother Stroke Maternal Grandmother Heart disease Maternal Grandfather Heart disease Paternal Grandmother Heart disease Paternal Grandfather Cancer Mother's Sister Mental illness Mother's Brother Cancer Mother's Brother Melanoma Neg Hx Past Medical History: Diagnosis Date Abdominal migraine (CMS/HCC) Melanoma (CMS/HCC) abdomen Miscarriage 02/13/2021 Night terrors, adult Personal history of medical treatment left ankle tendon/ligment damage Placenta previa 2018 Sleep-related enuresis Spontaneous Past Surgical History: Procedure Laterality Date DILATION AND CURETTAGE OF UTERUS 02/18/2021 MALIGNANT SKIN LESION EXCISION Melanoma abdomen Visit Vitals BP 122/84 Pulse 84 Resp 16 Wt 187 lb 3.2 oz SpO2 97% BMI 33.16 kg/m Smoking Status Never BSA 1.94 m Review of Systems Constitutional: Positive for fatigue. Negative for chills and fever. Respiratory: Negative for cough, shortness of breath and wheezing. Cardiovascular: Negative for chest pain and palpitations. Gastrointestinal: Negative for abdominal pain, constipation, diarrhea, nausea and vomiting. Skin: Negative for rash. Endocrine: Hair loss Objective Physical Exam Constitutional: General: She is not in acute distress. Appearance: She is well-developed. She is obese. HENT: Head: Normocephalic and atraumatic. Eyes: General: No scleral icterus. Conjunctiva/sclera: Conjunctivae normal. Cardiovascular: Rate and Rhythm: Normal rate and regular rhythm. Heart sounds: Normal heart sounds. No murmur heard. Pulmonary: Effort: Pulmonary effort is normal. No respiratory distress. Breath sounds: Normal breath sounds. No wheezing, rhonchi or rales. Skin: General: Skin is warm and dry. Neurological: General: No focal deficit present. Mental Status: She is alert and oriented to person, place, and time. Psychiatric: Mood and Affect: Mood normal. Behavior: Behavior normal. Assessment/Plan Diagnoses and all orders for this visit: Irritable bowel syndrome with diarrhea Xifaxan Prior Authorization is pending. Will notify pt of response once received. Obesity (BMI 30-39.9) - phentermine (Adipex-P) 37.5 MG tablet; Take 1 tablet (37.5 mg) by mouth in the morning. Take before meals. Patient has noted significant benefit from the medication. Clothes are fitting better and her body measurements are improving. Will continue the Adipex as prescribed. Denies s/e. Will see her back in one month for her second follow up. Encouraged her to continue with healthy diet and staying active. Positive JUSTICE (antinuclear antibody) Advised pt that her abnormal labs mean that she likely has an autoimmune disease called Lupus. Reviewed some of the common symptoms caused by Lupus. Encouraged pt to keep her follow up with Rheumatology as scheduled. Vitamin D deficiency Start Vitamin D supplement as prescribed. Follow up in about 4 weeks (around 06/24/2023) for Medication Follow Up. documented in this encounter [facility] 05-25-2023 History of Present illness Narrative Images from the original note were not included. [facility] HEMATOLOGY PEDIATRIC THROMBOPHILIA Dr.Dagmar Goldie Fabian OUTPATIENT FOLLOW- UP NOTE: [facility] Patient ID: Jannette Wong, 28 y.o. female PCP: MORENA GIRON : 1995 CHIEF COMPLAINT: Chief Complaint Patient presents with Follow-up HISTORY OF PRESENT ILLNESS: Jannette Wong is a 27 y.o. female with history of depression, scoliosis, past iron deficiency, migraines, and other health problems who presents today for hematology follow-up. She was last seen in 08/2022. Her iron labs were good at that time. She was found to have vitamin B12 deficiency and vitamin-D deficiency. She was placed on supplementation. She thinks she took this for 3 months. She was then lost to follow-up (3 month follow-up had previously been recommended). She reports that her menstrual bleeding has been controlled with OCPs and TXA. She does remain on oral iron at times. She does get some rare nose bleeds proximally twice per week they last for less than 5 minutes. She has been having some foggy thinking and headaches. She also reports some blurred vision. No other major complaints today. She is here today with her sister. PAST HEMATOLOGY HISTORY: Oncology History No history exists. ISTH Bleeding Assessment Tool: Cristian Petit J Thromb Haemost. 2010 Dec;8(9):2063-5. Total Score: 14 Abnormal ISTH BAT cutoff: Men >3 and Women >5 Santiago et al Haemophilia. 2014 Feb;20(6):831-5. REVIEW OF SYSTEMS: Complete 10-point ROS is negative except as mentioned in HPI. PAST MEDICAL HISTORY: Past Medical History: Diagnosis Date Abdominal migraine Dx by [facility]> resolved Anemia affecting in third trimester Chlamydia Depression Habitual aborter Melanoma ([facility]) 2019 stomach legs left breast, no further tx just removal Ovarian cyst Scoliosis Varicella PAST SURGICAL HISTORY: Past Surgical History: Procedure Laterality Date DILATION AND CURETTAGE OF UTERUS SKIN BIOPSY PAST FAMILY HISTORY: Family History Problem Relation Age of Onset Heart disease Paternal Grandfather Heart disease Paternal Grandmother Diabetes Paternal Grandmother Cancer Maternal Grandmother ovarian/uterine Ovarian cancer Maternal Grandmother Cause of No Known Problems Maternal Grandfather No Known Problems Father Kidney disease Mother Gitelman's syndrome Asthma Sister Migraines Sister Ovarian cancer Maternal Aunt Ovarian cancer Maternal Aunt Spina bifida Cousin Spina bifida Cousin Ovarian cancer Other Breast cancer Neg Hx Colon cancer Neg Hx Uterine cancer Neg Hx SOCIAL HISTORY: Lives in [place], [place]. Has children. 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 Social Determinants of Health Financial Resource Strain: Low Risk (01/14/2021) Overall Financial Resource Strain (CARDIA) Difficulty of Paying Living Expenses: Not hard at all Food Insecurity: No Food Insecurity (05/25/2023) Hunger Screening Food Insecurity - Worry: Never True Food Insecurity - Inability: Never True Transportation Needs: Unknown (01/14/2021) PRAPARE - Transportation Lack of Transportation (Medical): No Lack of Transportation (Non-Medical): Not on file Physical Activity: Not on file Stress: Not on file Social Connections: Not on file Interpersonal Safety: Not At Risk (01/14/2021) Humiliation, Afraid, Rape, and Kick questionnaire Fear of Current or Ex-Partner: No Emotionally Abused: No Physically Abused: No Sexually Abused: No Housing Instability: Not on file MEDICATIONS: Current Outpatient Medications on File Prior to Visit Medication Sig Dispense Refill norethindrone-e.estradioL-iron (JUNEL FE 05/08, ,) 1 mg-20 mcg (21)/75 mg (7) per tablet Take 1 tablet by mouth in the morning. 28 tablet 12 phentermine (ADIPEX-P) 37.5 mg tablet Take 1 tablet (37.5 mg total) by mouth every morning before breakfast. SUMAtriptan (IMITREX) 25 mg tablet Take 1 tablet (25 mg total) by mouth every 12 (twelve) hours. No current facility-administered medications on file prior to visit. ALLERGIES: Allergies Allergen Reactions Codeine Swelling Facial swelling with Tylenol with Codeine. Can take Tylenol by itself. Lactose Intolerance (Lactase) [Lactase] GI Disturbance PHYSICAL EXAMINATION: Vital signs: BP 128/82 (BP Site: Right Arm, BP Postition: Sitting) Pulse 86 Ht 160 cm (5' 3 ) Wt 85.1 kg (187 lb 9.8 oz) LMP 05/09/2023 (Exact Date) BMI 33.23 kg/m General appearance: alert, no acute distress. HEENT: supple] CV: RRR, no murmurs PULM: CTAB, no wheezing ABD: soft, NT/ND EXT: No edema. LABORATORY DATA: Lab Results Component Value Date WBC 11.3 (H) 04/28/2023 HGB 14.2 04/28/2023 HCT 41.9 04/28/2023 MCV 90 04/28/2023 PLT 545 (H) 04/28/2023 Lab Results Component Value Date GLU 112 (H) 02/06/2022 CALCIUM 8.6 02/06/2022 SODIUM 139 02/06/2022 K 3.4 (L) 02/06/2022 CO2 26 02/06/2022 BUN 4 (L) 02/06/2022 CREATININE 0.48 02/06/2022 Lab Results Component Value Date ALT 8 02/06/2022 AST 10 02/06/2022 ALKPHOS 116 02/06/2022 Lab Results Component Value Date INR 1.1 08/25/2022 INR 1.1 08/07/2020 PROTIME 12.7 08/25/2022 PROTIME 13.0 08/07/2020 Lab Results Component Value Date IRON 84 04/28/2023 TIBC 475 (H) 04/28/2023 FERRITIN 160 04/28/2023 IMAGING: Reviewed in [employer] BILLING: Total time spent was 35 minutes: Preparing to see the patient (e.g., review of tests) Obtaining and/or reviewing separately obtained history Performing a medically appropriate examination and/or evaluation Counseling and educating the patient/family/caregiver Ordering medications, tests, or procedures Documenting clinical information in the electronic or other health record ASSESSMENT: Jannette Wong is a 27 y.o. female with history of depression, scoliosis, and other health problems who presents today for hematology follow-up due to iron deficiency. 1. Thrombocytosis: 2018 Platelets 325-447 range. Had delivery on 04/01/2018. 07/2020 Platelets 489 02/2021 Platelets 492 2021 08/2021 Platelets 465, referred to hematology 11/2021 I saw her in consultation. Repeat labs showed platelets of 367. Iron studies were low with ferritin of 4. Placed on oral iron. 12/2021 Platelets 400 01/2022 Platelets 304 02/2022 Platelets 315 05/2022 Platelets 388 08/2022 Platelets 431 04/2023 Platelets 545 Here today for follow-up. We discussed her history in detail at past visits as summarized above. We discussed multiple things today and at past visits as listed below. First, we had discussed bone marrow production of blood cells at past visits. We had discussed platelets. We had discussed the role of platelets in the body. Second, he had discussed her labs. She had a thrombocytosis. This then improved. She is now developed recurrent thrombocytosis on last blood check. Second, we had discussed the cause of her thrombocytosis. We had discussed that a primary thrombocytosis disorder such as essential thrombocytosis, seemed unlikely. Given her recurrent thrombocytosis, we will check a JAK2 V617F mutation to start workup for essential thrombocytosis. We had discussed secondary causes of thrombocytosis. She has no clear infectious or inflammatory problems. We thought that her thrombocytosis with potentially related iron deficiency, but her platelets had normalized on last visit without any iron supplementation and then went back up. Will check ESR and CRP. 2. History of iron deficiency anemia: 2017 Hgb 8-13 range, ferritin 6. Had at that time. Given one dose of injectafer on 03/31/2018. Had delivery on 04/01/2018. Had several miscarriages in [id number]. Had heavy menstrual bleeding. Had been placed on oral iron BID for 2 weeks (likely every few months) through her primary care office. 2021 08/2021 Referred to hematology 11/2021 I saw her in consultation. Iron studies were low with ferritin of 4. Placed on oral iron. 12/2021 Hgb 10.6, ferritin 7 -01/2022 Given venofer 200mg x 5 doses. Had improvement in symptoms. 01/2022 Hgb 11.8 02/2022 Hgb 11.4, had delivery 05/2022 Hgb 13.0, ferritin 45 05/2022 Given injectafer x 1. [place] better for 6 weeks afterwards, but then developed recurrent symptoms 08/2022 Hgb 13.8, ferritin 181 04/2023 Hgb 14.2, ferritin 160 Here today for follow-up. She had iron deficiency anemia in 2018 and required IV iron. She has had multiple pregnancies, bleeding, and heavy menstrual bleeding since then. She was then found to be iron deficient during her . She is placed on oral iron without significant improvement her labs. She has ultimately given intravenous iron in -01/2022. She had improvement her symptoms. However, she then had blood loss with her delivery in resumption menstrual periods. Repeat labs showed resolution of anemia, but borderline iron deficiency. She was given further iron infusion in 05/2022 which resulted in a temporary improvement in symptoms. We will have her continue with oral iron to try and help maintain iron stores given ongoing menorrhagia. Her repeat labs since have shown normal hemoglobin with normal iron stores. May need to consider repeat IV iron, if ferritin is below 50-100. We will check inflammatory markers today to make sure that ferritin is not falsely elevated due to inflammation. We had discussed ways to limit menstrual bleeding. She is already on OCPs. Continue with TXA which seems to be helping; refilled. 3. Vitamin B12 deficiency: She was found have vitamin B12 deficiency in 08/2022 with level of 142. She was placed on oral supplementation for 3 months and then was lost to follow-up. We will check repeat B12 level today. I do not see a clear reason why she will be B12 deficient. We will check for pernicious anemia and celiac disease. Apparently, her mother and son also have B12 deficiency. 4. Vitamin D deficiency: She was found have vitamin D deficiency in 08/2022 with level of 9.6. She was placed on oral supplementation for a few months and then was lost to follow-up. We will check repeat vitamin D level today. 5. Concern for bleeding diathesis: Past bleeding includes epistaxis and menorrhagia. No family history of bleeding diathesis. Her ISTH bleeding assessment score was 14 which was way above the cutoff for abnormal bleeding in a woman. We did workup for bleeding diathesis 08/2022 which was unremarkable. 6. History of recurrent miscarriages: Had hypercoagulable testing in the past which was mostly unremarkable except for an MTHFR variant. APS labs negative in the past. Not discussed today. 7. Family history of Gitelman syndrome: It sounds like this is autosomal recessive, so seems less likely. We will check potassium, magnesium, renin, and aldosterone level today. RECOMMENDATIONS: - Check labs today (CBC, iron studies, b12, folic acid, vitamin-D level, pernicious anemia testing, celiac disease testing, ESR, CRP, JAK2, JUSTICE, etc). - Will contact patient with results. - No signs of recurrent iron deficiency. No indication for IV iron at this time. - Can continue with oral iron to help maintain iron stores. Refilled. - Continue OCPs and TXA PRN for menorrhagia. - Will likely need to resume vitamin B12 and vitamin-D supplementation. This may help with her symptoms. - RTC in 3 months with repeat labs beforehand. Ryan Fabian MD Adult Wireless Network Engineer [facility] Pager: [phone] Pt. Here for follow-up with Dr. Fabian. C/O brain fog, fatigue, restless legs and chewing ice onset 2022. Has epistaxis 2 times per week lasting less that 5 minutes. Nosebleed Prevention & Treatment Sheet reviewed with patient. Periods LMP: 05/09/23 Duration: 2 days Changing protection Tampon every 2 hours BC: Junel Takes Lysteda for periods which has helped decrease bleeding. Needs refill. No upcoming surgeries or procedures. Dr. Fabian notified. documented in this encounter [facility] 04-15-2023 Miscellaneous Notes PC from pt stating that she is having anemia symptoms of feeling foggy. Appt scheduled for 05/25/23 at 3:30pm. Pt instructed to get labs day before appt at her local lab. She asked if she could get labs drawn today. [employer]ist [employer] told her she could and we would advise on labs at appt. documented in this encounter [facility] 04-15-2023 Telephone encounter Note PC from pt stating that she is having anemia symptoms of feeling foggy. Appt scheduled for 05/25/23 at 3:30pm. Pt instructed to get labs day before appt at her local lab. She asked if she could get labs drawn today. [employer]ist [employer] told her she could and we would advise on labs at appt. [facility] 03-10-2023 Note [facility] [employer] [facility] Toe Fracture A toe fracture is a break in one of the toe bones (phalanges). A toe fracture may be: ? A crack in the surface of the bone (stress fracture). This often occurs in athletes. ? A break all the way through the bone (complete fracture). What are the causes? This condition may be caused by: ? Direct impact, such as from dropping a heavy object on your toe. ? Stubbing your toe. ? Twisting or stretching your toe out of place. ? Overuse or repetitive exercise. What increases the risk? You are more likely to develop this condition if you: ? Play contact sports. ? Have a condition that causes the bones to become thin and brittle (osteoporosis). ? Have a low calcium level. What are the signs or symptoms? The main symptoms of this condition are swelling and pain in the toe. Other symptoms include: ? Bruising. ? Stiffness. ? Numbness. ? A change in the way the toe looks. ? Broken bones that poke through the skin. ? Blood beneath the toenail. How is this diagnosed? This condition is diagnosed with a physical exam. You may also have X-rays. How is this treated? Treatment for this condition depends on the type of fracture and its severity. Treatment may include: ? Taping the broken toe to a toe that is next to it (adrian taping). This is the most common treatment for fractures in which the bone has not moved out of place (non-displaced fracture). ? Wearing a shoe that has a wide, rigid sole to protect the toe and to limit its movement. ? Wearing a walking cast. ? Having a procedure to move the toe back into place. ? Surgery. This may be needed if the: ? Pieces of broken bone are out of place (displaced). ? Bone breaks through the skin. ? Physical therapy. This is done to help regain movement and strength in the toe. You may need follow-up X-rays to make sure that the bone is healing well and staying in position. Follow these instructions at home: If you have a shoe: ? Wear the shoe as told by your health care provider. Remove it only as told by your health care provider. ? Loosen the shoe if your toes tingle, become numb, or turn cold and blue. ? Keep the shoe clean and dry. If you have a cast: ? Do not put pressure on any part of the cast until it is fully hardened. This may take several hours. ? Do not stick anything inside the cast to scratch your skin. Doing that increases your risk of infection. ? Check the skin around the cast every day. Tell your health care provider about any concerns. ? You may put lotion on dry skin around the edges of the cast. Do not put lotion on the skin underneath the cast. ? Keep the cast clean and dry. Bathing ? Do not take baths, swim, or use a hot tub until your health care provider approves. Ask your health care provider if you can take showers. ? If the shoe or cast is not waterproof: ? Do not let it get wet. ? Cover it with a watertight covering when you take a bath or a shower. Activity ? Do not use the injured foot to support your body weight until your health care provider says that you can. Use crutches as directed. ? Ask your health care provider: ? What activities are safe for you during recovery. ? What activities you need to avoid. ? Do physical therapy exercises as directed. Driving ? Do not drive or use heavy machinery while taking pain medicine. ? Do not drive while wearing a cast on a foot that you use for driving. Managing pain, stiffness, and swelling ? If directed, put ice on painful areas: ? Put ice in a plastic bag. ? Place a towel between your skin and the bag. ? If you have a shoe, remove it as told by your health care provider. ? If you have a cast, place a towel between your cast and the bag. ? Leave the ice on for 20 minutes, 2?3 times per day. ? Raise (elevate) the injured area above the level of your heart while you are sitting or lying down. General instructions ? If your toe was treated with adrian taping, follow your health care provider's instructions for changing the gauze and tape. Change it more often if: ? The gauze and tape get wet. If this happens, dry the space between the toes. ? The gauze and tape are too tight and cause your toe to become pale or numb. ? If you were not given a protective shoe, wear sturdy, supportive shoes. Your shoes should not pinch your toes and should not fit tightly against your toes. ? Do not use any products that contain nicotine or tobacco, such as cigarettes and e-cigarettes. These can delay bone healing. If you need help quitting, ask your health care provider. ? Take tncs-kfe-vfmvhey and prescription medicines only as told by your health care provider. ? Keep all follow-up visits as told by your health care provider. This is important. Contact a health care provider if you have: ? Pain that gets worse or hu (more content not included)... [facility] Evaluation note Diagnosis Thrombocytosis, unspecified- Primary History of iron deficiency Vitamin D deficiency B12 deficiency Gitelman syndrome Disorders of magnesium metabolism Raynaud's disease without gangrene Menorrhagia with regular cycle [facility] Diagnosis Vitamin D deficiency- Primary B12 deficiency documented [facility] Diagnosis Irritable bowel syndrome with diarrhea- Primary Irritable bowel syndrome Obesity (BMI 30-39.9) Positive JUSTICE (antinuclear antibody) Other and unspecified nonspecific immunological findings Vitamin D deficiency documented in this encounter [facility]* Diagnosis Positive JUSTICE (antinuclear antibody)- Primary Other and unspecified nonspecific immunological findings Ds DNA antibody positive Migraine without aura and without status migrainosus, not intractable Other idiopathic scoliosis, unspecified spinal region Iron deficiency Disorders of iron metabolism Low serum vitamin D Low serum vitamin B12 documented in [facility] encounter [facility] Diagnosis Positive JUSTICE (antinuclear antibody)- Primary Other and unspecified nonspecific immunological findings Migraine without aura and without status migrainosus, not intractable Other idiopathic scoliosis, unspecified spinal region Iron deficiency Disorders of iron metabolism Low serum vitamin D Low serum vitamin B12 [facility] this [facility] Summary Purpose Family History No Family History Records FoundNo Family History Records FoundNo Family History Records FoundNo Family History Records FoundNo Family History Records FoundNo Family History Records Found Advance Directives No Advanced Directives Records FoundLatest Code Status on File Code Status Date Activated Date Inactivated Comments Full Code 03/07/2022 10:06 PM 03/10/2022 5:56 PM Code Status History Code Status Date Activated Date Inactivated Comments Full Code 02/24/2022 3:15 PM 02/24/2022 5:38 PM Full Code 01/26/2022 4:26 PM 01/26/2022 6:57 PM Full Code 01/21/2022 7:59 PM 01/21/2022 11:01 PM Full Code 04/01/2018 12:16 AM 2018 7:51 PM Additional Source Comments INFORMATION SOURCE (unrecogn ized section and content) DATE CREATED AUTHOR 05/13/2021 [facility] DATE CREATED AUTHOR AUTHOR'S ORGANIZ ATION 03/15/2023 [facility] DATE CREATED AUTHOR AUTHOR'S ORGANIZ ATION 04/04/2023 [facility] EP[facility] DATE CREATED AUTHOR AUTHOR'S ORGANIZ ATION 05/02/2023 [facility] DATE CREATED AUTHOR AUTHOR'S ORGANIZ ATION 08/27/2023 [facility] DATE CREATED AUTHOR AUTHOR'S ORGANIZ ATION 09/09/2023 [facility] EP[facility] Reason for Visit (unrecogniz ed section and content) Reason Onset Date Comments Appointment 04/15/2023 Reason Comments Follow-up Reason Comments Med Refill Phentermine, sumatri ptan Reason Comments New Patient Specialty Diagnoses / Procedures Referred By Contac t Referred To Contact Rheumatology Diagnoses Positive JUSTICE (antinuclear antibody) Ds DNA antibody positive Raynaud's disease without gangrene Ryan Fabian MD [address] [place] [address] [address] [place] [address] Ricardo Klein MD [address] [id number] Referral ID Status Reason Start Date Expiration Date Visits Requested Visits Authorized [id number] Pending Review Specialty Services Required 05/26/2023 05/25/2024 1 1 Care Teams (unrecognized sec tion and content) Carpet Cleaning Technician Relationship Specialty Start Date End Date Juliana Thorne PA [address] [place] [id number] PCP - General 11/24/17 Carpet Cleaning Technician Relationship Specialty Start Date End Date Juliana Thorne PA [address] [place] [id number] PCP - General 11/24/17 Carpet Cleaning Technician Relationship Specialty Start Date End Date Juliana Thorne PA [address] [place] [id number] PCP - General 11/24/17 Carpet Cleaning Technician Relationship Specialty Start Date End Date Anuel Peace MD [address] [facility] [address] [place] [address] PCP - General Internal Medicine 10/06/22 Carpet Cleaning Technician Relationship Specialty Start Date End Date Anuel Peace MD [address] [facility] [address] [place] [address] PCP - General Internal Medicine 10/06/22 Carpet Cleaning Technician Relationship Specialty Start Date End Date Juliana Thorne PA [address] [place] [address] PCP - General 11/24/17 Carpet Cleaning Technician Relationship Specialty Start Date End Date Juliana Thorne PA [address] [place] [address] PCP - General 11/24/17 FOR RECORDS PERTAINING TO PATIENTS WHO ARE OR HAVE BEEN ENROLLED IN A CHEMICAL DEPENDENCY/SUBSTANCEABUSE PROGRAM, SOME INFORMATION MAY BE OMITTED. This clinical summary was aggregated from multiple sources. Caution should be exercised in using it in the provision of clinical care. This summary normalizes information from multiple sources, and as a consequence, information in this document may materially change the coding, format and clinical context of patient data. In addition, data may be omitted in some cases. CLINICAL DECISIONS SHOULD BE BASED ON THE PRIMARY CLINICAL RECORDS. [employer] [facility]. provides no warranty or guarantee of the accuracy or completeness of information in this document.
[2023-09-12 19:55] VITALS: BP 121/66; PULSE 71; TEMP 36.6; O2SAT 99; BMI 33.7
--- NOTE | 2023-09-12 20:09 | ECG_ITS ---
[facility] Test Date: 2023-09-12 Pat Name: JANNETTE LY Department: Room: - Gender: Female [employer] Specialist: : 1995 Requested By: [id number] Order Number: [id number] Reading MD: DAJUAN ESTEBAN Measurements Intervals [place] Rate: 85 P: 35 CO: 116 QRS: 36 QRSD: 84 T: 28 QT: 364 QTc: 406 Interpretive Statements 1100 Sinus rhythm 2210 Short CO interval Anteroseptal ST/T wave changes are nonspecific 9150 abnormal ECG No previous ECG available for comparison Electronically Signed On 09-14-2023 8:49:28 EDT by DAJUAN ESTEBAN
--- NOTE | 2023-09-12 20:11 | ED.ABDPAIN1 ---
HPI - Abdominal Pain General Chief Complaint: Abdominal Pain Stated Complaint: Lower Abdominal Pain Time Seen by Provider: 09/12/23 19:47 Source: patient Mode of arrival: walk-in Limitations: no limitations History of Present Illness HPI narrative: This 28-year-old female who was seen recently for right lower quadrant abdominal pain and found to have a small ovarian cyst on the left presents for evaluation of recurrent left lower quadrant abdominal pain. The patient states she has been having sweats all day. She felt that she had to go to the bathroom prior to coming to the emergency department and was walking into her bathroom when she felt a sudden sharp pain in her left lower quadrant and passed out. She states she woke up on the floor and her daughter was patting her head. Her son then called her sister to bring her to the emergency department. She does not smoke or drink. She denies the possibility of however she has recently missed a menstrual period. She denies any chest pain or shortness of breath. She has no lower extremity pain or swelling. She denies any dysuria or hematuria. She doubts the possibility of . She has no chest pain or back pain. She does have some chronic right sacroiliac area pain but this is unchanged. Related Data Home Medications ?Medication ?Instructions ?Recorded ?Confirmed amoxicillin 875 mg-potassium 1 tab PO Q12H 12/19/22 12/19/22 clavulanate 125 mg tablet benzonatate 200 mg capsule 200 mg PO TID PRN cough 12/19/22 12/19/22 methylprednisolone 4 mg tablets in 4 mg PO . DIRECTED 12/19/22 12/19/22 a dose pack Allergies Allergy/AdvReac Type Severity Reaction Status Date / Time codeine Allergy Severe Verified 09/12/23 19:59 Review of Systems ROS Status of ROS 10 or more systems reviewed and unremarkable except as noted in history and below Exam Narrative Exam Narrative: Vital signs and Nursing Notes reviewed: Vital signs are stable, she is afebrile with a normal pulse, normal blood pressure she is not hypoxic with pulse ox of 99% on room air General: Awake, alert, oriented, no acute distress, lying comfortably on the stretcher HEENT: Normocephalic atraumatic, mucous membranes are moist and pink, eyes are clear, normal conjunctiva, vision is grossly intact, posterior pharynx is normal in appearance. Neck: Supple, no meningeal signs, no anterior or posterior cervical lymphadenopathy Chest: Lungs are clear to auscultation with good air entry, there is no wheezing rhonchi or rales appreciated no accessory muscle use, patient is speaking in complete sentences-no chest wall tenderness to palpation CVS: Regular rate and rhythm S1-S2, no murmurs rubs or gallops, pulses are brisk and equal bilaterally ABD: Soft, nondistended, tenderness in the left lower quadrant with voluntary guarding. There is no tenderness over the bladder or McBurney's point Extremities: Moving all extremities, no lower extremity tenderness or swelling noted, negative Homans' sign, pulses are brisk and equal bilaterally Skin: Skin is flushed without rash,pallor, petechiae or purpura Neuro: No focal deficits Constitutional Vital Signs, click to edit/add: Last Vital Signs Temp 98 F 09/12/23 19:55 Pulse 71 09/12/23 19:55 Resp 18 09/12/23 19:55 BP 121/66 09/12/23 19:55 Pulse Ox 99 09/12/23 19:55 O2 Del Method Room Air 09/12/23 19:55 Course Vital Signs Vital signs: Vital Signs Temperature 98 F 09/12/23 19:55 Pulse Rate 71 09/12/23 19:55 Respiratory Rate 18 09/12/23 19:55 Blood Pressure 121/66 09/12/23 19:55 Pulse Oximetry 99 09/12/23 19:55 Oxygen Delivery Method Room Air 09/12/23 19:55 Temperature 98 F 09/12/23 19:55 Pulse Rate 71 09/12/23 19:55 Respiratory Rate 18 09/12/23 19:55 Blood Pressure 121/66 09/12/23 19:55 Pulse Oximetry 99 09/12/23 19:55 Oxygen Delivery Method Room Air 09/12/23 19:55 MDM - Abdominal Pain MDM Narrative Medical decision making narrative: This 28-year-old female presents for evaluation of left lower quadrant abdominal pain that started just prior to arrival. She states she was getting up to go to the bathroom and passed out at home due to the sudden onset of sharp left lower quadrant abdominal pain. She was seen here on [address] scan done an ultrasound. At that time she presented with right lower quadrant abdominal pain. Her ultrasound at that time showed 2 left-sided ovarian cysts and was otherwise normal. The patient out the possibility of but has missed her menstrual period. She has not had a fever but does appear to be flushed. She has had kidney infections in the past as well but denies any new or worsening flank pain. She has no nausea or vomiting. Due to the fact that she passed out I ordered an EKG which was a normal sinus rhythm with a short HI interval at 85 bpm. An IV was placed and she was medicated with IV fluids Zofran and Toradol. Routine labs are reviewed. She has a normal white count and hemoglobin. Electrolytes are normal with a mildly low potassium at 3.2. Her potassium was 2.9 last week. She has a normal troponin and D-dimer. Urine is negative for infection but does show a few red blood cells and white blood cells. CT scan of the abdomen pelvis was reordered due to the severe nature of the lower abdominal pain which caused her to pass out. CT scan of the abdomen pelvis which is included in the body of this report does not show any acute findings besides some ovarian cyst that appear to be similar to the last CT scan. This was discussed with her. She verbalized understanding. 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 I discussed her potassium with her. It was 2.9 last week and I gave her a Rx for potassium that she admits to not filling but states she will fill it tomorrow. Medical Records Medical records narrative: The [address] [address] Patient Name: JANNETTE LY MRN: [id number] date: 1995 Sex: F Assigned Patient Location: Current Patient Location: Accession/Order Number: [id number] Exam Date: 09/08/2023 21:39 Report Date: 09/08/2023 23:05 At the request of: NETTIE MARKER Procedure: US pelvis transvaginal EXAM: US pelvis transvaginal HISTORY: R/O ovarian cyst COMPARISON: Correlation is made with CT abdomen and pelvis examination of the same date. TECHNIQUE: Real time pelvic ultrasound examination was performed using Duplex Doppler by a transvaginal approach. FINDINGS: The uterus is normal in size measuring 8.7 cm in length. There is a 0.8 x 0.7 x 0.9 cm suspected anterior uterine body fibroid. The endometrium is within normal limits with the stripe measuring up to 0.3 cm in thickness. A small amount of endometrial fluid is seen. The right ovary measures 3.1 x 1.8 x 2.1 cm, and the left ovary measures 4.1 x 2.4 x 2.4 cm. Arterial and venous blood flow is seen in both ovaries. There is a left ovarian follicle measures 2.7 x 2.1 x 2.3 cm. There is no significant free fluid. Prominent vessels are seen in the right hemipelvis. IMPRESSION: 1. Small left ovarian follicle without evidence of torsion. 2. Small uterine body fibroid. 3. Prominent vessels in the right hemipelvis which can be seen with pelvic congestion syndrome. 4. Small amount of fluid in the endometrial canal. Electronically authenticated by: Dennis MOSELEY Date: 09/08/2023 23:05 [email or web address]?file=#[email or web address]?file=#page=2 Find: Highlight all Match case Current View [email or web address]?file=#[email or web address]&zoom=auto,-14,153 Page: of 2 Current View [email or web address]?file=#[email or web address]&zoom=auto,-13,751 [place] [id number] Patient Name: JANNETTE LY MRN: [id number] date: 1995 Sex: F Assigned Patient Location: ER Current Patient Location: ER Accession/Order Number: [id number] Exam Date: 09/08/2023 20:53 Report Date: 09/08/2023 22:00 At the request of: NETTIE MARKER Procedure: CT abdomen pelvis w con CT ABDOMEN AND PELVIS WITH CONTRAST: INDICATION: Right lower quadrant pain. COMPARISON: None. TECHNIQUE: Helical CT images of the abdomen and pelvis were obtained after the administration of intravenous contrast. Dose reduction techniques were achieved by using automated exposure control and/or adjustment of mA and/or kV according to patient size and/or use of iterative reconstruction technique. FINDINGS: LOWER CHEST: The visualized lung bases are clear. LIVER: There is hepatomegaly and diffuse hepatic steatosis. GALLBLADDER AND BILIARY SYSTEM: Unremarkable. SPLEEN: Unremarkable. PANCREAS: Unremarkable. ADRENAL GLANDS: Unremarkable. KIDNEYS AND URETERS: The kidneys enhance symmetrically. There is no hydronephrosis. No focal renal lesions. BLADDER: Under distended. GASTROINTESTINAL TRACT: No evidence of bowel obstruction or colitis. Normal appendix. VASCULATURE: Unremarkable. RETROPERITONEUM AND LYMPH NODES: No lymphadenopathy or mass. PERITONEUM/MESENTERY: No abdominal ascites. No free air. PELVIS: There are left ovarian cysts measuring 3.1 x 2.7 cm and 2.2 x 1.9 cm. No pelvic ascites or lymphadenopathy. BODY WALL: Unremarkable. BONES: Degenerative changes of the sacroiliac joints bilaterally. IMPRESSION: 1. Left ovarian cysts. 2. Fatty liver. Electronically authenticated by: AYUSH CHIANG Date: 09/08/2023 22:00 [place] [address] CT Scan Report Signed Patient: JANNETTE LY MR#: [id number] : 1995 Acct:[id number] Age/Sex: 28 / F ADM Date: 09/12/23 Loc: ER Attending Dr: Ordering Physician: Nettie Mccloud Date of Service: 09/12/23 Procedure(s): CT abdomen pelvis w con Accession Number(s): [id number] cc: WM THORNE [place] [id number] Patient Name: JANNETTE LY MRN: [id number] date: 1995 Sex: F Assigned Patient Location: ER Current Patient Location: ER Accession/Order Number: [id number] Exam Date: 09/12/2023 22:22 Report Date: 09/12/2023 23:39 At the request of: NETTIE MCCLOUD Procedure: CT abdomen pelvis w con EXAM: CT abdomen pelvis w con HISTORY: LLQ abd pain COMPARISON: CT abdomen and pelvis examination dated 09/08/2023. TECHNIQUE: Axial CT images through the abdomen and pelvis were obtained after the intravenous administration of contrast. Coronal and sagittal reformats were obtained. Dose reduction techniques were achieved by using automated exposure control and/or adjustment of mA and/or kV according to patient size and/or use of iterative reconstruction technique. FINDINGS: The visualized portions of the lung bases are clear. There is a small hiatal hernia. Abdomen: There is suspected focal fatty deposition along the falciform ligament. There are a couple subcentimeter hypodensities in the liver that are too small to characterize by CT size criteria. Otherwise, the liver and spleen enhance homogeneously without focal lesion. There is no intra or extrahepatic biliary duct dilatation. The gallbladder is unremarkable. The pancreas, adrenal glands, kidneys, and bowel loops, including the appendix, are unremarkable. There is no mesenteric or retroperitoneal lymphadenopathy. Pelvis: The bladder demonstrates wall thickening. The rectum is unremarkable. There is no iliac or inguinal lymphadenopathy. The uterus is present. The right ovary appears within normal limits by CT. There are a couple right adnexal cystic structures measuring up to 2.7 x 2.8 cm (series 3, image 123). Bone windows show no aggressive osseous lesions. CT/CT abdomen pelvis w con IMPRESSION: 1. No specific etiology identified to explain the patient's abdominal pain. 2. Left ovarian cysts that appear similar compared to prior examination. 3. Normal appendix. 4. Urinary bladder wall thickening. Please correlate with urinalysis for infection. Lab Data Labs: Lab Results 09/12/23 09/12/23 Range/Units 20:28 20:30 WBC 11.5 H (4.0-11.0) 10^3/uL RBC 4.50 (4.20-5.40) 10^6/uL Hgb 13.5 (12.0-16.0) g/dL Hct 40.6 (36.0-48.0) % MCV 90.2 (81.0-99.0) fL MCH 30.0 (26.7-34.0) pg MCHC 33.3 (29.9-35.2) g/dL RDW 11.9 (11.0-15.0) % Plt Count 462 H (150-450) 10^3/uL MPV 8.6 L (9.5-13.5) fL Neut % (Auto) 53.1 (43.0-75.0) % Lymph % (Auto) 36.8 (20.5-60.0) % [place] % (Auto) 6.4 (1.7-12.0) % Eos % (Auto) 1.7 (0.9-7.0) % Baso % (Auto) 0.8 (0.2-2.0) % Neut # (Auto) 6.1 (1.4-6.5) 10^3/uL Lymph # (Auto) 4.2 H (1.2-3.8) 10^3/uL [place] # (Auto) 0.7 (0.3-0.8) 10^3/uL Eos # (Auto) 0.2 (0.0-0.7) 10^3/uL Baso # (Auto) 0.1 (0.0-0.1) 10^3/uL Abs Immat Gran (auto) 0.14 H (0.00-0.03) 10^3/uL Imm/Tot Granulo (auto) 1.2 H (0.0-0.5) % D-Dimer 0.25 (<=0.59) mg/L FEU Sodium 139 (136-145) mmol/L Potassium 3.2 L (3.5-5.1) mmol/L Chloride 101 (98-107) mmol/L Carbon Dioxide 27.3 (21.0-32.0) mmol/L Anion Gap 13.9 BUN 8.0 (7.0-18.0) mg/dL Creatinine 0.85 (0.55-1.02) mg/dL Est GFR ( Amer) >60 (>=60) Est GFR (Non-Af Amer) >60 (>=60) BUN/Creatinine Ratio 9.4 Glucose 107 H (74-106) mg/dL Calcium 8.7 (8.5-10.1) mg/dL Total Bilirubin 0.3 (0.2-1.0) mg/dL AST 25 (15-37) U/L ALT 30 (14-59) U/L Alkaline Phosphatase 97 (46-116) U/L Troponin I High Sens <4.0 L (4.0-51.3) pg/mL Total Protein 8.4 H (6.4-8.2) g/dL Albumin 3.8 (3.4-5.0) g/dL Globulin 4.6 g/dL Albumin/Globulin Ratio 0.8 Urine Color Yellow (YELLOW) Urine Clarity Clear (CLEAR) Urine pH 6.0 (5.0-9.0) Ur Specific Buckner >=1.030 A (1.005-1.025) Urine Protein Negative (NEG/TRACE) mg/dL Urine Glucose (UA) Negative (NEGATIVE) mg/dL Urine Ketones Negative (NEGATIVE) mg/dL Urine Occult Blood Large A (NEGATIVE) Urine Nitrite Negative (NEGATIVE) Urine Bilirubin Negative (NEGATIVE) Urine Urobilinogen 0.2 (0.2-1.0) EU/dL Ur Leukocyte Esterase Negative (NEGATIVE) Urine RBC 2-5 A (0-2) #/HPF Urine WBC 2-5 A (NONE SEEN) #/HPF Ur Squamous Epith Cells Few A (NONE/RARE) #/LPF Urine Crystals None seen (None Seen) #/HPF Amorphous Sediment Few Urine Bacteria None seen (NONE SEEN) #/HPF Urine Casts None seen (NONE SEEN) #/LPF Urine Mucus Small A (NONE SEEN) Ur Culture Indicated? No Urine HCG, Qual Negative (NEGATIVE) ECG Data Attestation: I personally reviewed and interpreted this ECG as follows: (Sinus rhythm 85 bpm short HI interval at 116 ms, normal axis, no acute ST segment elevation or T wave inversion) Discharge Plan Discharge Stand Alone Forms: Portal Instructions Chief Complaint: Abdominal Pain Clinical Impression: Follicular cyst of ovary, Syncope, Abdominal pain, Hypokalemia Patient Disposition: Home, Self-Care Time of Disposition Decision: 00:12 Condition: Good Prescriptions / Home Meds: No Action amoxicillin-pot clavulanate 875-125 mg tablet 1 tab PO Q12H Patient Comments: STARTED 12/17 X 10DAYS benzonatate 200 mg capsule 200 mg PO TID PRN (Reason: cough) Patient Comments: STARTED 12/17 X 10 DAYS methylprednisolone 4 mg tablets,dose pack 4 mg PO . DIRECTED Patient Comments: STARTED ON 12/17 X 6 DAYS Print Language: Hebrew Instructions: Ovarian Cyst (ED), Potassium Content of Foods List (ED), Hypokalemia (ED), Syncope (ED), Abdominal Pain (ED) Referrals: WM THORNE [Primary Care Provider] - 1 week
[2023-09-12] MEDS: 0.9 % SODIUM CHLORIDE 1,000 ML 1000 ML IV (20:35)
[2023-09-12 20:36] LABS: Bilirubin Urine NEGATIVE (NEGATIVE); Blood Urine LARGE (NEGATIVE); Clarity Urine CLEAR (CLEAR); Color Urine YELLOW (YELLOW); Glucose Urine UA NEGATIVE (NEGATIVE); Ketones Urine NEGATIVE (NEGATIVE); Leukocyte Esterase Urine NEGATIVE (NEGATIVE); Nitrite Urine NEGATIVE (NEGATIVE); Protein Urine NEGATIVE (NEG/TRACE); Specific Gravity Urine >=1.030 (1.005-1.025); Urobilinogen Urine 0.2 EU/dL (0.2-1.0)
[2023-09-12] MEDS: ONDANSETRON PF 4 MG/2 ML VIAL IV (20:36)
[2023-09-12] MEDS: KETOROLAC TROMETHAMINE 30 MG/ML VIAL IVP (20:36)
[2023-09-12 20:38] LABS: HCG Qualitative Urine* NEGATIVE (NEGATIVE)
[2023-09-12 20:42] LABS: Basophils Absolute Auto 0.1 10^3/uL (0.0-0.1); Basophils Percent Auto 0.8 % (0.2-2.0); Eosinophils Absolute Auto 0.2 10^3/uL (0.0-0.7); Eosinophils Percent Auto 1.7 % (0.9-7.0); Hematocrit 40.6 % (36.0-48.0); Hemoglobin 13.5 g/dL (12.0-16.0); Immature Granulocytes Abs Auto 0.14 10^3/uL (0.00-0.03); Immature Granulocytes Pct Auto 1.2 % (0.0-0.5); Lymphocytes Absolute Auto 4.2 10^3/uL (1.2-3.8); Lymphocytes Percent Auto 36.8 % (20.5-60.0); Mean Corpuscular HGB Conc 33.3 g/dL (29.9-35.2); Mean Corpuscular Volume 90.2 fL (81.0-99.0); Mean Platelet Volume 8.6 fL (9.5-13.5); Monocytes Absolute Auto 0.7 10^3/uL (0.3-0.8); Monocytes Percent Auto 6.4 % (1.7-12.0); Neutrophils Absolute Auto 6.1 10^3/uL (1.4-6.5); Neutrophils Percent Auto 53.1 % (43.0-75.0); Platelet Count 462 10^3/uL (150-450); Red Cell Distribution Width 11.9 % (11.0-15.0); White Blood Count 11.5 10^3/uL (4.0-11.0)
[2023-09-12 20:52] LABS: Alanine Aminotransferase 30 U/L (14-59); Albumin Globulin Ratio 0.8; Albumin Level 3.8 g/dL (3.4-5.0); Alkaline Phosphatase 97 U/L (46-116); Anion Gap 13.9; Aspartate Amino Transferase 25 U/L (15-37); BUN Creatinine Ratio 9.4; Bilirubin Total 0.3 mg/dL (0.2-1.0); Calcium 8.7 mg/dL (8.5-10.1); Carbon Dioxide 27.3 mmol/L (21.0-32.0); Chloride 101 mmol/L (98-107); Estimated GFR (African America >60 (>=60); Estimated GFR (Non-African Ame >60 (>=60); Globulin 4.6 g/dL; Glucose 107 mg/dL (74-106); Potassium 3.2 mmol/L (3.5-5.1); Sodium 139 mmol/L (136-145); Total Protein 8.4 g/dL (6.4-8.2)
[2023-09-12 20:57] LABS: Troponin I High Sensitivity <4.0 pg/mL (4.0-51.3)
[2023-09-12 21:02] LABS: Bacteria Urine NONE SEEN #/HPF (NONE SEEN); Mucus Urine SMALL (NONE SEEN)
[2023-09-12 21:03] LABS: Amorphous Sediment Urine FEW; Cast Seen? NONE SEEN #/LPF (NONE SEEN); Crystals Seen? None Seen #/HPF (None Seen); Squamous Epithelial Cell Urine FEW #/LPF (NONE/RARE); Urine Culture Indicated NO
[2023-09-12 21:06] LABS: D Dimer 0.25 mg/L FEU (<=0.59)
--- NOTE | 2023-09-12 21:36 | CT_ITS ---
The [address] [address] Patient Name: JANNETTE LY MRN: [id number] date: 1995 Sex: F Assigned Patient Location: ER Current Patient Location: ER Accession/Order Number: [id number] Exam Date: 09/12/2023 22:22 Report Date: 09/12/2023 23:39 At the request of: ADELA MARKER Procedure: CT abdomen pelvis w con EXAM: CT abdomen pelvis w con HISTORY: LLQ abd pain COMPARISON: CT abdomen and pelvis examination dated 09/08/2023. TECHNIQUE: Axial CT images through the abdomen and pelvis were obtained after the intravenous administration of contrast. Coronal and sagittal reformats were obtained. Dose reduction techniques were achieved by using automated exposure control and/or adjustment of mA and/or kV according to patient size and/or use of iterative reconstruction technique. FINDINGS: The visualized portions of the lung bases are clear. There is a small hiatal hernia. Abdomen: There is suspected focal fatty deposition along the falciform ligament. There are a couple subcentimeter hypodensities in the liver that are too small to characterize by CT size criteria. Otherwise, the liver and spleen enhance homogeneously without focal lesion. There is no intra or extrahepatic biliary duct dilatation. The gallbladder is unremarkable. The pancreas, adrenal glands, kidneys, and bowel loops, including the appendix, are unremarkable. There is no mesenteric or retroperitoneal lymphadenopathy. Pelvis: The bladder demonstrates wall thickening. The rectum is unremarkable. There is no iliac or inguinal lymphadenopathy. The uterus is present. The right ovary appears within normal limits by CT. There are a couple right adnexal cystic structures measuring up to 2.7 x 2.8 cm (series 3, image 123). Bone windows show no aggressive osseous lesions. CT/CT abdomen pelvis w con IMPRESSION: 1. No specific etiology identified to explain the patient's abdominal pain. 2. Left ovarian cysts that appear similar compared to prior examination. 3. Normal appendix. 4. Urinary bladder wall thickening. Please correlate with urinalysis for infection. Electronically authenticated by: Dennis MOSELEY Date: 09/12/2023 23:39
[2023-09-13 00:26] VITALS: BP 105/70
== END 2023-09-13 00:31 | disposition home or self-care (01) ==
PROVIDERS: Emergency Provider Emergency Medicine; PCP Physician Assistant
DX: N83.02 Follicular cyst of left ovary (principal); E87.6 Hypokalemia; R55 Syncope and collapse; R10.9 Unspecified abdominal pain
CPT/HCPCS: 36415; 74177; 80053; 81001; 84484; 84703; 85025; 85378; 93005; 96361; 96374; 96375; 99285; Q9967